=== PATIENT | female | born 1970 ===

== ENCOUNTER 2017-01-10 13:39 | Emergency (ER) | payer MEDICAID, OTHER ==
[2017-01-10 13:43] VITALS: BMI 22.3
[2017-01-10 13:48] VITALS: TEMP 97.9; O2SAT 99
[2017-01-10] MEDS ORDERED: DiphenhydrAMINE 12.5 mg/5 ml LIQ UD (5 ml) PO STA (13:58)
--- NOTE | 2017-01-10 14:16 | ED PDOC ---
Arrival/HPI - General Chief Complaint: Allergic Reaction Time Seen by Provider: 01/10/17 13:51 Historian: Patient - History of Present Illness Narrative History of Present Illness (Text): 01/10/17 14:13 46yo female who present with complaint of pruritic rash x 2weeks. states she came to the ED today because of the worsening symptoms. Has been taking Benadryl without relieve. Denies drooling, stridor, new mediation/food/detergent , any other inciting factors. Past Medical History - Provider Review Nursing Documentation Reviewed: Yes - Infectious Disease Hx of Infectious Diseases: None - Cardiac Hx Cardiac Disorders: No - Pulmonary Hx Respiratory Disorders: No - Neurological Hx Neurological Disorder: No - HEENT Hx HEENT Disorder: No - Renal Hx Renal Disorder: No - Endocrine/Metabolic Hx Endocrine Disorders: No - Hematological/Oncological Hx Blood Disorders: No - Integumentary Hx Dermatological Disorder: No - Musculoskeletal/Rheumatological Hx Musculoskeletal Disorders: No Hx Falls: No - Gastrointestinal Hx Gastrointestinal Disorders: Yes Other/Comment: Diverticulosis - Genitourinary/Gynecological Hx Genitourinary Disorders: Yes (Fibroids) - Psychiatric Hx Psychophysiologic Disorder: No Hx Substance Use: No - Surgical History Other/Comment: Ovarian sx/ovarian cyst - Anesthesia Hx Anesthesia: Yes Hx Anesthesia Reactions: No Hx Malignant Hyperthermia: No Family/Social History - Physician Review Nursing Documentation Reviewed: Yes Family/Social History: Unknown Family HX Smoking Status: Former Smoker Hx Alcohol Use: Yes Frequency of alcohol use: Socially Hx Substance Use: No Allergies/Home Meds Allergies/Adverse Reactions: Allergies seafood Allergy (Severe, Uncoded 01/10/17 13:43) ANAPHYLAXIS Review of Systems - Physician Review All systems were reviewed & negative as marked: Yes - Review of Systems Constitutional: Normal Eyes: Normal ENT: Normal Respiratory: Normal Cardiovascular: Normal Gastrointestinal: Normal Genitourinary Female: Normal Musculoskeletal: Normal Skin: Rash, Pruritis Neurological: Normal Endocrine: Normal Hemo/Lymphatic: Normal Psychiatric: Normal Physical Exam Vital Signs Reviewed: Yes Vital Signs Temp Pulse Resp BP Pulse Ox 01/10/17 14:49 97.9 F 92 H 16 142/83 99 01/10/17 13:46 97.9 F 75 17 134/71 99 Temperature: Afebrile Blood Pressure: Normal Pulse: Regular Respiratory Rate: Normal Appearance: Positive for: Well-Appearing, Non-Toxic, Comfortable Pain Distress: None Mental Status: Positive for: Alert and Oriented X 3 - Systems Exam Head: Present: Atraumatic, Normocephalic Pupils: Present: PERRL Extroacular Muscles: Present: EOMI Conjunctiva: Present: Normal Mouth: Present: Moist Mucous Membranes. No: Drooling Pharnyx: No: Strider Neck: Present: Normal Range of Motion Respiratory/Chest: Present: Clear to Auscultation, Good Air Exchange. No: Respiratory Distress, Accessory Muscle Use, Wheezes Cardiovascular: Present: Regular Rate and Rhythm, Normal S1, S2. No: Murmurs Abdomen: Present: Normal Bowel Sounds. No: Tenderness, Distention, Peritoneal Signs Back: Present: Normal Inspection Upper Extremity: Present: Normal Inspection. No: Cyanosis, Edema Lower Extremity: Present: Normal Inspection. No: Edema Neurological: Present: GCS=15, CN II-XII Intact, Speech Normal Skin: Present: Warm, Dry, Rashes (Hives noted to the extremities), Normal Color Psychiatric: Present: Alert, Oriented x 3, Normal Insight, Normal Concentration Medical Decision Making ED Course and Treatment: 01/10/17 14:53 Pt was comfortable in ED. No stridor. No drooling noted. Lung was CTA b/l. PT was treated with Benadryl, pepcid and prednisone in ED. She was DC home with similar medication. Referred to a Block Breaker Operator. TRT ED for any new or worsening symptoms. - Medication Orders Current Medication Orders: Discontinued Medications Diphenhydramine HCl (Benadryl) 25 mg PO STAT STA Stop: 01/10/17 13:59 Last Admin: 01/10/17 14:17 Dose: 25 mg Famotidine (Pepcid) 20 mg PO STAT STA Stop: 01/10/17 13:58 Last Admin: 01/10/17 14:17 Dose: 20 mg Prednisone (Prednisone Tab) 40 mg PO STAT STA Stop: 01/10/17 13:58 Last Admin: 01/10/17 14:17 Dose: 40 mg Disposition/Present on Arrival - Present on Arrival Any Indicators Present on Arrival: No History of DVT/PE: No History of Uncontrolled Diabetes: No Urinary Catheter: No History of Decub. Ulcer: No History Surgical Site Infection Following: None - Disposition Have Diagnosis and Disposition been Completed?: Yes Diagnosis: Allergic reaction Disposition: HOME/ ROUTINE Disposition Time: 14:20 Patient Plan: Discharge Condition: STABLE Discharge Instructions (ExitCare): Urticaria (ED) Additional Instructions: Follow up with your Doctor Return to Ed for any new or worsening symptom Prescriptions: Famotidine [Pepcid] 20 mg PO DAILY #10 tab predniSONE [Prednisone] 20 mg PO BID #6 tab Referrals: Mustapha Chaves MD [Staff Provider] - Follow up with primary Forms: [employer] (Luxembourgish)
[2017-01-10 14:52] VITALS: BP 142/83; PULSE 92; RESP 16
== END 2017-01-10 14:25 | disposition home or self-care (01) ==
LOC: ED 13:39
DX: T78.40XA Allergy, unspecified, initial encounter (principal); Z87.891 Personal history of nicotine dependence

== ENCOUNTER 2017-10-14 12:52 | Emergency (ER) | payer MEDICAID ==
[2017-10-14 13:07] VITALS: TEMP 99.4; O2SAT 99; BMI 24.7
[2017-10-14] MEDS ORDERED: Sodium Chloride 0.9% 1,000 ML IV STA (13:33)
--- NOTE | 2017-10-14 13:33 | ED PDOC ---
Arrival/HPI - General Chief Complaint: ENT Problem Time Seen by Provider: 10/14/17 13:15 Historian: Patient - History of Present Illness Narrative History of Present Illness (Text): 10/14/17 13:30 A 47 year old female, whose past medical history includes fibroids and ovarian cyst, presents to the emergency department complaining of right flank pain radiating to RLQ with associated nausea for 3 weeks. Patient. Patient reports also experiencing 3 week history of left ear ache, as well as right ear ache with associated sore throat for 2 weeks. Patient was seen at the medical center and prescribed 10 days of Amoxicillin, however has had no relief of symptoms. Patient denies any vomiting, diarrhea, urinary frequency, dysuria, hematuria, shortness of breath, or any other complaints at this time. Also, patient mentions quitting smoking 5 months ago, is a social drinker, and denies any history of substance abuse. LMP 3 weeks ago. No PMD Associated Symptoms (Text): 10/14/17 16:40 Three-week history of right flank and right lower quadrant abdominal pain. Status post appendectomy. Patient also complains of bilateral earaches sore throat cough congestion and URI and wheezing. Past Medical History - Provider Review Nursing Documentation Reviewed: Yes - Infectious Disease Hx of Infectious Diseases: None - Cardiac Hx Cardiac Disorders: No - Pulmonary Hx Respiratory Disorders: No - Neurological Hx Neurological Disorder: No - HEENT Hx HEENT Disorder: No - Renal Hx Renal Disorder: No - Endocrine/Metabolic Hx Endocrine Disorders: No - Hematological/Oncological Hx Blood Disorders: No - Integumentary Hx Dermatological Disorder: No - Musculoskeletal/Rheumatological Hx Musculoskeletal Disorders: No Hx Falls: No - Gastrointestinal Hx Gastrointestinal Disorders: Yes Other/Comment: Diverticulosis - Genitourinary/Gynecological Hx Genitourinary Disorders: Yes (Fibroids) - Psychiatric Hx Psychophysiologic Disorder: No Hx Substance Use: Yes - Surgical History Other/Comment: Ovarian sx/ovarian cyst - Anesthesia Hx Anesthesia: Yes Hx Anesthesia Reactions: No Hx Malignant Hyperthermia: No Family/Social History - Physician Review Nursing Documentation Reviewed: Yes Family/Social History: No Known Family HX Smoking Status: Former Smoker (Quit smoking 6 months ago) Hx Alcohol Use: Yes Hx Substance Use: Yes Allergies/Home Meds Allergies/Adverse Reactions: Allergies seafood Allergy (Severe, Uncoded 10/14/17 13:07) ANAPHYLAXIS Review of Systems - Physician Review All systems were reviewed & negative as marked: Yes - Review of Systems ENT: Sore Throat, Other (left ear ache for 3 weeks; right ear ache for 2 weeks) Respiratory: Cough, Wheezing. absent: SOB Cardiovascular: absent: Chest Pain Gastrointestinal: Abdominal Pain (RLQ region), Nausea. absent: Diarrhea, Vomiting Genitourinary Female: absent: Dysuria, Frequency, Hematuria, Urine Output Changes Musculoskeletal: Other (right flank pain radiating to RLQ) Neurological: absent: Headache, Dizziness, Focal Weakness Physical Exam Vital Signs Reviewed: Yes Vital Signs Temp Pulse Resp BP Pulse Ox 10/14/17 16:37 81 10/14/17 15:45 81 17 132/80 99 10/14/17 13:02 99.4 F 85 18 138/88 99 Temperature: Afebrile Blood Pressure: Normal Pulse: Regular Respiratory Rate: Normal Appearance: Positive for: Well-Appearing, Non-Toxic, Comfortable Pain Distress: None Mental Status: Positive for: Alert and Oriented X 3 - Systems Exam Head: Present: Atraumatic, Normocephalic Pupils: Present: PERRL Extroacular Muscles: Present: EOMI Conjunctiva: Present: Normal Ears: Present: NORMAL TM (right ear canal clear; left ear canal has some cerumen ), Normal Canal. No: Erythema, TM Bulging Mouth: Present: Moist Mucous Membranes Pharnyx: Present: Normal. No: ERYTHEMA, EXUDATE, TONSILS ENLARGED Neck: Present: Normal Range of Motion Respiratory/Chest: Present: Wheezes (bilaterally), Rhonchi (bilaterally) Cardiovascular: Present: Regular Rate and Rhythm, Normal S1, S2. No: Murmurs, Rub Abdomen: Present: Tenderness (mild RLQ tenderness), Rebound. No: Guarding Back: Present: CVA Tenderness (mild) Upper Extremity: Present: Normal Inspection. No: Cyanosis, Edema Lower Extremity: Present: Normal Inspection. No: Edema Neurological: Present: GCS=15, CN II-XII Intact, Speech Normal, Motor Func Grossly Intact Skin: Present: Warm, Dry, Normal Color. No: Rashes Psychiatric: Present: Alert, Oriented x 3, Normal Insight, Normal Concentration Medical Decision Making ED Course and Treatment: 10/14/17 13:33 Impression: 47 year old female with right flank pain radiating to RLQ with associated nausea, as well as left ear ache, as well as right ear ache with associated sore throat. Physical exam shows right ear canal clear; left ear canal has some cerumen; normal throat exam, lungs wheezing/rhonchi bilaterally; mild CVA tenderness; mild RLQ tenderness with rebound, no guarding. Plan: -- Abd/Pelvis CT -- Labs -- Urinalysis -- IV Fluids -- Toradol -- Zofran -- Rapid Strep Group A Antigen -- Reassess and disposition Progress Notes: 10/14/17 16:43 Symptoms markedly improved post Toradol. - Lab Interpretations Lab Results: 10/14/17 13:44 10/14/17 13:44 Lab Results 10/14/17 13:44: Sodium 140, Potassium 3.6, Chloride 103, Carbon Dioxide 28, Anion Gap 13, BUN 8, Creatinine 0.6 L, Est GFR ( Amer) > 60, Est GFR (Non -Af Amer) > 60, Random Glucose 112 H, Calcium 9.4, Magnesium 2.0, Total Bilirubin 0.3, AST 29, ALT 30, Alkaline Phosphatase 102, Total Protein 7.3, Albumin 3.7, Globulin 3.6, Albumin/Globulin Ratio 1.0 L, Lipase 63 10/14/17 13:44: Grp A Beta Strep Ag Negative 10/14/17 13:44: WBC 12.5 H D, RBC 4.11, Hgb 13.2, Hct 37.8, MCV 92.0, MCH 32.1, MCHC 34.9, RDW 13.3, Plt Count 271, MPV 9.8, Gran % 67.9, Lymph % (Auto) 12.6 L , [place] % (Auto) 18.0 H, Eos % (Auto) 1.3 L, Baso % (Auto) 0.2, Gran # 8.50 H, Lymph # (Auto) 1.6, [place] # (Auto) 2.3 H, Eos # (Auto) 0.2, Baso # (Auto) 0.03 10/14/17 13:30: Urine Color Yellow, Urine Appearance Clear, Urine pH 6.0, Ur Specific [place] 1.010, Urine Protein Trace H, Urine Glucose (UA) Negative, Urine Ketones Negative, Urine Blood Trace-lysed H, Urine Nitrate Negative, Urine Bilirubin Negative, Urine Urobilinogen 0.2, Ur Leukocyte Esterase Trace H , Urine RBC 2 - 5, Urine WBC 5 - 10, Ur Epithelial Cells 6 - 8, Urine Bacteria Many - RAD Interpretation Radiology Orders: 10/14/17 13:33 ABD & PELVIS W/O PO OR IV CONT [CT] Stat 10/14/17 15:00 CHEST TWO VIEWS (PA/LAT) [RAD] Stat CT scan of the abdomen and pelvis is read by the radiologist shows right hydronephrosis with no definite stone present. There are phleboliths in the area. X-ray chest 2 views shows no infiltrate effusion cardiomegaly or pneumothorax Personnel Arbitrator: Radiologist - Medication Orders Current Medication Orders: Discontinued Medications Sodium Chloride (Sodium Chloride 0.9%) 1,000 mls @ 1,000 mls/hr IV .Q1H STA Stop: 10/14/17 14:32 Last Admin: 10/14/17 13:55 Dose: 1,000 mls/hr eMAR Start Stop Document 10/14/17 13:55 SF (Rec: 10/14/17 13:55 SF [email or web address]) Intravenous Solution Start Date 10/14/17 Start Time 13:55 End Date 10/14/17 End time 14:55 Total Infusion Time 60 Ketorolac Tromethamine (Toradol) 15 mg IVP STAT STA Stop: 10/14/17 13:34 Last Admin: 10/14/17 13:56 Dose: 15 mg MAR Pain Assessment Document 10/14/17 13:56 SF (Rec: 10/14/17 13:56 SF [id number]) Pain Reassessment Is this a pain reassessment? Yes Sleep Is patient sleeping during reassessment? No Presence of Pain Presence of Pain Yes IVP Administration Document 10/14/17 13:56 SF (Rec: 10/14/17 13:56 SF [email or web address]) Charges for Administration # of IVP Administrations 1 Ondansetron HCl (Zofran Inj) 4 mg IVP STAT STA Stop: 10/14/17 13:34 Last Admin: 10/14/17 13:56 Dose: 4 mg IVP Administration Document 10/14/17 13:56 SF (Rec: 10/14/17 13:56 SF [id number]) Charges for Administration # of IVP Administrations 1 - Scribe Statement The provider has reviewed the documentation as recorded by the Scribe Hanan Dabdi Provider Shaun Attestation: All medical record entries made by the Shaun were at my direction and personally dictated by me. I have reviewed the chart and agree that the record accurately reflects my personal performance of the history, physical exam, medical decision making, and the department course for this patient. I have also personally directed, reviewed, and agree with the discharge instructions and disposition. Disposition/Present on Arrival - Present on Arrival Any Indicators Present on Arrival: No History of DVT/PE: No History of Uncontrolled Diabetes: No Urinary Catheter: No History of Decub. Ulcer: No History Surgical Site Infection Following: None - Disposition Have Diagnosis and Disposition been Completed?: Yes Diagnosis: Hydronephrosis, Pharyngitis, Bronchitis Disposition: HOME/ ROUTINE Disposition Time: 15:31 Patient Plan: Discharge Condition: GOOD Discharge Instructions (ExitCare): Viral Pharyngitis, Hydronephrosis in Adults , Sore Throat in Adults, Acute Bronchitis Additional Instructions: Symptomatic treatment. Follow with PMD. Follow-up with urologist. Follow up in ER as needed. Prescriptions: Tramadol HCl [Ultram] 50 mg PO Q6 PRN #10 tab PRN Reason: Pain Albuterol HFA [Ventolin HFA 90 mcg/actuation (8 g)] 2 puff IH [id number] #1 puff Referrals: Bobby Stern MD [Staff Provider] - Follow up with primary Forms: [employer] (Georgian)
[2017-10-14 14:04] LABS: URINE BILIRUBIN NEGATIVE (NEGATIVE); URINE BLOOD TRACE-LYSED (NEGATIVE); URINE GLUCOSE (UA) NEGATIVE (NEGATIVE); URINE LEUKOCYTE ESTERASE TRACE Leu/uL (NEGATIVE); URINE PROTEIN TRACE mg/dL (<30 mg/dL); URINE UROBILINOGEN 0.2 E.U./dL (<1 E.U./dL)
[2017-10-14 14:11] LABS: URINE APPEARANCE CLEAR (CLEAR); URINE COLOR YELLOW (YELLOW)
[2017-10-14 14:15] LABS: URINE BACTERIA MANY (NEG)
[2017-10-14 14:21] LABS: BASO # 0.03 K/mm3 (0.0-2.0); BASO % 0.2 % (0.0-3.0); EOS # 0.2 (0.0-0.7); EOS % 1.3 % (1.5-5.0); GRAN # 8.5 (1.4-6.5); GRAN % 67.9 % (50.0-68.0); HEMOGLOBIN 13.2 g/dL (12.0-16.0); LYMPH # 1.6 (1.2-3.4); LYMPH % 12.6 % (22.0-35.0); MEAN CORPUSCULAR HEMOGLOBIN 32.1 pg (25.0-35.0); MEAN CORPUSCULAR HGB CONC 34.9 g/dl (31.0-37.0); MEAN PLATELET VOLUME 9.8 fl (7.0-11.0); MONO # 2.3 (0.1-0.6); RBC 4.11 10^6/uL (3.5-6.1); RED CELL DISTRIBUTION WIDTH 13.3 % (11.5-14.5); WHITE BLOOD COUNT 12.5 10^3/ul (4.5-11.0)
[2017-10-14 14:30] LABS: ALBUMIN 3.7 g/dL (3.0-4.8); ALT/SGPT 30 U/L (7-56); AST/SGOT 29 U/L (14-36); BLOOD UREA NITROGEN 8 mg/dL (7-21); CALCIUM 9.4 mg/dL (8.4-10.5); GFR AFRICAN-AMERICAN > 60; GFR NON-AFRICAN AMERICAN > 60; LIPASE 63 U/L (23-300)
--- NOTE | 2017-10-14 15:12 | CT ---
Date of service: 10/14/2017 PROCEDURE: CT Abdomen and Pelvis without intravenous contrast HISTORY: right stone run COMPARISON: None. TECHNIQUE: Unenhanced study. Neither oral nor intravenous contrast administered. Radiation dose: Total exam DLP = 339.12 mGy-cm. This CT exam was performed using one or more of the following dose reduction techniques: Automated exposure control, adjustment of the mA and/or kV according to patient size, and/or use of iterative reconstruction technique. FINDINGS: LOWER THORAX: Unremarkable. LIVER: Unremarkable. No gross lesion or ductal dilatation. GALLBLADDER AND BILE DUCTS: Unremarkable. PANCREAS: Unremarkable. No gross lesion or ductal dilatation. SPLEEN: Unremarkable. ADRENALS: Unremarkable. No mass. KIDNEYS AND URETERS: Right kidney in ureter: Mild right hydronephrosis and hydroureter. No definite calculi identified although there are several phleboliths in the vicinity of the distal right ureter and ureterovesical junction. No upper tract calculi identified. Unremarkable left kidney and ureter. VASCULATURE: Unremarkable. No aortic aneurysm. BOWEL: Diverticulosis without an acute inflammatory component or other associated pathologic process. Surgical suture lines proximal small bowel. No intrinsic abnormalities identified. APPENDIX: Surgical clips from prior appendectomy. PERITONEUM: Unremarkable. No free fluid. No free air. LYMPH NODES: Unremarkable. No enlarged lymph nodes. BLADDER: Unremarkable. REPRODUCTIVE: Unremarkable. BONES: No acute fracture. OTHER FINDINGS: Cystic pelvic mass which does not appear to be associate with the adnexa. This may represent focal fluid. IMPRESSION: Dilated right collecting system and ureter without visible calculus. No bladder abnormalities detected. Additional benign and/or incidental findings described above.
--- NOTE | 2017-10-14 15:27 | RAD ---
Date of service: 10/14/2017 HISTORY: Cough. COMPARISON: 06/27/2015 single-view chest. 06/27/2015 CT thorax TECHNIQUE: Chest PA and lateral FINDINGS: LUNGS: No active pulmonary disease. PLEURA: No significant pleural effusion identified. No pneumothorax apparent. CARDIOVASCULAR: Normal. OSSEOUS STRUCTURES: No significant abnormalities. VISUALIZED UPPER ABDOMEN: Normal. OTHER FINDINGS: None. IMPRESSION: No active disease. No significant interval change compared to the prior examination(s).
[2017-10-14 16:35] VITALS: BP 132/80; PULSE 81; RESP 17
== END 2017-10-14 15:45 | disposition home or self-care (01) ==
LOC: ED 12:52
DX: J02.9 Acute pharyngitis, unspecified (principal); N13.30 Unspecified hydronephrosis; J40 Bronchitis, not specified as acute or chronic; Z87.891 Personal history of nicotine dependence; Z90.49 Acquired absence of other specified parts of digestive tract
CPT/HCPCS: 71046; 74176; 80053; 81001; 83690; 83735; 85025; 87070; 87430; 96361; 96374; 96375; 99285; J1885; J2405; J7030

== ENCOUNTER 2018-02-02 05:43 | Inpatient (IN) | payer MEDICAID ==
[2018-02-02 05:44] VITALS: BMI 24.7
[2018-02-02] MEDS ORDERED: Sodium Chloride 0.9% 1,000 ML IV STA ×2 (06:00→07:38)
[2018-02-02] MEDS ORDERED: Morphine 4 mg/ml ISec IVP STA (06:00)
--- NOTE | 2018-02-02 06:03 | ED PDOC ---
Arrival/HPI - General Time Seen by Provider: 02/02/18 05:50 Historian: Patient - History of Present Illness Narrative History of Present Illness (Text): 02/02/18 06:00 47 y/o F w/ PMH of appendectomy, fibroids and ovarian cyst s/p gastric bypass(2008) presenting to the emergency department complaining of right flank pain for 1 week. The patient states pain is sharp worsened with deep inspiration. She reports chills and has been unable to tolerate PO for 3 days due to vomiting. She describes her pain as radiating her right side of the abdomen. Patient denies any dizziness, chest pain, cough, neck pain, urinary/bowel changes, or any other complaint. Time/Duration: 1 week Symptom Onset: Gradual Symptom Course: Worsening Quality: Stabbing Activities at Onset: Eating Context: Home Past Medical History - Provider Review Nursing Documentation Reviewed: Yes - Travel History Have you recently traveled outside [place] w/in the past 3 mons?: No - Infectious Disease Hx of Infectious Diseases: None - Cardiac Hx Cardiac Disorders: No - Pulmonary Hx Respiratory Disorders: No - Neurological Hx Neurological Disorder: No - HEENT Hx HEENT Disorder: No - Renal Hx Renal Disorder: No - Endocrine/Metabolic Hx Endocrine Disorders: No - Hematological/Oncological Hx Blood Disorders: No - Integumentary Hx Dermatological Disorder: No - Musculoskeletal/Rheumatological Hx Musculoskeletal Disorders: No Hx Falls: No - Gastrointestinal Hx Gastrointestinal Disorders: Yes Other/Comment: Diverticulosis - Genitourinary/Gynecological Hx Genitourinary Disorders: Yes (Fibroids) - Psychiatric Hx Psychophysiologic Disorder: No Hx Substance Use: Yes - Surgical History Other/Comment: Ovarian sx/ovarian cyst - Anesthesia Hx Anesthesia: Yes Hx Anesthesia Reactions: No Hx Malignant Hyperthermia: No Family/Social History - Physician Review Nursing Documentation Reviewed: Yes Family/Social History: No Known Family HX Smoking Status: Former Smoker Hx Alcohol Use: Yes Hx Substance Use: Yes Allergies/Home Meds Allergies/Adverse Reactions: Allergies seafood Allergy (Severe, Uncoded 10/14/17 13:07) ANAPHYLAXIS Home Medications: Home Meds Medication Instructions Recorded Confirmed No Known Home Med 02/02/18 02/02/18 Review of Systems - Physician Review All systems were reviewed & negative as marked: Yes - Review of Systems Constitutional: Night Sweats Respiratory: SOB (Unable to breath deep due to pain) Cardiovascular: absent: Chest Pain Gastrointestinal: Abdominal Pain (right flank and abdominal pain), Nausea, Vomiting Genitourinary Female: absent: Urine Output Changes Musculoskeletal: absent: Neck Pain Neurological: absent: Dizziness Physical Exam Vital Signs Reviewed: Yes Vital Signs Temp Pulse Resp BP Pulse Ox 02/02/18 05:58 99.3 F 105 H 18 165/98 H 97 Temperature: Afebrile Blood Pressure: Hypertensive Pulse: Tachycardic Respiratory Rate: Normal Appearance: Positive for: Non-Toxic, Other (Tearful on exam) Pain Distress: None Mental Status: Positive for: Alert and Oriented X 3 - Systems Exam Head: Present: Atraumatic, Normocephalic Pupils: Present: PERRL Extroacular Muscles: Present: EOMI Conjunctiva: Present: Normal Mouth: Present: Moist Mucous Membranes Neck: Present: Normal Range of Motion Respiratory/Chest: Present: Clear to Auscultation, Decreased Breath Sounds (shallow breath sounds bilaterally). No: Wheezes, Rales, Rhonchi Cardiovascular: Present: Regular Rate and Rhythm, Normal S1, S2. No: Murmurs Abdomen: Present: Tenderness (Tender to palpation: RUQ and right flank). No: Distention, Peritoneal Signs Back: Present: CVA Tenderness (R CVA tenderness) Upper Extremity: Present: Normal Inspection. No: Cyanosis, Edema Lower Extremity: Present: Normal Inspection. No: Edema Neurological: Present: GCS=15, CN II-XII Intact, Speech Normal Skin: Present: Warm, Dry, Normal Color. No: Rashes Psychiatric: Present: Alert, Oriented x 3, Normal Insight, Normal Concentration Medical Decision Making ED Course and Treatment: 02/02/18 06:04 Impression: 47 year old female presents with right flank and RUQ pain. Plan: -- Labs -- CT abd and pelvis -- Reglan -- Morphine -- Urinalysis --Urine culture -- Reassess and disposition Prior Visits: Notes and results from previous visits were reviewed. Patient was last seen in the emergency department on 10/14/17 with right flank pain and nausea, along with sore throat and earache, for 3 weeks following appendectomy. Patient was discharged with medication and instructed to follow up with PMD. Progress Notes: 02/02/18 0700 Labs show no evidence of leukocytosis. Pending CT a/p results. Signout given to Dr. Love who will resume the patient's care. - RAD Interpretation Radiology Orders: 02/02/18 05:58 ABD & PELVIS IV CONTRAST ONLY [CT] Stat - Scribe Statement The provider has reviewed the documentation as recorded by the Scribe Geovanni Blandon Provider Scribe Attestation: All medical record entries made by the Scribe were at my direction and personally dictated by me. I have reviewed the chart and agree that the record accurately reflects my personal performance of the history, physical exam, medical decision making, and the department course for this patient. I have also personally directed, reviewed, and agree with the discharge instructions and disposition. Disposition/Present on Arrival - Present on Arrival Any Indicators Present on Arrival: No History of DVT/PE: No History of Uncontrolled Diabetes: No Urinary Catheter: No History of Decub. Ulcer: No History Surgical Site Infection Following: None - Disposition Have Diagnosis and Disposition been Completed?: Yes Diagnosis: UTI (urinary tract infection), Sepsis, Pyelonephritis Disposition: HOSPITALIZED Disposition Time: 07:00 Patient Problems: Current Active Problems Problem Status Onset UTI (urinary tract infection) Acute Sepsis Acute Pyelonephritis Acute Condition: GUARDED
[2018-02-02 06:38] LABS: BASO # 0.02 K/mm3 (0.0-2.0); BASO % 0.3 % (0.0-3.0); EOS # 0.1 (0.0-0.7); EOS % 1.2 % (1.5-5.0); GRAN # 5.41 (1.4-6.5); GRAN % 77.9 % (50.0-68.0); MEAN CORPUSCULAR HEMOGLOBIN 31.4 pg (25.0-35.0); MEAN CORPUSCULAR HGB CONC 33.7 g/dl (31.0-37.0); MEAN PLATELET VOLUME 10.3 fl (7.0-11.0); MONO # 0.4 (0.1-0.6); MONO % 5.6 % (1.0-6.0); RBC 4.46 10^6/uL (3.5-6.1); RED CELL DISTRIBUTION WIDTH 13.5 % (11.5-14.5); WHITE BLOOD COUNT 6.9 10^3/uL (4.5-11.0)
[2018-02-02 07:10] LABS: VENOUS BLOOD GAS BASE EXCESS 6.4 mmol/L (0.0-2.0); VENOUS BLOOD GAS PO2 19 mm/Hg (30-55); VENOUS BLOOD PH 7.43 (7.32-7.43)
--- NOTE | 2018-02-02 07:17 | ED PDOC ---
Physical Exam Vital Signs Reviewed: Yes Vital Signs Temp Pulse Resp BP Pulse Ox 02/02/18 05:58 99.3 F 105 H 18 165/98 H 97 Temperature: Afebrile Blood Pressure: Hypertensive Pulse: Tachycardic Respiratory Rate: Normal Appearance: Positive for: Well-Appearing, Non-Toxic, Comfortable Pain Distress: None Mental Status: Positive for: Alert and Oriented X 3 Medical Decision Making ED Course and Treatment: 02/02/18 07:16 Patient endorsed to me by Dr. Weston. Patient is a 47 year old female presenting with right flank pain. Currently waiting lab and CT results. 02/02/18 07:38 Upon reassessment, patient's temperature was measured to be 103 degrees. CODE SEPSIS called. 02/02/18 08:33 Procedure: Chest X-ray Impression: No focal consolidation, significant pleural effusion, or definite pneumothorax identified. Dictator: Vero Spears MD 02/02/18 10:09 Procedure: CT Abdomen and Pelvis without intravenous contrast Impression: Mild right hydronephrosis and mild hydroureter without evidence of renal calculus. This is unchanged from prior exam however there is new mild perinephric fat infiltration. Enlarged leiomyomatous uterus. New left ovarian cyst measuring roughly 2.9 centimeters. Recommend follow-up pelvic ultrasound. Dictator: J Luis Jackson MD Antibiotics administered. Vitals stable. Dr. Tarango accepts patient to hospitalist service. - Lab Interpretations Lab Results: 02/02/18 06:15 Lab Results 02/02/18 06:15: WBC 6.9, RBC 4.46, Hgb 14.0, Hct 41.5, MCV 93.0, MCH 31.4, MCHC 33.7, RDW 13.5, Plt Count 228, MPV 10.3, Gran % 77.9 H, Lymph % (Auto) 15.0 L, [place] % (Auto) 5.6, Eos % (Auto) 1.2 L, Baso % (Auto) 0.3, Gran # 5.41, Lymph # (Auto) 1.0 L, [place] # (Auto) 0.4, Eos # (Auto) 0.1, Baso # (Auto) 0.02 - RAD Interpretation Radiology Orders: 02/02/18 05:58 ABD & PELVIS IV CONTRAST ONLY [CT] Stat 02/02/18 06:07 CHEST PORTABLE [RAD] Stat - Medication Orders Current Medication Orders: Discontinued Medications Sodium Chloride (Sodium Chloride 0.9%) 1,000 mls @ 999 mls/hr IV .Q1H1M STA Stop: 02/02/18 07:00 Last Admin: 02/02/18 06:22 Dose: 999 mls/hr eMAR Start Stop Document 02/02/18 06:22 SS (Rec: 02/02/18 06:22 SS [id number]) Intravenous Solution Start Date 02/02/18 Start Time 06:22 End Date 02/02/18 End time 07:22 Total Infusion Time 60 Metoclopramide HCl (Reglan) 10 mg IVP STAT STA Stop: 02/02/18 06:01 Last Admin: 02/02/18 06:22 Dose: 10 mg IVP Administration Document 02/02/18 06:22 SS (Rec: 02/02/18 06:22 SS [id number]) Charges for Administration # of IVP Administrations 1 Morphine Sulfate (Morphine) 4 mg IVP STAT STA Stop: 02/02/18 06:01 Disposition/Present on Arrival - Present on Arrival Any Indicators Present on Arrival: No History of DVT/PE: No History of Uncontrolled Diabetes: No Urinary Catheter: No History of Decub. Ulcer: No History Surgical Site Infection Following: None - Disposition Have Diagnosis and Disposition been Completed?: Yes Diagnosis: UTI (urinary tract infection), Sepsis, Pyelonephritis Disposition: HOSPITALIZED Disposition Time: 09:55 Patient Plan: Admission, Telemetry Condition: GUARDED
[2018-02-02 07:28] LABS: ALBUMIN 4.3 g/dL (3.0-4.8); ALT/SGPT 23 U/L (7-56); AST/SGOT 38 U/L (14-36); BLOOD UREA NITROGEN 10 mg/dL (7-21); CALCIUM 9.3 mg/dL (8.4-10.5); GFR NON-AFRICAN AMERICAN > 60; LIPASE 127 U/L (23-300)
[2018-02-02 07:38] LABS: TROPONIN I < 0.01 ng/mL
[2018-02-02] MEDS ORDERED: Piperacill/Tazo 4.5gm in NS 4.5 GM/100 ML BAG IVPB STA (07:39)
[2018-02-02] MEDS ORDERED: Vancomycin 1gm in NS 250ml 1 GM/250 ML BAG IVPB STA (07:39)
[2018-02-02 07:44] LABS: PH,URINE >=9.0 (4.7-8.0); URINE APPEARANCE CLOUDY (CLEAR); URINE BILIRUBIN SMALL (NEGATIVE); URINE BLOOD LARGE (NEGATIVE); URINE COLOR LIGHT RED (YELLOW); URINE GLUCOSE (UA) NEGATIVE (NEGATIVE); URINE LEUKOCYTE ESTERASE TRACE Leu/uL (NEGATIVE); URINE PROTEIN 100 mg/dL (<30 mg/dL)
[2018-02-02 07:55] LABS: HCG,QUALITATIVE URINE NEGATIVE (NEGATIVE)
[2018-02-02 07:57] LABS: URINE RBC TNTC /hpf (0-2)
[2018-02-02 07:59] LABS: URINE BACTERIA LARGE (NEG)
--- NOTE | 2018-02-02 08:26 | RAD ---
HISTORY: abdominal pain COMPARISON: Chest x-ray performed 10/14/17 TECHNIQUE: Chest, one view. FINDINGS: LUNGS: No focal consolidation. Please note that chest x-ray has limited sensitivity for the detection of pulmonary masses. PLEURA: No significant pleural effusion identified. No definite pneumothorax . CARDIOVASCULAR: Heart size appears within normal limits. No significant atherosclerotic calcification present. OSSEOUS STRUCTURES: No acute osseous abnormality identified. VISUALIZED UPPER ABDOMEN: Unremarkable. OTHER FINDINGS: None. IMPRESSION: No focal consolidation, significant pleural effusion, or definite pneumothorax identified.
--- NOTE | 2018-02-02 09:53 | CT ---
Date of service: 02/02/2018 PROCEDURE: CT Abdomen and Pelvis without intravenous contrast HISTORY: R flank pain COMPARISON: 10/14/2017 TECHNIQUE: Technique. Contrast dose: Radiation dose: Total exam DLP = 343.84 mGy-cm. This CT exam was performed using one or more of the following dose reduction techniques: Automated exposure control, adjustment of the mA and/or kV according to patient size, and/or use of iterative reconstruction technique. FINDINGS: LOWER THORAX: Unremarkable. LIVER: Unremarkable. No gross lesion or ductal dilatation. GALLBLADDER AND BILE DUCTS: Unremarkable. PANCREAS: Unremarkable. No gross lesion or ductal dilatation. SPLEEN: Unremarkable. ADRENALS: Unremarkable. No mass. KIDNEYS AND URETERS: Mild right hydronephrosis and mild hydroureter without evidence of renal calculus. This is unchanged from prior exam however there is new mild perinephric fat infiltration. VASCULATURE: Unremarkable. No aortic aneurysm. No aortic atherosclerotic calcification or mural plaque present. BOWEL: Dilated segment of small bowel in the vicinity of previously noted surgical sutures. APPENDIX: Unremarkable. Normal appendix. PERITONEUM: Unremarkable. No free fluid. No free air. LYMPH NODES: Unremarkable. No enlarged lymph nodes. BLADDER: Unremarkable. REPRODUCTIVE: Enlarged leiomyomatous uterus. New left ovarian cyst measuring roughly 2.9 centimeters. Recommend follow-up pelvic ultrasound. BONES: No acute fracture. OTHER FINDINGS: None. IMPRESSION: Mild right hydronephrosis and mild hydroureter without evidence of renal calculus. This is unchanged from prior exam however there is new mild perinephric fat infiltration. Enlarged leiomyomatous uterus. New left ovarian cyst measuring roughly 2.9 centimeters. Recommend follow-up pelvic ultrasound.
[2018-02-02 10:00] LABS: VENOUS BLOOD GAS BASE EXCESS 0.6 mmol/L (0.0-2.0); VENOUS BLOOD GAS PO2 159 mm/Hg (30-55); VENOUS BLOOD PH 7.44 (7.32-7.43)
--- NOTE | 2018-02-02 11:24 | PCM.SEPTIC ---
Sepsis Progress Note - Reassessment Type Date of Evaluation: 02/02/18 Time of Evaluation: 11:22 Reassessment Type: Non-invasive reassessment - Non Invasive Reassessment Were the most recent vital sign reviewed: Yes Vital Sign (Latest): Temp Pulse Resp BP Pulse Ox 97.5 F L 105 H 18 175/86 H 96 02/02/18 10:13 02/02/18 10:13 02/02/18 10:13 02/02/18 10:13 02/02/18 10:13 Cardiovascular: Yes: Regular Rate, Rhythm. No: Chest Non Tender, JVD, Murmur, Tachycardia, Irregularly Irregular Respiratory: Yes: Normal Breath Sounds. No: Rales, Rhonchi, Stridor, Wheezing Capillary Refill: Normal (Less than 2 sec) Pulses: Normal Radial, Normal Dorsalis Pedis, Normal Posterior Tibialis Skin: Normal Color, Warm - Invasive Reassessment (complete 2 of 4) Was a Central Venous Pressure Measurement obtained within 6 Hours after the presentation of septic shock: No Was a central venous oxygen measurement obtained within 6 hours after the presentation of septic shock: No Was a bedside cardiovascular ultrasound performed within 6 hours after the presentation of septic shock: No Was a passive leg raise performed or was a fluid challenge performed within 6 hrs of the initial fluid bolus: No Passive Leg Raise Result: Not Applicable Fluid Challenge performed: No
[2018-02-02] MEDS: Morphine 2 mg/ml ISec IVP PRN ×2 (12:45→20:32)
[2018-02-02] MEDS: Piperacillin/Tazobact 3.375 gm 100 ML IVPB SCH ×2 (12:47→18:31)
[2018-02-02] MEDS: Sodium Chloride 0.9% 1,000 ML IV SCH ×2 (12:55→20:34)
--- NOTE | 2018-02-02 13:15 | CP.PCM.HP ---
<María ElenaOusmane - Last Filed: 02/02/18 17:09> History of Present Illness - History of Present Illness History of Present Illness: PGY-1 H&P for Dr. Tarango's service cc: R flank pain Patient is a 47 year old female with past medical history of appendectomy, fibroids, ovarian cysts, alcohol and drug abuse (which patient denies) presenting with worsening R sided flank pain x 1 week with associated fever (Tmax 103) x 2 days. Patient states the pain is acute in onset, sharp, and localized to the R flank/RUQ with no radiation of pain down to the groin. She took Motrin at home for pain which did not help. Patient also endorses nausea and vomiting for the past 3 days with multiple episodes of non-bloody, non- bilious vomiting prior to arrival and in the ED prior to interview. No h eadaches, dizziness, changes in vision, chest pain, palpitations, acute shortness of breath, cough, diarrhea, constipation, dysuria, urinary frequency or urgency, or changes in stool. Code sepsis called in the ED at 11:22 AM, temperature of 103 on admission with lactate of 2.6. PMHx: alcohol abuse, drug abuse (pt denies both), fibroids, ovarian cysts PSHx: appendectomy, tubal ligation, fibroids removal Allergies: NKDA Home Medications: denies Social Hx: former smoker, denies alcohol or illicit drug use--hx of cocaine and opiates abuse per chart FHx: noncontributory PMD: Dr. Ward Insurance: [employer] Present on Admission - Present on Admission Any Indicators Present on Admission: No Review of Systems - Review of Systems All systems: reviewed and no additional remarkable complaints except Review of Systems: as per HPI Past Patient History - Infectious Disease Hx of Infectious Diseases: None - Past Social History Smoking Status: Former Smoker - CARDIAC Hx Cardiac Disorders: No - PULMONARY Hx Respiratory Disorders: No - NEUROLOGICAL Hx Neurological Disorder: No - HEENT Hx HEENT Problems: No - RENAL Hx Chronic Kidney Disease: No - ENDOCRINE/METABOLIC Hx Endocrine Disorders: No - HEMATOLOGICAL/ONCOLOGICAL Hx Blood Disorders: No - INTEGUMENTARY Hx Dermatological Problems: No - MUSCULOSKELETAL/RHEUMATOLOGICAL Hx Musculoskeletal Disorders: No Hx Falls: No - GASTROINTESTINAL Hx Gastrointestinal Disorders: Yes Other/Comment: Diverticulosis - GENITOURINARY/GYNECOLOGICAL Hx Genitourinary Disorders: Yes (Fibroids) - PSYCHIATRIC Hx Psychophysiologic Disorder: No Hx Substance Use: Yes - SURGICAL HISTORY Other/Comment: Ovarian sx/ovarian cyst - ANESTHESIA Hx Anesthesia: Yes Hx Anesthesia Reactions: No Hx Malignant Hyperthermia: No Meds Allergies/Adverse Reactions: Allergies Allergy/AdvReac Type Severity Reaction Status Date / Time seafood Allergy Severe ANAPHYLAXIS Uncoded 10/14/17 13:07 Physical Exam - Constitutional Appears: In Acute Distress - Head Exam Head Exam: ATRAUMATIC, NORMAL INSPECTION, NORMOCEPHALIC - Eye Exam Eye Exam: EOMI, Normal appearance Pupil Exam: NORMAL ACCOMODATION - ENT Exam ENT Exam: Mucous Membranes Moist, Normal Exam - Neck Exam Neck exam: Positive for: Full Rom, Normal Inspection - Respiratory Exam Respiratory Exam: Clear to Auscultation Bilateral, NORMAL BREATHING PATTERN. absent: Rales, Rhonchi, Wheezes, Respiratory Distress, Stridor - Cardiovascular Exam Cardiovascular Exam: Tachycardia, +S1, +S2 - GI/Abdominal Exam GI & Abdominal Exam: Normal Bowel Sounds, Soft, Tenderness (TTP RUQ). absent: Distended, Firm, Guarding, Rebound, Rigid - Extremities Exam Extremities exam: Positive for: normal capillary refill, normal inspection, pedal pulses present. Negative for: calf tenderness, joint swelling, pedal edema - Back Exam Back exam: CVA tenderness (R), NORMAL INSPECTION - Neurological Exam Neurological exam: Alert, CN II-XII Intact, Oriented x3 - Psychiatric Exam Psychiatric exam: Normal Affect, Normal Mood - Skin Skin Exam: Dry, Intact, Normal Color, Warm Results - Vital Signs Recent Vital Signs: Last Vital Signs Temp 103.0 F H 02/02/18 13:00 Pulse 92 H 02/02/18 13:00 Resp 16 02/02/18 13:00 BP 132/81 02/02/18 13:00 Pulse Ox 96 02/02/18 13:00 - Labs Result Diagrams: 02/02/18 06:15 02/02/18 06:15 Labs: Laboratory Results - last 24 hr 02/02/18 02/02/18 02/02/18 06:15 06:15 06:15 WBC 6.9 RBC 4.46 Hgb 14.0 Hct 41.5 MCV 93.0 MCH 31.4 MCHC 33.7 RDW 13.5 Plt Count 228 MPV 10.3 Gran % 77.9 H Lymph % (Auto) 15.0 L [place] % (Auto) 5.6 Eos % (Auto) 1.2 L Baso % (Auto) 0.3 Gran # 5.41 Lymph # (Auto) 1.0 L [place] # (Auto) 0.4 Eos # (Auto) 0.1 Baso # (Auto) 0.02 pO2 19 L VBG pH 7.43 VBG pCO2 48.0 VBG HCO3 31.9 H VBG Total CO2 33.4 H VBG O2 Sat (Calc) 32.0 L VBG Base Excess 6.4 H VBG Potassium 3.8 Sodium 139.0 140 Chloride 100.0 99 Glucose 118 H Lactate 2.4 H FiO2 21.0 Potassium 3.9 Carbon Dioxide 30 Anion Gap 14 BUN 10 Creatinine 0.7 Est GFR ( Amer) > 60 Est GFR (Non-Af Amer) > 60 Random Glucose 117 H Calcium 9.3 Magnesium 1.9 Total Bilirubin 0.2 AST 38 H D ALT 23 Alkaline Phosphatase 121 Troponin I < 0.01 Total Protein 8.5 H Albumin 4.3 Globulin 4.2 Albumin/Globulin Ratio 1.0 L Lipase 127 Beta HCG, Quant Venous Blood Potassium 3.8 Urine Color Urine Appearance Urine pH Ur Specific Comfort Urine Protein Urine Glucose (UA) Urine Ketones Urine Blood Urine Nitrate Urine Bilirubin Urine Urobilinogen Ur Leukocyte Esterase Urine RBC Urine WBC Urine Bacteria Urine HCG, Qual 02/02/18 02/02/18 02/02/18 06:15 07:25 09:15 WBC RBC Hgb Hct MCV MCH MCHC RDW Plt Count MPV Gran % Lymph % (Auto) [place] % (Auto) Eos % (Auto) Baso % (Auto) Gran # Lymph # (Auto) [place] # (Auto) Eos # (Auto) Baso # (Auto) pO2 159 H VBG pH 7.44 H VBG pCO2 36.0 L VBG HCO3 24.5 VBG Total CO2 25.6 VBG O2 Sat (Calc) 98.7 H VBG Base Excess 0.6 VBG Potassium 3.2 L Sodium 138.0 Chloride 107.0 Glucose 107 H Lactate 0.6 L FiO2 21.0 Potassium Carbon Dioxide Anion Gap BUN Creatinine Est GFR ( Amer) Est GFR (Non-Af Amer) Random Glucose Calcium Magnesium Total Bilirubin AST ALT Alkaline Phosphatase Troponin I Total Protein Albumin Globulin Albumin/Globulin Ratio Lipase Beta HCG, Quant < 2.39 Venous Blood Potassium 3.2 L Urine Color Light red Urine Appearance Cloudy Urine pH >=9.0 Ur Specific Comfort 1.015 Urine Protein 100 H Urine Glucose (UA) Negative Urine Ketones 40 H Urine Blood Large H Urine Nitrate Negative Urine Bilirubin Small H Urine Urobilinogen 2.0 H Ur Leukocyte Esterase Trace H Urine RBC Tntc Urine WBC TEST NOT PERFORMED Urine Bacteria Large Urine HCG, Qual Negative Assessment & Plan - Assessment and Plan (Free Text) Assessment: 47 year old female with past medical history of appendectomy, fibroids, and ovarian cysts presenting with worsening R sided flank pain x 1 week with associated fever (Tmax 103) x 2 days. Code sepsis called in the ED at 11:22 AM, temperature of 103 on admission with lactate of 2.6. Plan: R flank pain with associated nausea/vomiting -code sepsis called in ED: pt febrile on admission 103, lactate 2.6 -repeat lactate 0.6 -no leukocytosis -lipase wnl -AST/ALT: 38/23 -CVA positive R -UA: large blood, trace LE, + protein, ketones -given reglan, morphine 4 mg x1, tylenol, vanc/zosyn in the ED -CXR: no acute findings -CT abdomen/pelvis: mild R hydronephrosis and mild hydroureter w/o evidence of renal calculus; unchanged from prior exam, however there is new mild perinephric fat infiltration; enlarged leiomyomatous uterus, new L ovarian cyst measuring 2.9 cm; recommend f/u pelvis ultrasound -f/u UCx -UDS -BCx -morphine 2q6h prn for pain -zofran 4q4 prn for nausea -tylenol q6 prn for fever -c/w zosyn -IVF @ 125 cc/hr -liquid diet -ID consult on board PPx, Diet, Disposition -Diet: liquid diet -Dispo: continue to monitor, advance diet as tolerated Case discussed with Dr. Emelina Ring DO, PGY-1 <Shun Tarango - Last Filed: 02/03/18 07:05> Results - Vital Signs Recent Vital Signs: Last Vital Signs Temp 100.3 F H 02/03/18 06:50 Pulse 87 02/03/18 00:00 Resp 18 02/03/18 04:00 BP 138/83 02/03/18 00:00 Pulse Ox 96 02/03/18 00:00 - Labs Result Diagrams: 02/02/18 06:15 02/02/18 06:15 Labs: Laboratory Results - last 24 hr 02/02/18 02/02/18 02/02/18 06:15 06:15 06:15 pO2 19 L VBG pH 7.43 VBG pCO2 48.0 VBG HCO3 31.9 H VBG Total CO2 33.4 H VBG O2 Sat (Calc) 32.0 L VBG Base Excess 6.4 H VBG Potassium 3.8 Sodium 139.0 140 Chloride 100.0 99 Glucose 118 H Lactate 2.4 H FiO2 21.0 Potassium 3.9 Carbon Dioxide 30 Anion Gap 14 BUN 10 Creatinine 0.7 Est GFR ( Amer) > 60 Est GFR (Non-Af Amer) > 60 Random Glucose 117 H Calcium 9.3 Magnesium 1.9 Total Bilirubin 0.2 AST 38 H D ALT 23 Alkaline Phosphatase 121 Troponin I < 0.01 Total Protein 8.5 H Albumin 4.3 Globulin 4.2 Albumin/Globulin Ratio 1.0 L Lipase 127 Beta HCG, Quant < 2.39 Venous Blood Potassium 3.8 Urine Color Urine Appearance Urine pH Ur Specific Comfort Urine Protein Urine Glucose (UA) Urine Ketones Urine Blood Urine Nitrate Urine Bilirubin Urine Urobilinogen Ur Leukocyte Esterase Urine RBC Urine WBC Urine Bacteria Urine HCG, Qual Salicylates Urine Opiates Screen Urine Methadone Screen Ur Barbiturates Screen Ur Phencyclidine Scrn Ur Amphetamines Screen U Benzodiazepines Scrn U Oth Cocaine Metabols U Cannabinoids Screen Alcohol, Quantitative 02/02/18 02/02/18 02/02/18 07:25 09:15 16:06 pO2 159 H VBG pH 7.44 H VBG pCO2 36.0 L VBG HCO3 24.5 VBG Total CO2 25.6 VBG O2 Sat (Calc) 98.7 H VBG Base Excess 0.6 VBG Potassium 3.2 L Sodium 138.0 Chloride 107.0 Glucose 107 H Lactate 0.6 L FiO2 21.0 Potassium Carbon Dioxide Anion Gap BUN Creatinine Est GFR ( Amer) Est GFR (Non-Af Amer) Random Glucose Calcium Magnesium Total Bilirubin AST ALT Alkaline Phosphatase Troponin I Total Protein Albumin Globulin Albumin/Globulin Ratio Lipase Beta HCG, Quant Venous Blood Potassium 3.2 L Urine Color Light red Urine Appearance Cloudy Urine pH >=9.0 Ur Specific Comfort 1.015 Urine Protein 100 H Urine Glucose (UA) Negative Urine Ketones 40 H Urine Blood Large H Urine Nitrate Negative Urine Bilirubin Small H Urine Urobilinogen 2.0 H Ur Leukocyte Esterase Trace H Urine RBC Tntc Urine WBC TEST NOT PERFORMED Urine Bacteria Large Urine HCG, Qual Negative Salicylates < 1 L Urine Opiates Screen Urine Methadone Screen Ur Barbiturates Screen Ur Phencyclidine Scrn Ur Amphetamines Screen U Benzodiazepines Scrn U Oth Cocaine Metabols U Cannabinoids Screen Alcohol, Quantitative 02/02/18 02/02/18 16:06 16:59 pO2 VBG pH VBG pCO2 VBG HCO3 VBG Total CO2 VBG O2 Sat (Calc) VBG Base Excess VBG Potassium Sodium Chloride Glucose Lactate FiO2 Potassium Carbon Dioxide Anion Gap BUN Creatinine Est GFR ( Amer) Est GFR (Non-Af Amer) Random Glucose Calcium Magnesium Total Bilirubin AST ALT Alkaline Phosphatase Troponin I Total Protein Albumin Globulin Albumin/Globulin Ratio Lipase Beta HCG, Quant Venous Blood Potassium Urine Color Urine Appearance Urine pH Ur Specific Comfort Urine Protein Urine Glucose (UA) Urine Ketones Urine Blood Urine Nitrate Urine Bilirubin Urine Urobilinogen Ur Leukocyte Esterase Urine RBC Urine WBC Urine Bacteria Urine HCG, Qual Salicylates Urine Opiates Screen Positive H Urine Methadone Screen Negative Ur Barbiturates Screen Negative Ur Phencyclidine Scrn Negative Ur Amphetamines Screen Negative U Benzodiazepines Scrn Negative U Oth Cocaine Metabols Negative U Cannabinoids Screen Positive H Alcohol, Quantitative < 10 Attending/Attestation - Attestation I have personally seen and examined this patient.: Yes I have fully participated in the care of the patient.: Yes I have reviewed all pertinent clinical information: Yes Notes (Text): 02/02/18 47 year old female with past medical history of fibroids, ovarian cyst and substance abuse who presented with complaint of fever, right sided flank pain and intractable nausea/vomiting. She was found to have mild right hydronephrosis and mild hydroureter without evidence of renal calculus with mild perinephric fat infiltration on CT scan. Continue with IV fluids, antiemetics and antibiotics while awaiting cultures. ID evaluation is also requested. CT scan also showed left ovarian cyst and enlarged leiomyatous uterus. Recommended outpatient gynecology follow up. Urine drug screen ordered given history of substance (cocaine) abuse. Shun Tarango MD Hospitalist.
[2018-02-02 17:54] LABS: BARBITURATES, UR NEGATIVE (NEGATIVE); BENZODIAZEPINES, UR NEGATIVE (NEGATIVE); OPIATES, UR POSITIVE (NEGATIVE); PHENCYCLIDINE, UR NEGATIVE (NEGATIVE)
[2018-02-02] MEDS ORDERED: Piperacillin/Tazobact 3.375 gm 100 ML IVPB SCH (18:00)
--- NOTE | 2018-02-02 19:30 | CARD ---
APPROVED REPORT Date of service: 02/02/2018 EKG Measurement Heart [id number] <Conclusion> Normal sinus rhythm Normal Electrocardiogram
[2018-02-03] MEDS: Piperacillin/Tazobact 3.375 gm 100 ML IVPB SCH ×3 (00:35→11:37)
[2018-02-03] MEDS: Morphine 2 mg/ml ISec IVP PRN ×2 (01:32→06:50)
[2018-02-03] MEDS: Sodium Chloride 0.9% 1,000 ML IV SCH ×3 (06:26→23:57)
--- NOTE | 2018-02-03 07:25 | CP.PCM.PN ---
<Ousmane Ring - Last Filed: 02/03/18 15:40> Subjective - Date & Time of Evaluation Date of Evaluation: 02/03/18 Time of Evaluation: 07:25 - Subjective Subjective: PGY-1 Medicine Progress Note for Dr. Tarango's service Patient seen and examined at bedside this AM. No acute overnight events reported. Patient continues to endorse R sided flank/abdominal pain, nausea, and 1 new episode of vomiting overnight. Also complains of L sided headache primarily localized to temporal region for the past week. Denies hx of migraine. 12 pt ROS otherwise negative. Objective - Vital Signs/Intake and Output Vital Signs (last 24 hours): Temp Pulse Resp BP Pulse Ox 100.3 F H 87 18 138/83 96 02/03/18 06:50 02/03/18 00:00 02/03/18 04:00 02/03/18 00:00 02/03/18 00:00 Intake and Output: 02/03/18 02/03/18 06:59 18:59 Intake Total 640 Output Total 3 Balance 637 - Medications Medications: Current Medications Acetaminophen (Tylenol 325mg Tab) 650 mg PO Q6H PRN PRN Reason: Fever >100.4 F Last Admin: 02/03/18 06:50 Dose: 650 mg Piperacillin Sod/Tazobactam Sod (Zosyn 3.375 In Ns 100ml) 100 mls @ 200 mls/hr IVPB Q6H BECCA; Protocol Last Admin: 02/03/18 06:26 Dose: 200 mls/hr Sodium Chloride (Sodium Chloride 0.9%) 1,000 mls @ 125 mls/hr IV .Q8H BECCA Last Admin: 02/03/18 06:26 Dose: 125 mls/hr Morphine Sulfate (Morphine) 2 mg IVP Q6H PRN PRN Reason: Pain, severe (8-10) Last Admin: 02/03/18 06:50 Dose: 2 mg Ondansetron HCl (Zofran Inj) 4 mg IVP Q4H PRN PRN Reason: Nausea/Vomiting Last Admin: 02/02/18 20:30 Dose: 4 mg - Labs Labs: 02/02/18 06:15 02/02/18 06:15 - Constitutional Appears: Non-toxic, No Acute Distress - Head Exam Head Exam: ATRAUMATIC, NORMAL INSPECTION, NORMOCEPHALIC - Eye Exam Eye Exam: EOMI, Normal appearance Pupil Exam: NORMAL ACCOMODATION - ENT Exam ENT Exam: Mucous Membranes Moist, Normal Exam, Normal External Ear Exam - Neck Exam Neck Exam: Full ROM, Normal Inspection - Respiratory Exam Respiratory Exam: Clear to Ausculation Bilateral, NORMAL BREATHING PATTERN. absent: Accessory Muscle Use, Rales, Rhonchi, Wheezes, Respiratory Distress, Stridor - Cardiovascular Exam Cardiovascular Exam: Tachycardia, +S1, +S2 - GI/Abdominal Exam GI & Abdominal Exam: Soft, Tenderness (TTP RUQ), Normal Bowel Sounds. absent: Distended, Firm, Guarding, Rigid, Organomegaly, Rebound - Extremities Exam Extremities Exam: Full ROM, Normal Capillary Refill, Normal Inspection. absent: Calf Tenderness, Joint Swelling, Pedal Edema - Back Exam Back Exam: CVA tenderness (R), NORMAL INSPECTION - Neurological Exam Neurological Exam: Alert, Awake, Oriented x3 - Psychiatric Exam Psychiatric exam: Normal Affect, Normal Mood - Skin Skin Exam: Dry, Intact, Normal Color, Warm Assessment and Plan - Assessment and Plan (Free Text) Assessment: 47 year old female with past medical history of appendectomy, fibroids, and ovarian cysts presenting with worsening R sided flank pain x 1 week with associated fever (Tmax 103) x 2 days. Code sepsis called in the ED at 11:22 AM, temperature of 103 on admission with lactate of 2.6, repeat lactate 0.6. Plan: R flank pain with associated nausea/vomiting -code sepsis called in ED: pt febrile on admission 103, lactate 2.6 -repeat lactate 0.6 -no leukocytosis -lipase wnl -AST/ALT: 38/23 -CVA positive R -UA: large blood, trace LE, + protein, ketones -given reglan, morphine 4 mg x1, tylenol, vanc/zosyn in the ED -CXR: no acute findings -CT abdomen/pelvis: mild R hydronephrosis and mild hydroureter w/o evidence of renal calculus; unchanged from prior exam, however there is new mild perinephric fat infiltration; enlarged leiomyomatous uterus, new L ovarian cyst measuring 2.9 cm; recommend f/u pelvis ultrasound -BCx prelim: gram negative kimmie x1 -Urine Cx prelim: gram negative kimmie x1 -UDS: positive cannabinoids, opiates -morphine 2q6h prn for pain -zofran 4q4 prn for nausea -tylenol q6 prn for fever and headache -c/w zosyn -IVF @ 125 cc/hr -liquid diet -ID recs (Dr. Montaño) appreciated -will start on meropenem PPx, Diet, Disposition -Diet: liquid diet -Dispo: continue to monitor, advance diet as tolerated Case discussed with Dr. Emelina Ring DO, PGY-1 <Shun Tarango - Last Filed: 02/03/18 15:50> Objective - Vital Signs/Intake and Output Vital Signs (last 24 hours): Temp Pulse Resp BP Pulse Ox 100.3 F H 93 H 20 134/85 99 02/03/18 08:07 02/03/18 08:07 02/03/18 08:07 02/03/18 08:07 02/03/18 08:07 Intake and Output: 02/03/18 02/03/18 06:59 18:59 Intake Total 2780 Output Total 3 Balance 2777 - Medications Medications: Current Medications Acetaminophen (Tylenol 325mg Tab) 650 mg PO Q6H PRN PRN Reason: Fever >100.4 F Sodium Chloride (Sodium Chloride 0.9%) 1,000 mls @ 125 mls/hr IV .Q8H BECCA Last Admin: 02/03/18 06:26 Dose: 125 mls/hr Meropenem (Merrem Iv 1 Gm Premix) 1 gm in 50 mls @ 100 mls/hr IVPB Q8 BECCA; Protocol Last Admin: 02/03/18 13:50 Dose: 100 mls/hr Morphine Sulfate (Morphine) 2 mg IVP Q6H PRN PRN Reason: Pain, severe (8-10) Last Admin: 02/03/18 13:51 Dose: 2 mg Ondansetron HCl (Zofran Inj) 4 mg IVP Q4H PRN PRN Reason: Nausea/Vomiting Last Admin: 02/03/18 13:50 Dose: 4 mg - Labs Labs: 02/03/18 08:00 02/03/18 08:00 Attending/Attestation - Attestation I have personally seen and examined this patient.: Yes I have fully participated in the care of the patient.: Yes I have reviewed all pertinent clinical information, including history, physical exam and plan: Yes Notes (Text): 02/03/18 15:48 47 year old female with past medical history of fibroids, ovarian cyst and substance abuse who presented with complaint of fever, right sided flank pain and intractable nausea/vomiting. She was found to have mild right hydronephrosis and mild hydroureter without evidence of renal calculus with mild perinephric fat infiltration on CT scan. BCx/UCx is growing gram negative rods. ID evaluation was requested who switched antibiotics to meropenem. CT scan also showed left ovarian cyst and enlarged leiomyatous uterus. Recommended outpatient gynecology follow up. Patient is complaining of headaches; CT head is ordered. Urine drug screen was positive for marijuana and opiates. Patient was counselled on risks of continued substance abuse. Will replete and repeat potassium. Shun Tarango MD Hospitalist.
[2018-02-03 08:51] LABS: BASO # 0.02 K/mm3 (0.0-2.0); BASO % 0.2 % (0.0-3.0); EOS # 0.1 (0.0-0.7); EOS % 0.6 % (1.5-5.0); GRAN # 6.67 (1.4-6.5); GRAN % 69.2 % (50.0-68.0); HEMOGLOBIN 11.2 g/dL (12.0-16.0); LYMPH # 1.9 (1.2-3.4); LYMPH % 20.1 % (22.0-35.0); MEAN CELL VOLUME 93.4 fl (80.0-105.0); MEAN CORPUSCULAR HEMOGLOBIN 30.8 pg (25.0-35.0); MEAN CORPUSCULAR HGB CONC 32.9 g/dl (31.0-37.0); MEAN PLATELET VOLUME 10.6 fl (7.0-11.0); MONO % 9.9 % (1.0-6.0); RBC 3.64 10^6/uL (3.5-6.1); RED CELL DISTRIBUTION WIDTH 13.5 % (11.5-14.5); WHITE BLOOD COUNT 9.7 10^3/uL (4.5-11.0)
[2018-02-03 08:58] LABS: ALBUMIN 3.1 g/dL (3.0-4.8); ALT/SGPT 37 U/L (7-56); AST/SGOT 48 U/L (14-36); BLOOD UREA NITROGEN 6 mg/dL (7-21); CALCIUM 7.5 mg/dL (8.4-10.5); GFR NON-AFRICAN AMERICAN > 60
[2018-02-03] MEDS ORDERED: Potassium Chloride 20 mEq ER Tab PO ONE (10:44)
--- NOTE | 2018-02-03 12:17 | CP.PCM.PCO ---
Physician Communication Note - Physician Communication Note Physician Communication Note: patient not in room-will see pt berta;GNB in blood with pyelo-start Merrem
--- NOTE | 2018-02-03 13:11 | CT ---
Date of service: 02/03/2018 PROCEDURE: CT HEAD WITHOUT CONTRAST. HISTORY: L sided head pain x 1-2 weeks COMPARISON: Noncontrast head CT performed 06/27/15 TECHNIQUE: Axial computed tomography images were obtained through the head/brain without intravenous contrast. Radiation dose: Total exam DLP = 803.01 mGy-cm. This CT exam was performed using one or more of the following dose reduction techniques: Automated exposure control, adjustment of the mA and/or kV according to patient size, and/or use of iterative reconstruction technique. FINDINGS: HEMORRHAGE: No intracranial hemorrhage. BRAIN: No mass effect or edema. The buitrago-white matter differentiation appears intact. Please note that MRI with diffusion imaging is more sensitive in the detection of acute ischemic event. VENTRICLES: No hydrocephalus. CALVARIUM: Unremarkable. PARANASAL SINUSES: Unremarkable as visualized. No significant inflammatory changes. MASTOID AIR CELLS: Unremarkable as visualized. No inflammatory changes. OTHER FINDINGS: None. IMPRESSION: No acute intracranial pathology identified.
[2018-02-03] MEDS: Meropenem IV 1 gm in NS 1 GM/50 ML BAG IVPB SCH ×2 (13:50→21:07)
[2018-02-03] MEDS: Morphine 4 mg/ml ISec IVP PRN ×2 (13:51→19:30)
[2018-02-03] MEDS ORDERED: Oxycodone/Acetaminophen 5/325 mg Tab PO ONE ×2 (19:01→23:45)
[2018-02-03] MEDS: guaiFENesin 100 mg/5 ml Syrup UD PO PRN (21:07)
[2018-02-03] MEDS ORDERED: Oxycodone/Acetaminophen 5/325 mg Tab PO PRN (23:47)
[2018-02-04] MEDS: guaiFENesin 100 mg/5 ml Syrup UD PO PRN ×2 (03:50→08:42)
[2018-02-04] MEDS: Morphine 4 mg/ml ISec IVP PRN ×3 (03:50→17:21)
[2018-02-04] MEDS: Sodium Chloride 0.9% 1,000 ML IV SCH (04:00)
[2018-02-04] MEDS: Meropenem IV 1 gm in NS 1 GM/50 ML BAG IVPB SCH ×3 (05:52→21:52)
--- NOTE | 2018-02-04 07:30 | CP.PCM.PN ---
<Ousmane Ring - Last Filed: 02/04/18 18:46> Subjective - Date & Time of Evaluation Date of Evaluation: 02/04/18 Time of Evaluation: 07:30 - Subjective Subjective: PGY-1 Medicine Progress Note for Dr. Gaston's service Patient seen and examined at bedside this AM. No acute overnight events reported. Patient continues to endorse R flank/abdominal pain, L sided headache. Patient tolerating liquid diet well with no active vomiting/diarrhea. 12 pt ROS otherwise negative at this time. Objective - Vital Signs/Intake and Output Vital Signs (last 24 hours): Temp Pulse Resp BP Pulse Ox 98.0 F 83 19 149/94 H 98 02/03/18 17:15 02/04/18 06:00 02/03/18 17:15 02/03/18 17:15 02/03/18 17:15 Intake and Output: 02/04/18 02/04/18 06:59 18:59 Intake Total 1740 Balance 1740 - Medications Medications: Current Medications Acetaminophen (Tylenol 325mg Tab) 650 mg PO Q6H PRN PRN Reason: Fever >100.4 F Guaifenesin (Robitussin) 100 mg PO Q4H PRN PRN Reason: Cough Last Admin: 02/04/18 03:50 Dose: 100 mg Sodium Chloride (Sodium Chloride 0.9%) 1,000 mls @ 125 mls/hr IV .Q8H BECCA Last Admin: 02/04/18 04:00 Dose: Not Given Meropenem (Merrem Iv 1 Gm Premix) 1 gm in 50 mls @ 100 mls/hr IVPB Q8 BECCA; Protocol Last Admin: 02/04/18 05:52 Dose: 100 mls/hr Morphine Sulfate (Morphine) 2 mg IVP Q6H PRN PRN Reason: Pain, severe (8-10) Last Admin: 02/04/18 03:50 Dose: 2 mg Ondansetron HCl (Zofran Inj) 4 mg IVP Q4H PRN PRN Reason: Nausea/Vomiting Last Admin: 02/03/18 23:38 Dose: 4 mg - Labs Labs: 02/03/18 08:00 02/03/18 08:00 - Constitutional Appears: Non-toxic, No Acute Distress - Head Exam Head Exam: ATRAUMATIC, NORMAL INSPECTION, NORMOCEPHALIC - Eye Exam Eye Exam: EOMI, Normal appearance Pupil Exam: NORMAL ACCOMODATION - ENT Exam ENT Exam: Mucous Membranes Moist, Normal Exam - Neck Exam Neck Exam: Full ROM, Normal Inspection - Respiratory Exam Respiratory Exam: Clear to Ausculation Bilateral, NORMAL BREATHING PATTERN. absent: Accessory Muscle Use, Rales, Rhonchi, Wheezes, Respiratory Distress, Stridor - Cardiovascular Exam Cardiovascular Exam: REGULAR RHYTHM, +S1, +S2 - GI/Abdominal Exam GI & Abdominal Exam: Soft, Tenderness Additional comments: TTP RUQ, RLQ - Extremities Exam Extremities Exam: Normal Capillary Refill, Normal Inspection. absent: Calf Tenderness, Joint Swelling, Pedal Edema - Back Exam Back Exam: CVA tenderness (R), NORMAL INSPECTION - Neurological Exam Neurological Exam: Alert, Awake, Oriented x3 - Psychiatric Exam Psychiatric exam: Normal Affect, Normal Mood - Skin Skin Exam: Dry, Intact, Normal Color, Warm Assessment and Plan - Assessment and Plan (Free Text) Assessment: 47 year old female with past medical history of fibroids, ovarian cyst and substance abuse who presented with complaint of fever, right sided flank pain and intractable nausea/vomiting. She was found to have mild right hydronephrosis and mild hydroureter without evidence of renal calculus with mild perinephric fat infiltration on CT scan. BCx/UCx is growing gram negative rods. ID evaluation was requested who switched antibiotics to meropenem. Plan: Sepsis 2/2 gram negative bacilli bacteremia 2/2 R pyelonephritis -code sepsis called in ED: pt febrile on admission 103, lactate 2.6 -repeat lactate 0.6 -no leukocytosis -lipase wnl -AST/ALT: 56/51 -UA: large blood, trace LE, + protein, ketones -given reglan, morphine 4 mg x1, tylenol, vanc/zosyn in the ED -CXR: no acute findings -CT abdomen/pelvis: mild R hydronephrosis and mild hydroureter w/o evidence of renal calculus; unchanged from prior exam, however there is new mild perinephric fat infiltration; enlarged leiomyomatous uterus, new L ovarian cyst measuring 2.9 cm; recommend f/u pelvis ultrasound -pelvic ultrasound: 1.9 x 1.7 x 1.7 cm L ovarian follicle/cyst -repeat CXR (02/04): patchy R sided opacities involving mid-lower lung, suspicious for pneumonia -BCx prelim: gram negative kimmie x1 -Urine Cx: e coli -UDS: positive cannabinoids, opiates -morphine 2q6h prn for pain -zofran 4q4 prn for nausea -tylenol q6 prn for fever and headache -c/w zosyn -IVF @ 125 cc/hr -liquid diet -ID recs (Dr. Montaño) appreciated -c/w meropenem New onset cough -f/u CXR -Mucinex LA 600 mg BID PPx, Diet, Disposition -Diet: liquid diet -Dispo: continue to monitor, advance diet as tolerated Case discussed with Dr. Alek Ring DO, PGY-1 <Promise Gaston R - Last Filed: 02/05/18 14:34> Objective - Vital Signs/Intake and Output Vital Signs (last 24 hours): Temp Pulse Resp BP Pulse Ox 98 F 71 20 147/88 98 02/05/18 08:21 02/05/18 10:00 02/05/18 08:21 02/05/18 08:21 02/05/18 08:21 - Medications Medications: Current Medications Acetaminophen (Tylenol 325mg Tab) 650 mg PO Q6H PRN PRN Reason: Fever >100.4 F Last Admin: 02/04/18 17:37 Dose: 650 mg Docusate Sodium (Colace) 100 mg PO BID [facility] Last Admin: 02/05/18 10:20 Dose: 100 mg Guaifenesin (Mucinex La) 600 mg PO BID BECCA Last Admin: 02/05/18 10:19 Dose: 600 mg Guaifenesin (Robitussin) 100 mg PO Q4H PRN PRN Reason: Cough Last Admin: 02/05/18 03:16 Dose: 100 mg Heparin Sodium (Porcine) (Heparin) 5,000 units SC Q8 BECCA; Protocol Last Admin: 02/05/18 14:08 Dose: 5,000 units Ceftriaxone Sodium (Rocephin 2 Gm Ivpb) 2 gm in 100 mls @ 100 mls/hr IVPB DAILY BECCA; Protocol Last Admin: 02/05/18 10:16 Dose: 100 mls/hr Sodium Chloride (Sodium Chloride 0.9%) 1,000 mls @ 100 mls/hr IV .Q10H BECCA Last Admin: 02/05/18 12:07 Dose: 100 mls/hr Ketorolac Tromethamine (Toradol) 15 mg IVP DAILY PRN PRN Reason: Pain, moderate (4-7) Morphine Sulfate (Morphine) 2 mg IVP Q6H PRN PRN Reason: Pain, severe (8-10) Stop: 02/06/18 13:36 Last Admin: 02/05/18 14:07 Dose: 2 mg Ondansetron HCl (Zofran Inj) 4 mg IVP Q4H PRN PRN Reason: Nausea/Vomiting Last Admin: 02/05/18 10:19 Dose: 4 mg - Labs Labs: 02/05/18 05:30 02/05/18 05:30 Attending/Attestation - Attestation I have personally seen and examined this patient.: Yes I have fully participated in the care of the patient.: Yes I have reviewed all pertinent clinical information, including history, physical exam and plan: Yes Notes (Text): Patient seen and examined by me with resident at 8:45AM on 02/04/18. Case including HPI, physical exam, and assessment and plan discussed with resident. Agree with above with following additions/corrections. Patient is a 47-year-old female with past medical history significant for fibroids, ovarian cysts, alcohol abuse, and drug abuse that presented to the emergency room with right flank pain. Patient states that she is not feeling great. States she is still have right flank pain. Patient states pain medications are helping a little. Radiates to right upper quadrant. Pain is constant. Patient also complains of left sided throbbing headache. States this has been going on for more than a week. No change in vision. No associated dizziness or lightheadedness. No nausea or vomiting. No chest pain or shortness of breath. No fevers or chills today. No dysuria. Patient does complain of a cough. Physical exam: General: Awake and alert sitting up in bed in no acute distress. HEENT: Normocephalic, atraumatic. Extraocular muscles intact, pupils equal and reactive, no scleral icterus. Oropharynx is pink and moist. Neck is supple Cardiovascular: Regular rhythm. Normal S1 and S2. No murmurs, rubs, or gallops appreciated Pulmonary: Normal respiratory effort. No rhonchi, rales, or wheezing appreciated. Gastrointestinal: Soft, nondistended. Mild right upper quadrant tenderness. Positive bowel sounds all 4 quadrants. No guarding. Musculoskeletal: Moves all extremities. No calf tenderness. no edema appreciated. Positive right sided CVA tenderness. Central nervous system: AAOx3 Dermatologic: Skin warm and dry. Assessment and plan: Patient is a 47-year-old female with past medical history significant for fibroids, ovarian cysts, alcohol abuse, and drug abuse that presented to the emergency room with right flank pain. 1. Sepsis secondary to UTI and pyelonephritis. Bacteremia. Sepsis resolved. No leukocytosis. Patient is afebrile. CT abdomen and pelvis per radiologist showed mild right hydronephrosis with mild hydroureter without evidence of renal calculus, this is unchanged from prior exam however there is new mild perinephric fat infiltration; enlarged leiomyomatous uterus; new left ovarian cysts measuring roughly 2.9 cm. Follow-up pelvic ultrasound. ID following, recommendations appreciated. Urine culture positive for Escherichia coli. One of 2 blood cultures positive for gram-negative rods. Continue meropenem. 2. Cough. Placed on Mucinex. Follow-up chest x-ray. 3. Headache. Head CT per radiologist showed no acute intracranial pathology identified. Will give dose of Fioricet. 4. Hypokalemia. Replete potassium. Continue to monitor. 5. DVT prophylaxis. Heparin Case discussed in detail with the patient regarding current diagnosis and treatment plan. All questions answered.
[2018-02-04] MEDS ORDERED: Potassium Chloride 20 mEq ER Tab PO ONE (08:33)
[2018-02-04 08:49] LABS: BASO # 0.02 K/mm3 (0.0-2.0); BASO % 0.2 % (0.0-3.0); EOS # 0.3 (0.0-0.7); EOS % 2.9 % (1.5-5.0); GRAN # 7.46 (1.4-6.5); GRAN % 68.1 % (50.0-68.0); HEMOGLOBIN 12.7 g/dL (12.0-16.0); LYMPH # 2.1 (1.2-3.4); LYMPH % 19.5 % (22.0-35.0); MEAN CELL VOLUME 92.3 fl (80.0-105.0); MEAN CORPUSCULAR HEMOGLOBIN 31.5 pg (25.0-35.0); MEAN CORPUSCULAR HGB CONC 34.1 g/dl (31.0-37.0); MONO % 9.3 % (1.0-6.0); RBC 4.03 10^6/uL (3.5-6.1); RED CELL DISTRIBUTION WIDTH 13.5 % (11.5-14.5)
[2018-02-04 09:14] LABS: ALB/GLOB RATIO 0.9 (1.1-1.8); ALBUMIN 3.4 g/dL (3.0-4.8); ALT/SGPT 51 U/L (7-56); AST/SGOT 56 U/L (14-36); BLOOD UREA NITROGEN 3 mg/dL (7-21); CALCIUM 7.9 mg/dL (8.4-10.5); GFR NON-AFRICAN AMERICAN > 60
[2018-02-04] MEDS: guaiFENesin 600 mg ER Tab PO SCH ×2 (10:18→17:24)
[2018-02-04] MEDS ORDERED: Apap-Butalbital-Caffeine 325-50-40mg Tab PO ONE (10:50)
--- NOTE | 2018-02-04 11:03 | CP.PCM.CON ---
History of Present Illness - History of Present Illness History of Present Illness: 47 year old female with PMH of appendectomy, uterine fibroids, ovarian cysts, history of polysubstance abuse, S/P tubal ligation came in to [facility] because of right flank and right upper quadrant for the past 2 days prior to admission associated with radiation to the groin area as well as fevers and chills. She was also having nausea and vomiting. CT A/P is showing right hydronephrosis and mild perinephric infiltration, and blood and urine cx are showing gram negative bacilli. She still has some nausea but has been afebrile this morning, still had fevers yesterday, still with flank pain but a little better, no vomiting, no diarrhea. Infectious diseases consult is requested to further evaluate and manage. Review of Systems - Review of Systems All systems: reviewed and no additional remarkable complaints except (as per HPI) Past Patient History - Infectious Disease Hx of Infectious Diseases: None - Past Social History Smoking Status: Former Smoker - CARDIAC Hx Cardiac Disorders: No - PULMONARY Hx Respiratory Disorders: No - NEUROLOGICAL Hx Neurological Disorder: No - HEENT Hx HEENT Problems: No - RENAL Hx Chronic Kidney Disease: No - ENDOCRINE/METABOLIC Hx Endocrine Disorders: No - HEMATOLOGICAL/ONCOLOGICAL Hx Blood Disorders: No - INTEGUMENTARY Hx Dermatological Problems: No - MUSCULOSKELETAL/RHEUMATOLOGICAL Hx Musculoskeletal Disorders: No Hx Falls: No - GASTROINTESTINAL Hx Gastrointestinal Disorders: Yes Other/Comment: Diverticulosis - GENITOURINARY/GYNECOLOGICAL Hx Genitourinary Disorders: Yes (Fibroids) - PSYCHIATRIC Hx Psychophysiologic Disorder: No Hx Substance Use: Yes - SURGICAL HISTORY Other/Comment: Ovarian sx/ovarian cyst - ANESTHESIA Hx Anesthesia: Yes Hx Anesthesia Reactions: No Hx Malignant Hyperthermia: No Meds Allergies/Adverse Reactions: Allergies Allergy/AdvReac Type Severity Reaction Status Date / Time seafood Allergy Severe ANAPHYLAXIS Uncoded 10/14/17 13:07 - Medications Medications: Current Medications Acetaminophen (Tylenol 325mg Tab) 650 mg PO Q6H PRN PRN Reason: Fever >100.4 F Last Admin: 02/02/18 13:22 Dose: 650 mg Piperacillin Sod/Tazobactam Sod (Zosyn 3.375 In Ns 100ml) 100 mls @ 200 mls/hr IVPB Q6H BECCA; Protocol Last Admin: 02/02/18 18:31 Dose: 200 mls/hr Sodium Chloride (Sodium Chloride 0.9%) 1,000 mls @ 125 mls/hr IV .Q8H BECCA Last Admin: 02/02/18 12:55 Dose: 125 mls/hr Morphine Sulfate (Morphine) 2 mg IVP Q6H PRN PRN Reason: Pain, severe (8-10) Last Admin: 02/02/18 12:45 Dose: 2 mg Ondansetron HCl (Zofran Inj) 4 mg IVP Q4H PRN PRN Reason: Nausea/Vomiting Last Admin: 02/02/18 12:40 Dose: 4 mg Physical Exam - Constitutional Appears: Chronically Ill - Head Exam Head Exam: NORMAL INSPECTION - Respiratory Exam Respiratory Exam: Decreased Breath Sounds - Cardiovascular Exam Cardiovascular Exam: +S1, +S2 - GI/Abdominal Exam GI & Abdominal Exam: Soft. absent: Tenderness Results - Vital Signs Recent Vital Signs: Last Vital Signs Temp 100.5 F H 02/02/18 18:45 Pulse 85 02/02/18 18:45 Resp 16 02/02/18 18:45 BP 148/84 02/02/18 18:45 Pulse Ox 97 02/02/18 18:45 - Labs Result Diagrams: 02/04/18 08:30 02/04/18 08:30 Labs: Laboratory Results - last 24 hr 02/02/18 02/02/18 02/02/18 06:15 06:15 06:15 WBC 6.9 RBC 4.46 Hgb 14.0 Hct 41.5 MCV 93.0 MCH 31.4 MCHC 33.7 RDW 13.5 Plt Count 228 MPV 10.3 Gran % 77.9 H Lymph % (Auto) 15.0 L [place] % (Auto) 5.6 Eos % (Auto) 1.2 L Baso % (Auto) 0.3 Gran # 5.41 Lymph # (Auto) 1.0 L [place] # (Auto) 0.4 Eos # (Auto) 0.1 Baso # (Auto) 0.02 pO2 19 L VBG pH 7.43 VBG pCO2 48.0 VBG HCO3 31.9 H VBG Total CO2 33.4 H VBG O2 Sat (Calc) 32.0 L VBG Base Excess 6.4 H VBG Potassium 3.8 Sodium 139.0 140 Chloride 100.0 99 Glucose 118 H Lactate 2.4 H FiO2 21.0 Potassium 3.9 Carbon Dioxide 30 Anion Gap 14 BUN 10 Creatinine 0.7 Est GFR ( Amer) > 60 Est GFR (Non-Af Amer) > 60 Random Glucose 117 H Calcium 9.3 Magnesium 1.9 Total Bilirubin 0.2 AST 38 H D ALT 23 Alkaline Phosphatase 121 Troponin I < 0.01 Total Protein 8.5 H Albumin 4.3 Globulin 4.2 Albumin/Globulin Ratio 1.0 L Lipase 127 Beta HCG, Quant Venous Blood Potassium 3.8 Urine Color Urine Appearance Urine pH Ur Specific [place] Urine Protein Urine Glucose (UA) Urine Ketones Urine Blood Urine Nitrate Urine Bilirubin Urine Urobilinogen Ur Leukocyte Esterase Urine RBC Urine WBC Urine Bacteria Urine HCG, Qual Salicylates Urine Opiates Screen Urine Methadone Screen Ur Barbiturates Screen Ur Phencyclidine Scrn Ur Amphetamines Screen U Benzodiazepines Scrn U Oth Cocaine Metabols U Cannabinoids Screen Alcohol, Quantitative 02/02/18 02/02/18 02/02/18 06:15 07:25 09:15 WBC RBC Hgb Hct MCV MCH MCHC RDW Plt Count MPV Gran % Lymph % (Auto) [place] % (Auto) Eos % (Auto) Baso % (Auto) Gran # Lymph # (Auto) [place] # (Auto) Eos # (Auto) Baso # (Auto) pO2 159 H VBG pH 7.44 H VBG pCO2 36.0 L VBG HCO3 24.5 VBG Total CO2 25.6 VBG O2 Sat (Calc) 98.7 H VBG Base Excess 0.6 VBG Potassium 3.2 L Sodium 138.0 Chloride 107.0 Glucose 107 H Lactate 0.6 L FiO2 21.0 Potassium Carbon Dioxide Anion Gap BUN Creatinine Est GFR ( Amer) Est GFR (Non-Af Amer) Random Glucose Calcium Magnesium Total Bilirubin AST ALT Alkaline Phosphatase Troponin I Total Protein Albumin Globulin Albumin/Globulin Ratio Lipase Beta HCG, Quant < 2.39 Venous Blood Potassium 3.2 L Urine Color Light red Urine Appearance Cloudy Urine pH >=9.0 Ur Specific [place] 1.015 Urine Protein 100 H Urine Glucose (UA) Negative Urine Ketones 40 H Urine Blood Large H Urine Nitrate Negative Urine Bilirubin Small H Urine Urobilinogen 2.0 H Ur Leukocyte Esterase Trace H Urine RBC Tntc Urine WBC TEST NOT PERFORMED Urine Bacteria Large Urine HCG, Qual Negative Salicylates Urine Opiates Screen Urine Methadone Screen Ur Barbiturates Screen Ur Phencyclidine Scrn Ur Amphetamines Screen U Benzodiazepines Scrn U Oth Cocaine Metabols U Cannabinoids Screen Alcohol, Quantitative 02/02/18 02/02/18 02/02/18 16:06 16:06 16:59 WBC RBC Hgb Hct MCV MCH MCHC RDW Plt Count MPV Gran % Lymph % (Auto) [place] % (Auto) Eos % (Auto) Baso % (Auto) Gran # Lymph # (Auto) [place] # (Auto) Eos # (Auto) Baso # (Auto) pO2 VBG pH VBG pCO2 VBG HCO3 VBG Total CO2 VBG O2 Sat (Calc) VBG Base Excess VBG Potassium Sodium Chloride Glucose Lactate FiO2 Potassium Carbon Dioxide Anion Gap BUN Creatinine Est GFR ( Amer) Est GFR (Non-Af Amer) Random Glucose Calcium Magnesium Total Bilirubin AST ALT Alkaline Phosphatase Troponin I Total Protein Albumin Globulin Albumin/Globulin Ratio Lipase Beta HCG, Quant Venous Blood Potassium Urine Color Urine Appearance Urine pH Ur Specific [place] Urine Protein Urine Glucose (UA) Urine Ketones Urine Blood Urine Nitrate Urine Bilirubin Urine Urobilinogen Ur Leukocyte Esterase Urine RBC Urine WBC Urine Bacteria Urine HCG, Qual Salicylates < 1 L Urine Opiates Screen Positive H Urine Methadone Screen Negative Ur Barbiturates Screen Negative Ur Phencyclidine Scrn Negative Ur Amphetamines Screen Negative U Benzodiazepines Scrn Negative U Oth Cocaine Metabols Negative U Cannabinoids Screen Positive H Alcohol, Quantitative < 10 Assessment & Plan - Assessment and Plan (Free Text) Plan: Assessment Sepsis due to gram negative bacilli bacteremia due to right sided pyelonephritis S/P appendectomy uterine fibroids ovarian cysts history of polysubstance abuse S/P tubal ligation Plan Started Merrem and will follow up final identification and sensitivities of the gram negative bacilli in the blood and urine follow up HIV test will monitor clinically
[2018-02-04] MEDS ORDERED: Potassium & Sodium Phosphate PO ONE (11:38)
--- NOTE | 2018-02-04 13:10 | RAD ---
HISTORY: intractable cough, fevers, r/o focal infection COMPARISON: Chest x-ray performed 02/02/18 TECHNIQUE: Chest, one view. FINDINGS: LUNGS: Interval development of patchy airspace opacities within the right mid to lower lung bates on the right suspicious for pneumonia. PLEURA: No significant pleural effusion identified. No definite pneumothorax . CARDIOVASCULAR: Heart size appears within normal limits. No significant atherosclerotic calcification present. OSSEOUS STRUCTURES: No acute osseous abnormality identified. VISUALIZED UPPER ABDOMEN: Unremarkable. OTHER FINDINGS: None. IMPRESSION: Patchy right-sided airspace opacities predominantly involving the right mid to lower lung field suspicious for pneumonia.
--- NOTE | 2018-02-04 16:38 | US ---
Date of service: 02/04/2018 HISTORY: hx fibroids, l ovarian cyst, abdominal pain COMPARISON: None available. TECHNIQUE: Transabdominal pelvic ultrasound. FINDINGS: UTERUS: Measures 8.5 x 4.6 x 4.5 cm. ENDOMETRIUM: Measures 6 mm in diameter. CERVIX: Cervix length measures approximately 3.7 cm. RIGHT OVARY: Not visualized. LEFT OVARY: Measures 3.2 x 2.6 x 2.7 cm. Blood flow is demonstrated. 1.9 x 1.7 x 1.7 cm follicle/cyst. FREE FLUID: No significant free fluid noted. OTHER FINDINGS: None. IMPRESSION: The right ovary is not visualized. 1.9 x 1.7 x 1.7 cm left ovarian follicle/cyst.
[2018-02-05] MEDS: Morphine 4 mg/ml ISec IVP PRN (00:37)
[2018-02-05] MEDS: guaiFENesin 100 mg/5 ml Syrup UD PO PRN ×2 (03:16→16:00)
[2018-02-05] MEDS: Meropenem IV 1 gm in NS 1 GM/50 ML BAG IVPB SCH (05:15)
[2018-02-05 07:11] LABS: BASO # 0.04 K/mm3 (0.0-2.0); BASO % 0.5 % (0.0-3.0); EOS # 0.5 (0.0-0.7); EOS % 6.2 % (1.5-5.0); GRAN # 4.57 (1.4-6.5); GRAN % 55.7 % (50.0-68.0); LYMPH # 2.1 (1.2-3.4); LYMPH % 25.8 % (22.0-35.0); MEAN CELL VOLUME 90.8 fl (80.0-105.0); MEAN CORPUSCULAR HEMOGLOBIN 30.6 pg (25.0-35.0); MEAN CORPUSCULAR HGB CONC 33.7 g/dl (31.0-37.0); MEAN PLATELET VOLUME 10.6 fl (7.0-11.0); MONO % 11.8 % (1.0-6.0); RBC 3.92 10^6/uL (3.5-6.1); RED CELL DISTRIBUTION WIDTH 13.6 % (11.5-14.5); WHITE BLOOD COUNT 8.2 10^3/uL (4.5-11.0)
[2018-02-05 07:20] LABS: ALBUMIN 3.2 g/dL (3.0-4.8); ALT/SGPT 42 U/L (7-56); AST/SGOT 49 U/L (14-36); BLOOD UREA NITROGEN 4 mg/dL (7-21); CALCIUM 8.6 mg/dL (8.4-10.5); GFR NON-AFRICAN AMERICAN > 60
[2018-02-05] MEDS: Morphine 2 mg/ml ISec IVP PRN ×3 (08:00→21:37)
[2018-02-05] MEDS: cefTRIAXone 2 GM IN NS 2 GM/100 ML BAG IVPB SCH (10:16)
[2018-02-05] MEDS: guaiFENesin 600 mg ER Tab PO SCH ×2 (10:19→17:12)
[2018-02-05] MEDS: Sodium Chloride 0.9% 1,000 ML IV SCH ×2 (12:07→22:35)
--- NOTE | 2018-02-05 12:33 | CP.PCM.PN ---
Subjective - Date & Time of Evaluation Date of Evaluation: 02/04/18 Time of Evaluation: 09:25 - Subjective Subjective: No fevers, but still with flank pain but less, but also with nausea. Objective - Vital Signs/Intake and Output Vital Signs (last 24 hours): Temp Pulse Resp BP Pulse Ox 98.1 F 88 20 159/90 H 94 L 02/04/18 07:48 02/04/18 07:48 02/04/18 07:48 02/04/18 07:48 02/04/18 07:48 Intake and Output: 02/04/18 02/04/18 06:59 18:59 Intake Total 1740 Balance 1740 - Medications Medications: Current Medications Acetaminophen (Tylenol 325mg Tab) 650 mg PO Q6H PRN PRN Reason: Fever >100.4 F Guaifenesin (Mucinex La) 600 mg PO BID [facility] Last Admin: 02/04/18 10:18 Dose: 600 mg Heparin Sodium (Porcine) (Heparin) 5,000 units SC Q8 [facility]; Protocol Meropenem (Merrem Iv 1 Gm Premix) 1 gm in 50 mls @ 100 mls/hr IVPB Q8 [facility]; Protocol Last Admin: 02/04/18 05:52 Dose: 100 mls/hr Morphine Sulfate (Morphine) 2 mg IVP Q6H PRN PRN Reason: Pain, severe (8-10) Last Admin: 02/04/18 09:59 Dose: 2 mg Ondansetron HCl (Zofran Inj) 4 mg IVP Q4H PRN PRN Reason: Nausea/Vomiting Last Admin: 02/04/18 10:38 Dose: 4 mg - Labs Labs: 02/04/18 08:30 02/04/18 08:30 - Constitutional Appears: Chronically Ill - Head Exam Head Exam: NORMAL INSPECTION - Neck Exam Neck Exam: absent: Meningismus - Respiratory Exam Respiratory Exam: Decreased Breath Sounds - Cardiovascular Exam Cardiovascular Exam: +S1, +S2 - GI/Abdominal Exam GI & Abdominal Exam: Soft. absent: Tenderness - Back Exam Back Exam: CVA tenderness (R) (mild) Assessment and Plan - Assessment and Plan (Free Text) Plan: Assessment Sepsis due to E. coli bacteremia due to right sided pyelonephritis S/P appendectomy uterine fibroids ovarian cysts history of polysubstance abuse S/P tubal ligation Plan can switch Merrem to Rocephin - will need 10-14 days of antibiotics HIV test is non-reactive should continue to monitor nausea and flank pain
--- NOTE | 2018-02-05 13:02 | CT ---
Date of service: 02/05/2018 PROCEDURE: CT Abdomen and Pelvis without intravenous contrast HISTORY: stone protocol COMPARISON: None. TECHNIQUE: Technique. Contrast dose: Radiation dose: Total exam DLP = 323.73 mGy-cm. This CT exam was performed using one or more of the following dose reduction techniques: Automated exposure control, adjustment of the mA and/or kV according to patient size, and/or use of iterative reconstruction technique. FINDINGS: LOWER THORAX: Unremarkable. LIVER: Unremarkable. No gross lesion or ductal dilatation. GALLBLADDER AND BILE DUCTS: Unremarkable. PANCREAS: Unremarkable. No gross lesion or ductal dilatation. SPLEEN: Unremarkable. ADRENALS: Unremarkable. No mass. KIDNEYS AND URETERS: There is minimal perinephric stranding on the right. This could be secondary to pyelonephritis. There is no evidence of urolithiasis. There is no hydronephrosis. VASCULATURE: Unremarkable. No aortic aneurysm. No aortic atherosclerotic calcification or mural plaque present. BOWEL: Unremarkable. No obstruction. No gross mural thickening. Suture lines are seen in the small bowel. APPENDIX: Unremarkable. Normal appendix. PERITONEUM: Unremarkable. No free fluid. No free air. LYMPH NODES: Unremarkable. No enlarged lymph nodes. BLADDER: Unremarkable. REPRODUCTIVE: Unremarkable. BONES: No acute fracture. OTHER FINDINGS: None. IMPRESSION: There is minimal perinephric stranding on the right. This could be secondary to pyelonephritis. There is no evidence of urolithiasis. There is no hydronephrosis.
--- NOTE | 2018-02-05 13:56 | CP.PCM.PN ---
Subjective - Date & Time of Evaluation Date of Evaluation: 02/05/18 Time of Evaluation: 08:00 - Subjective Subjective: Resident Progress Note for Hospitalist Service Patient examined at bedside. No acute events overnight. States her right flank pain is worsening, now radiating to her right lower quadrant. Rates the severity of her pain +9/10. Denies nausea, vomiting, changes in bowel movements, dysuria. Objective - Vital Signs/Intake and Output Vital Signs (last 24 hours): Temp Pulse Resp BP Pulse Ox 98 F 71 20 147/88 98 02/05/18 08:21 02/05/18 10:00 02/05/18 08:21 02/05/18 08:21 02/05/18 08:21 - Medications Medications: Current Medications Acetaminophen (Tylenol 325mg Tab) 650 mg PO Q6H PRN PRN Reason: Fever >100.4 F Last Admin: 02/04/18 17:37 Dose: 650 mg Docusate Sodium (Colace) 100 mg PO BID [facility] Last Admin: 02/05/18 10:20 Dose: 100 mg Guaifenesin (Mucinex La) 600 mg PO BID [facility] Last Admin: 02/05/18 10:19 Dose: 600 mg Guaifenesin (Robitussin) 100 mg PO Q4H PRN PRN Reason: Cough Last Admin: 02/05/18 03:16 Dose: 100 mg Heparin Sodium (Porcine) (Heparin) 5,000 units SC Q8 [facility]; Protocol Last Admin: 02/05/18 05:15 Dose: 5,000 units Ceftriaxone Sodium (Rocephin 2 Gm Ivpb) 2 gm in 100 mls @ 100 mls/hr IVPB DAILY [facility]; Protocol Last Admin: 02/05/18 10:16 Dose: 100 mls/hr Sodium Chloride (Sodium Chloride 0.9%) 1,000 mls @ 100 mls/hr IV .Q10H [facility] Last Admin: 02/05/18 12:07 Dose: 100 mls/hr Ketorolac Tromethamine (Toradol) 15 mg IVP DAILY PRN PRN Reason: Pain, moderate (4-7) Morphine Sulfate (Morphine) 2 mg IVP Q6H PRN PRN Reason: Pain, severe (8-10) Stop: 02/06/18 13:36 Last Admin: 02/05/18 08:00 Dose: 2 mg Ondansetron HCl (Zofran Inj) 4 mg IVP Q4H PRN PRN Reason: Nausea/Vomiting Last Admin: 02/05/18 10:19 Dose: 4 mg - Labs Labs: 02/05/18 05:30 02/05/18 05:30 - Constitutional Appears: In Acute Distress - Head Exam Head Exam: ATRAUMATIC, NORMOCEPHALIC - Eye Exam Eye Exam: EOMI, Normal appearance - ENT Exam ENT Exam: Mucous Membranes Moist - Neck Exam Neck Exam: Full ROM, Normal Inspection - Respiratory Exam Respiratory Exam: Clear to Ausculation Bilateral, NORMAL BREATHING PATTERN - Cardiovascular Exam Cardiovascular Exam: REGULAR RHYTHM, +S1, +S2 - GI/Abdominal Exam GI & Abdominal Exam: Soft, Tenderness (right lower quadrant ), Normal Bowel Sounds - Extremities Exam Extremities Exam: Full ROM, Normal Capillary Refill - Back Exam Back Exam: CVA tenderness (R) - Neurological Exam Neurological Exam: Alert, Awake, CN II-XII Intact, Oriented x3 - Psychiatric Exam Psychiatric exam: Anxious - Skin Skin Exam: Dry, Intact, Warm Assessment and Plan - Assessment and Plan (Free Text) Assessment: 47 year old female with past medical history of fibroids, ovarian cyst and substance abuse who presented with complaint of fever, right sided flank pain and intractable nausea/vomiting. She was found to have mild right hydronephrosis and mild hydroureter without evidence of renal calculus with mild perinephric fat infiltration on CT scan. BCx/UCx is growing gram negative rods. Plan: Gram negative bacilli bacteremia 2/2 R pyelonephritis - code sepsis called in ED - currently afebrile, no leukocytosis - UA: large blood, trace LE, + protein, ketones - CT abdomen/pelvis: mild R hydronephrosis and mild hydroureter w/o evidence of renal calculus; unchanged from prior exam, however there is new mild perinephric fat infiltration; enlarged leiomyomatous uterus, new L ovarian cyst measuring 2.9 cm; recommend f/u pelvis ultrasound - Pelvic ultrasound: 1.9 x 1.7 x 1.7 cm L ovarian follicle/cyst - BCx: E.Coli x1 - UCx: E.Coli - morphine 2q6h prn for pain - zofran 4q4 prn for nausea - tylenol q6 prn for fever and headache - IVF @ 100 cc/hr - liquid diet - ID consulted. Recs appreciated. - Rocephin 2 gm IV daily New onset cough - CXR (02/04): patchy R sided opacities involving mid-lower lung, suspicious for pneumonia - Mucinex LA 600 mg BID PPx, Diet, Disposition - Diet: liquid diet - Dispo: continue to monitor, advance diet as tolerated Case discussed with Dr. Wicho Alonso PGY-1
--- NOTE | 2018-02-05 13:58 | CP.PCM.PN ---
Objective - Vital Signs/Intake and Output Vital Signs (last 24 hours): Temp Pulse Resp BP Pulse Ox 98 F 71 20 147/88 98 02/05/18 08:21 02/05/18 10:00 02/05/18 08:21 02/05/18 08:21 02/05/18 08:21 - Medications Medications: Current Medications Acetaminophen (Tylenol 325mg Tab) 650 mg PO Q6H PRN PRN Reason: Fever >100.4 F Last Admin: 02/04/18 17:37 Dose: 650 mg Docusate Sodium (Colace) 100 mg PO BID [facility] Last Admin: 02/05/18 10:20 Dose: 100 mg Guaifenesin (Mucinex La) 600 mg PO BID [facility] Last Admin: 02/05/18 10:19 Dose: 600 mg Guaifenesin (Robitussin) 100 mg PO Q4H PRN PRN Reason: Cough Last Admin: 02/05/18 03:16 Dose: 100 mg Heparin Sodium (Porcine) (Heparin) 5,000 units SC Q8 [facility]; Protocol Last Admin: 02/05/18 05:15 Dose: 5,000 units Ceftriaxone Sodium (Rocephin 2 Gm Ivpb) 2 gm in 100 mls @ 100 mls/hr IVPB DAILY [facility]; Protocol Last Admin: 02/05/18 10:16 Dose: 100 mls/hr Sodium Chloride (Sodium Chloride 0.9%) 1,000 mls @ 100 mls/hr IV .Q10H [facility] Last Admin: 02/05/18 12:07 Dose: 100 mls/hr Ketorolac Tromethamine (Toradol) 15 mg IVP DAILY PRN PRN Reason: Pain, moderate (4-7) Morphine Sulfate (Morphine) 2 mg IVP Q6H PRN PRN Reason: Pain, severe (8-10) Stop: 02/06/18 13:36 Last Admin: 02/05/18 08:00 Dose: 2 mg Ondansetron HCl (Zofran Inj) 4 mg IVP Q4H PRN PRN Reason: Nausea/Vomiting Last Admin: 02/05/18 10:19 Dose: 4 mg - Labs Labs: 02/05/18 05:30 02/05/18 05:30
[2018-02-06] MEDS: guaiFENesin 100 mg/5 ml Syrup UD PO PRN (03:43)
[2018-02-06] MEDS: Morphine 2 mg/ml ISec IVP PRN ×3 (03:43→19:06)
[2018-02-06 06:22] LABS: BASO # 0.03 K/mm3 (0.0-2.0); BASO % 0.5 % (0.0-3.0); EOS # 0.5 (0.0-0.7); GRAN # 2.48 (1.4-6.5); GRAN % 38.1 % (50.0-68.0); HEMOGLOBIN 11.3 g/dL (12.0-16.0); LYMPH # 2.6 (1.2-3.4); LYMPH % 40.2 % (22.0-35.0); MEAN CELL VOLUME 89.8 fl (80.0-105.0); MEAN CORPUSCULAR HEMOGLOBIN 30.2 pg (25.0-35.0); MEAN CORPUSCULAR HGB CONC 33.6 g/dl (31.0-37.0); MEAN PLATELET VOLUME 9.8 fl (7.0-11.0); MONO # 0.9 (0.1-0.6); MONO % 13.2 % (1.0-6.0); RBC 3.74 10^6/uL (3.5-6.1); RED CELL DISTRIBUTION WIDTH 13.6 % (11.5-14.5); WHITE BLOOD COUNT 6.5 10^3/uL (4.5-11.0)
[2018-02-06 07:21] LABS: ALB/GLOB RATIO 0.9 (1.1-1.8); ALBUMIN 2.8 g/dL (3.0-4.8); ALT/SGPT 38 U/L (7-56); AST/SGOT 29 U/L (14-36); BLOOD UREA NITROGEN 4 mg/dL (7-21); CALCIUM 8.2 mg/dL (8.4-10.5); GFR NON-AFRICAN AMERICAN > 60
[2018-02-06] MEDS: Sodium Chloride 0.9% 1,000 ML IV SCH ×2 (08:11→21:31)
[2018-02-06] MEDS: cefTRIAXone 2 GM IN NS 2 GM/100 ML BAG IVPB SCH (09:20)
[2018-02-06] MEDS: guaiFENesin 600 mg ER Tab PO SCH ×2 (09:21→18:25)
[2018-02-06] MEDS ORDERED: Potassium Chloride 20 mEq ER Tab PO STA (09:26)
--- NOTE | 2018-02-06 09:54 | CP.PCM.PN ---
Subjective - Date & Time of Evaluation Date of Evaluation: 02/06/18 Time of Evaluation: 07:30 - Subjective Subjective: Resident Progress Note for Hospitalist Service Patient examined at bedside. No acute events overnight. Patient states that her cough is worsening, with production of pink tinged sputum. She also admits to headache as well as constipation. Her abdominal pain is somewhat improved. Objective - Vital Signs/Intake and Output Vital Signs (last 24 hours): Temp Pulse Resp BP Pulse Ox 98 F 66 20 138/82 98 02/06/18 08:27 02/06/18 08:27 02/06/18 08:27 02/06/18 08:27 02/06/18 08:27 - Medications Medications: Current Medications Acetaminophen (Tylenol 325mg Tab) 650 mg PO Q6H PRN PRN Reason: Fever >100.4 F Last Admin: 02/06/18 08:02 Dose: 650 mg Docusate Sodium (Colace) 100 mg PO BID [facility] Last Admin: 02/06/18 09:20 Dose: 100 mg Guaifenesin (Mucinex La) 600 mg PO BID [facility] Last Admin: 02/06/18 09:21 Dose: 600 mg Guaifenesin (Robitussin) 100 mg PO Q4H PRN PRN Reason: Cough Last Admin: 02/06/18 03:43 Dose: 100 mg Heparin Sodium (Porcine) (Heparin) 5,000 units SC Q8 [facility]; Protocol Last Admin: 02/06/18 05:07 Dose: 5,000 units Ceftriaxone Sodium (Rocephin 2 Gm Ivpb) 2 gm in 100 mls @ 100 mls/hr IVPB DAILY [facility]; Protocol Last Admin: 02/06/18 09:20 Dose: 100 mls/hr Sodium Chloride (Sodium Chloride 0.9%) 1,000 mls @ 100 mls/hr IV .Q10H [facility] Last Admin: 02/06/18 08:11 Dose: 100 mls/hr Azithromycin 250 mg/ Sodium (Chloride) 250 mls @ 167 mls/hr IVPB DAILY [facility]; Protocol Ketorolac Tromethamine (Toradol) 15 mg IVP DAILY PRN PRN Reason: Pain, moderate (4-7) Last Admin: 02/05/18 19:13 Dose: 15 mg Morphine Sulfate (Morphine) 2 mg IVP Q6H PRN PRN Reason: Pain, severe (8-10) Stop: 02/06/18 13:36 Last Admin: 02/06/18 09:47 Dose: 2 mg Ondansetron HCl (Zofran Inj) 4 mg IVP Q4H PRN PRN Reason: Nausea/Vomiting Last Admin: 02/06/18 08:01 Dose: 4 mg - Labs Labs: 02/06/18 06:00 02/06/18 06:00 - Additional Findings Additional findings: - Constitutional Appears: In Acute Distress - Head Exam Head Exam: ATRAUMATIC, NORMOCEPHALIC - Eye Exam Eye Exam: EOMI, Normal appearance - ENT Exam ENT Exam: Mucous Membranes Moist - Neck Exam Neck Exam: Full ROM, Normal Inspection - Respiratory Exam Respiratory Exam: Clear to Ausculation Bilateral, NORMAL BREATHING PATTERN - Cardiovascular Exam Cardiovascular Exam: REGULAR RHYTHM, +S1, +S2 - GI/Abdominal Exam GI & Abdominal Exam: Soft, Tenderness (right lower quadrant ), Normal Bowel Sounds - Extremities Exam Extremities Exam: Full ROM, Normal Capillary Refill - Back Exam Back Exam: CVA tenderness (R) - Neurological Exam Neurological Exam: Alert, Awake, CN II-XII Intact, Oriented x3 - Psychiatric Exam Psychiatric exam: Anxious - Skin Skin Exam: Dry, Intact, Warm Assessment and Plan - Assessment and Plan (Free Text) Assessment: 47 year old female with past medical history of fibroids, ovarian cyst and substance abuse who presented with complaint of fever, right sided flank pain and intractable nausea/vomiting. She was found to have mild right hydronephrosis and mild hydroureter without evidence of renal calculus with mild perinephric fat infiltration on CT scan. BCx/UCx is growing gram negative rods. Plan: Gram negative bacilli bacteremia 2/2 R pyelonephritis - code sepsis called in ED - currently afebrile, no leukocytosis - UA: large blood, trace LE, + protein, ketones - CT abdomen/pelvis: mild R hydronephrosis and mild hydroureter w/o evidence of renal calculus; unchanged from prior exam, however there is new mild perinephric fat infiltration; enlarged leiomyomatous uterus, new L ovarian cyst measuring 2.9 cm; recommend f/u pelvis ultrasound - Pelvic ultrasound: 1.9 x 1.7 x 1.7 cm L ovarian follicle/cyst - BCx: E.Coli x1 - Repeat BCx from 02/05 show NG x2 - UCx: E.Coli - morphine 2q6h prn for pain - zofran 4q4 prn for nausea - tylenol q6 prn for fever and headache - IVF @ 100 cc/hr - liquid diet - ID consulted. Recs appreciated. - Rocephin 2 gm IV daily Aspiration pneumonia - Patient had history of nausea and vomiting prior to ED arrival - CXR today shows right pulmonary infiltrate - Zosyn 3.375 gm IV Q8H - Mucinex LA 600 mg BID Constipation - Abd x-ray shows nonobstructive bowel gas pattern - Colace 100 mg PO BID - Dulcolax suppository PPx, Diet, Disposition - Diet: liquid diet - Dispo: continue to monitor, advance diet as tolerated Case discussed with Dr. Wicho Alonso PGY-1
[2018-02-06] MEDS ORDERED: Bisacodyl 5mg EC Tab PO ONE (09:59)
[2018-02-06] MEDS ORDERED: Azithromycin 250 MG in Sodium Chloride 0.9% 250 ML IVPB SCH (10:00)
--- NOTE | 2018-02-06 10:35 | RAD ---
Date of service: 02/06/2018 HISTORY: eval PNA COMPARISON: 02/04/2018 FINDINGS: LUNGS: There is a right-sided infiltrate which has shown improvement PLEURA: No significant pleural effusion identified, no pneumothorax apparent. CARDIOVASCULAR: No aortic atherosclerotic calcification present. Normal cardiac size. No pulmonary vascular congestion. OSSEOUS STRUCTURES: No significant abnormalities. VISUALIZED UPPER ABDOMEN: Normal. OTHER FINDINGS: None. IMPRESSION: Improvement in right-sided pulmonary infiltrate
[2018-02-06] MEDS ORDERED: Piperacillin/Tazobact 3.375 gm 100 ML IVPB STA (13:08)
--- NOTE | 2018-02-06 13:34 | RAD ---
Date of service: 02/06/2018 HISTORY: constipation COMPARISON: None available. FINDINGS: BOWEL: Nonobstructive bowel gas pattern. No prominent free intra peritoneal gas collection. No suspicious intra-abdominal calcifications. Several scattered calcification identified at the inferior pelvis soft tissues suggestive of probable phleboliths. None are definitively shown associated with the left the right renal fossa regions. BONES: Normal. OTHER FINDINGS: None. IMPRESSION: Nonobstructive bowel gas pattern. No abnormal intra abdominal calcifications grossly evident.
[2018-02-06] MEDS ORDERED: Piperacillin/Tazobact 3.375 gm 100 ML IVPB SCH ×3 (14:00)
--- NOTE | 2018-02-06 19:58 | PN ---
DATE: 02/06/2018 SUBJECTIVE: The patient is seen in bed, in no acute distress, nontoxic, and was seen in room 371, bed 2. OBJECTIVE: VITAL SIGNS: Temperature is 98, blood pressure is 130/70, and respiratory rate of 18. HEENT: Unremarkable. NECK: Supple. LUNGS: Have decreased breath sounds. HEART: Normal S1 and S2. ABDOMEN: Soft. LABORATORY DATA: Reveals a white count is 6.5 and hemoglobin of 11. Chemistries are noted. Urinalysis is noted and microbiology reveals E. coli in the blood and E. coli in the urine, pansensitive E. coli, resistant to ampicillin only. Repeat blood cultures are negative. The patient had a CAT scan of the abdomen and pelvis is noted. ASSESSMENT AND PLAN: This is a 47-year-old female seen earlier today with sepsis with Escherichia coli bacteremia, Escherichia coli right-sided pyelonephritis on ceftriaxone. Maybe able to switch to p.o. antibiotics since the patient has been since the 02/04/2018, then switch to p.o. antibiotics. May use p.o. Cipro upon discharge. Currently on ceftriaxone. Dino Hills MD
[2018-02-06] MEDS: Piperacillin/Tazobact 3.375 gm 100 ML IVPB SCH (21:32)
[2018-02-06] MEDS ORDERED: Metoprolol 1 mg/ml Inj IVP ONE (23:35)
[2018-02-07 00:21] VITALS: RESP 20
[2018-02-07] MEDS: Morphine 2 mg/ml ISec IVP PRN ×2 (01:36→07:10)
[2018-02-07] MEDS: Piperacillin/Tazobact 3.375 gm 100 ML IVPB SCH (05:36)
[2018-02-07 06:47] LABS: BASO # 0.02 K/mm3 (0.0-2.0); BASO % 0.3 % (0.0-3.0); EOS # 0.3 (0.0-0.7); EOS % 4.4 % (1.5-5.0); GRAN # 4.86 (1.4-6.5); GRAN % 66.8 % (50.0-68.0); HEMOGLOBIN 10.9 g/dL (12.0-16.0); LYMPH # 1.5 (1.2-3.4); LYMPH % 21.2 % (22.0-35.0); MEAN CELL VOLUME 90.2 fl (80.0-105.0); MEAN CORPUSCULAR HEMOGLOBIN 30.4 pg (25.0-35.0); MEAN CORPUSCULAR HGB CONC 33.7 g/dl (31.0-37.0); MEAN PLATELET VOLUME 9.8 fl (7.0-11.0); MONO # 0.5 (0.1-0.6); MONO % 7.3 % (1.0-6.0); RBC 3.58 10^6/uL (3.5-6.1); RED CELL DISTRIBUTION WIDTH 13.4 % (11.5-14.5); WHITE BLOOD COUNT 7.3 10^3/uL (4.5-11.0)
[2018-02-07 07:00] VITALS: TEMP 98.4; O2SAT 100
[2018-02-07 07:49] LABS: ALB/GLOB RATIO 0.9 (1.1-1.8); ALBUMIN 2.9 g/dL (3.0-4.8); ALT/SGPT 134 U/L (7-56); AST/SGOT 272 U/L (14-36); BLOOD UREA NITROGEN 3 mg/dL (7-21); CALCIUM 8.3 mg/dL (8.4-10.5); GFR NON-AFRICAN AMERICAN > 60
[2018-02-07] MEDS: guaiFENesin 600 mg ER Tab PO SCH (09:21)
[2018-02-07] MEDS ORDERED: cefTRIAXone 2 GM IN NS 2 GM/100 ML BAG IVPB SCH (10:00)
[2018-02-07] MEDS ORDERED: oxyCODONE 5 mg Immediate Release Tab PO STA (11:27)
[2018-02-07] MEDS: Sodium Chloride 0.9% 1,000 ML IV SCH (12:14)
[2018-02-07 13:55] VITALS: BP 176/105
[2018-02-07 14:44] VITALS: PULSE 65
--- NOTE | 2018-02-07 15:06 | CP.PCM.DIS ---
Provider - Provider Date of Admission: 02/02/18 10:21 Attending physician: Tyshawn Sands MD Primary care physician: Reina Ward MD Consults: Dr. Alvarado Time Spent in preparation of Discharge (in minutes): 45 Diagnosis - Discharge Diagnosis (1) Pyelonephritis Status: Acute (2) Pneumonia Status: Acute Hospital Course - Lab Results Lab Results: Micro Results 02/05/18 13:20 Blood Blood Culture - Preliminary NO GROWTH AFTER 48 HOURS 02/05/18 13:00 Blood Blood Culture - Preliminary NO GROWTH AFTER 48 HOURS 02/02/18 06:15 Blood Blood Culture - Final NO GROWTH AFTER 5 DAYS 02/02/18 06:15 Blood Gram Stain - Final TEST NOT PERFORMED 02/02/18 06:00 Blood Blood Culture - Final Escherichia Coli 02/02/18 06:00 Blood Gram Stain - Final 02/02/18 07:25 Urine,Clean Catch Urine Culture - Final Escherichia Coli Most Recent Lab Values WBC 7.3 10^3/uL (4.5-11.0) 02/07/18 05:45 RBC 3.58 10^6/uL (3.5-6.1) 02/07/18 05:45 Hgb 10.9 g/dL (12.0-16.0) L 02/07/18 05:45 Hct 32.3 % (36.0-48.0) L 02/07/18 05:45 MCV 90.2 fl (80.0-105.0) 02/07/18 05:45 MCH 30.4 pg (25.0-35.0) 02/07/18 05:45 MCHC 33.7 g/dl (31.0-37.0) 02/07/18 05:45 RDW 13.4 % (11.5-14.5) 02/07/18 05:45 Plt Count 363 10^3/uL (120.0-450.0) 02/07/18 05:45 MPV 9.8 fl (7.0-11.0) 02/07/18 05:45 Gran % 66.8 % (50.0-68.0) 02/07/18 05:45 Lymph % (Auto) 21.2 % (22.0-35.0) L 02/07/18 05:45 [place] % (Auto) 7.3 % (1.0-6.0) H 02/07/18 05:45 Eos % (Auto) 4.4 % (1.5-5.0) 02/07/18 05:45 Baso % (Auto) 0.3 % (0.0-3.0) 02/07/18 05:45 Gran # 4.86 (1.4-6.5) 02/07/18 05:45 Lymph # (Auto) 1.5 (1.2-3.4) 02/07/18 05:45 [place] # (Auto) 0.5 (0.1-0.6) 02/07/18 05:45 Eos # (Auto) 0.3 (0.0-0.7) 02/07/18 05:45 Baso # (Auto) 0.02 K/mm3 (0.0-2.0) 02/07/18 05:45 pO2 159 mm/Hg (30-55) H 02/02/18 09:15 VBG pH 7.44 (7.32-7.43) H 02/02/18 09:15 VBG pCO2 36.0 (40-60) L 02/02/18 09:15 VBG HCO3 24.5 mmol/l (21-28) 02/02/18 09:15 VBG Total CO2 25.6 mmol.L (22-28) 02/02/18 09:15 VBG O2 Sat (Calc) 98.7 % (40-65) H 02/02/18 09:15 VBG Base Excess 0.6 mmol/L (0.0-2.0) 02/02/18 09:15 VBG Potassium 3.2 mmol/L (3.6-5.2) L 02/02/18 09:15 Sodium 138.0 mmol/L (132-148) 02/02/18 09:15 Chloride 107.0 mmol/L (98-107) 02/02/18 09:15 Glucose 107 mg/dl (65-105) H 02/02/18 09:15 Lactate 0.6 mmol/L (0.7-2.1) L 02/02/18 09:15 FiO2 21.0 % 02/02/18 09:15 Sodium 139 mmol/L (132-148) 02/07/18 05:45 Potassium 3.7 mmol/L (3.6-5.0) 02/07/18 05:45 Chloride 109 mmol/L (98-107) H 02/07/18 05:45 Carbon Dioxide 25 mmol/L (21-33) 02/07/18 05:45 Anion Gap 9 (10-20) L 02/07/18 05:45 BUN 3 mg/dL (7-21) L 02/07/18 05:45 Creatinine 0.5 mg/dl (0.7-1.2) L 02/07/18 05:45 Est GFR ( Amer) > 60 02/07/18 05:45 Est GFR (Non-Af Amer) > 60 02/07/18 05:45 Random Glucose 109 mg/dL (70-110) 02/07/18 05:45 Calcium 8.3 mg/dL (8.4-10.5) L 02/07/18 05:45 Phosphorus 4.2 mg/dL (2.5-4.5) 02/07/18 05:45 Magnesium 1.8 mg/dL (1.7-2.2) 02/07/18 05:45 Total Bilirubin 0.3 mg/dL (0.2-1.3) 02/07/18 05:45 AST 272 U/L (14-36) H D 02/07/18 05:45 ALT 134 U/L (7-56) H 02/07/18 05:45 Alkaline Phosphatase 271 U/L (38-126) H D 02/07/18 05:45 Troponin I < 0.01 ng/mL 02/02/18 06:15 Total Protein 6.0 g/dL (5.8-8.3) 02/07/18 05:45 Albumin 2.9 g/dL (3.0-4.8) L 02/07/18 05:45 Globulin 3.1 gm/dL 02/07/18 05:45 Albumin/Globulin Ratio 0.9 (1.1-1.8) L 02/07/18 05:45 Lipase 127 U/L (23-300) 02/02/18 06:15 Beta HCG, Quant < 2.39 mIU/mL (0-6.15) 02/02/18 06:15 Venous Blood Potassium 3.2 mmol/L (3.6-5.2) L 02/02/18 09:15 Urine Color Light red (YELLOW) 02/02/18 07:25 Urine Appearance Cloudy (CLEAR) 02/02/18 07:25 Urine pH >=9.0 (4.7-8.0) 02/02/18 07:25 Ur Specific [place] 1.015 (1.005-1.035) 02/02/18 07:25 Urine Protein 100 mg/dL (<30 mg/dL) H 02/02/18 07:25 Urine Glucose (UA) Negative mg/dL (NEGATIVE) 02/02/18 07:25 Urine Ketones 40 mg/dL (NEGATIVE) H 02/02/18 07:25 Urine Blood Large (NEGATIVE) H 02/02/18 07:25 Urine Nitrate Negative (NEGATIVE) 02/02/18 07:25 Urine Bilirubin Small (NEGATIVE) H 02/02/18 07:25 Urine Urobilinogen 2.0 E.U./dL (<1 E.U./dL) H 02/02/18 07:25 Ur Leukocyte Esterase Trace [place]/uL (NEGATIVE) H 02/02/18 07:25 Urine RBC Tntc /hpf (0-2) 02/02/18 07:25 Urine WBC TEST NOT PERFORMED 02/02/18 07:25 Urine Bacteria Large (NEG) 02/02/18 07:25 Urine HCG, Qual Negative (NEGATIVE) 02/02/18 07:25 Salicylates < 1 mg/dL (2.0-20.0) L 02/02/18 16:06 Urine Opiates Screen Positive (NEGATIVE) H 02/02/18 16:59 Urine Methadone Screen Negative (NEGATIVE) 02/02/18 16:59 Ur Barbiturates Screen Negative (NEGATIVE) 02/02/18 16:59 Ur Phencyclidine Scrn Negative (NEGATIVE) 02/02/18 16:59 Ur Amphetamines Screen Negative (NEGATIVE) 02/02/18 16:59 U Benzodiazepines Scrn Negative (NEGATIVE) 02/02/18 16:59 U Oth Cocaine Metabols Negative (NEGATIVE) 02/02/18 16:59 U Cannabinoids Screen Positive (NEGATIVE) H 02/02/18 16:59 Alcohol, Quantitative < 10 mg/dL (0-10) 02/02/18 16:06 HIV 1&2 Ag/Ab, 4th Gen Nonreactive (Nonreactive) 02/04/18 11:00 - Hospital Course Hospital Course: On admission: Patient is a 47 year old female with past medical history of appendectomy, fibroids, ovarian cysts, alcohol and drug abuse (which patient denies) presenting with worsening R sided flank pain x 1 week with associated fever (Tmax 103) x 2 days. Patient states the pain is acute in onset, sharp, and localized to the R flank/RUQ with no radiation of pain down to the groin. She took Motrin at home for pain which did not help. Patient also endorses nausea and vomiting for the past 3 days with multiple episodes of non-bloody, non- bilious vomiting prior to arrival and in the ED prior to interview. No headaches, dizziness, changes in vision, chest pain, palpitations, acute shortness of breath, cough, diarrhea, constipation, dysuria, urinary frequency or urgency, or changes in stool. Code sepsis called in the ED at 11:22 AM, temperature of 103 on admission with lactate of 2.6. During hospital stay: Code sepsis was called in ED. UA showed large blood, trace LE, + protein, ketones. CT abdomen and pelvis showed mild R hydronephrosis and mild hydroureter w/o evidence of renal calculus; unchanged from prior exam, however there is new mild perinephric fat infiltration; enlarged leiomyomatous uterus, new L ovarian cyst measuring 2.9 cm. Recommendation was made pelvic ultrasound. Pelvic ultrasound showed 1.9 x 1.7 x 1.7 cm L ovarian follicle/cyst. Blood cultures showed E.Coli x1. Repeat blood cultures from 02/05 showed NG x2. Urine culture showed E.Coli. Patient was put on merrem initially then switched to rocephin by Infectious Disease [facility] consultant. Patient also had CXR done which showed right pulmonary infiltrate. Patient was given Zosyn and Mucinex. This was likely aspiration pneumonia as patient had history of nausea and vomiting prior to ED arrival. Patient also had elevated blood pressure She was given amlodipine. Patient was medically optimized for discharge. Patient was advised to follow up with primary medical doctor in one week. Patient was discharged with ciprofloxacin, clindamycin, amlodipine, and oxycodone. Patient was instructed to take medications as prescribed and to return to ED if symptoms return or worsen. Patient expressed understanding. - Date & Time of H&P Date of H&P: 02/02/18 Time of H&P: 13:15 Discharge Exam - Additional Findings Additional findings: - Constitutional Appears: In Acute Distress - Head Exam Head Exam: ATRAUMATIC, NORMOCEPHALIC - Eye Exam Eye Exam: EOMI, Normal appearance - ENT Exam ENT Exam: Mucous Membranes Moist - Neck Exam Neck Exam: Full ROM, Normal Inspection - Respiratory Exam Respiratory Exam: Clear to Ausculation Bilateral, NORMAL BREATHING PATTERN - Cardiovascular Exam Cardiovascular Exam: REGULAR RHYTHM, +S1, +S2 - GI/Abdominal Exam GI & Abdominal Exam: Soft, Normal Bowel Sounds - Extremities Exam Extremities Exam: Full ROM, Normal Capillary Refill - Back Exam Back Exam: CVA tenderness (R) - Neurological Exam Neurological Exam: Alert, Awake, Oriented x3 - Skin Skin Exam: Dry, Intact, Warm Discharge Plan - Discharge Medications Prescriptions: amLODIPine [Norvasc] 2.5 mg PO DAILY 30 Days tab Ciprofloxacin [Cipro] 500 mg PO Q12 7 Days tab Clindamycin [Cleocin] 150 mg PO Q6 7 Days cap oxyCODONE [oxyCODONE Immediate Release Tab] 5 mg PO TID #15 tab - Follow Up Plan Condition: GUARDED Disposition: HOME/ ROUTINE Patient education suggested?: Yes Instructions: Kidney Infection (DC), Sepsis (ED) Additional Instructions: Please follow up with your primary medical doctor Dr. Ward within 1 week. You are being discharged with ciprofloxacin, clindamycin, amlodipine, and oxycodone. Please take them as prescribed. Please also resume your home medications as prescribed. Return to ED if symptoms return or worsen. Referrals: Reina Ward MD [Primary Care Provider] -
--- NOTE | 2018-02-08 00:46 | PN ---
DATE: 02/07/2018 SUBJECTIVE: The patient is in bed, in no acute distress, nontoxic, no fevers. OBJECTIVE: VITAL SIGNS: Temperature is 98, blood pressure is 150/90, and respiratory rate of 16. HEENT: Unremarkable. NECK: Supple. LUNGS: Have decreased breath sounds. HEART: Normal S1 and S2. ABDOMEN: Soft and nontender. LABORATORY DATA: Reveals a white count of 7.3. Microbiology is noted with E. Coli in the blood, urine sensitivities reviewed. The patient's HIV is negative. Urinalysis is negative and noted. ASSESSMENT AND PLAN: This is a 47-year-old female who was seen earlier, admitted with sepsis, Escherichia coli bacteremia, Escherichia coli right-sided pyelonephritis, will need 10 to 14 days of antibiotics, may switch to p.o. upon discharge and has discussed with nursing staff and house staff. Dino Hills MD
== END 2018-02-07 18:59 | disposition home or self-care (01) | DRG 584 ==
LOC: ED 05:43 → OBSVTOIN 10:21 → ERH 10:21 → 3RSO 18:54
PROVIDERS: ADMIT Internal Medicine; ATTEND Internal Medicine
DX: A41.51 Sepsis due to Escherichia coli [E. coli] (principal); J69.0 Pneumonitis due to inhalation of food and vomit; N10 Acute pyelonephritis; E87.6 Hypokalemia; N13.30 Unspecified hydronephrosis; D25.9 Leiomyoma of uterus, unspecified; N83.202 Unspecified ovarian cyst, left side; K59.00 Constipation, unspecified; Z87.891 Personal history of nicotine dependence; Z98.84 Bariatric surgery status

== ENCOUNTER 2018-07-25 13:15 | Inpatient (IN) | payer MEDICAID ==
--- NOTE | 2018-07-25 14:25 | ED PDOC ---
Arrival/HPI - General Historian: Patient - History of Present Illness Narrative History of Present Illness (Text): 07/25/18 14:20 CC: Abdominal Pain, N/V, fevers HPI: 48 yo female w/ PMH of abnormal uterine bleeding, fibroids and cysts, HTN, and pyelonephritis came to ED for evaluation of significant uterine bleeding and left flank pain. Patient states she was recently discharged from [facility] after she was treated for a kidney infection. After discharge, she finished her oral an tibiotic but continued to have flank pain that radiated to lower abdomen a/w nausea/vomiting. Patient states that she has poor oral intake 2/2 to her n/v. Patient was unable to see her PMD as she was away and decided to wait for her PMD instead of coming to the hospital. Patient states that for past month her bleeding has been very significant. For past week, patient complains that she has had of bleeding much more than her usual menstrual cycles, although her menstrual cycle is not regular. Patient has [employer] she sees outpatient who has removed fibroids in the past. Admits to headaches, dizziness, lightheadedness. Denies chest pain, sob, diarrhea, and all urinary symptoms. Time/Duration: > month Symptom Onset: Gradual Symptom Course: Worsening Quality: Stabbing Context: Sitting <Ariel Pickering - Last Filed: 07/25/18 17:42> <Al Weston - Last Filed: 07/25/18 21:02> - General Historian: Patient <Rafael Covarrubias - Last Filed: 07/25/18 21:14> - General Chief Complaint: Abdominal Pain Time Seen by Provider: 07/25/18 14:20 Past Medical History - Provider Review Nursing Documentation Reviewed: Yes - Infectious Disease Hx of Infectious Diseases: None - Cardiac Hx Cardiac Disorders: No - Pulmonary Hx Respiratory Disorders: No - Neurological Hx Neurological Disorder: No - HEENT Hx HEENT Disorder: No - Renal Hx Renal Disorder: Yes Hx Pyelonephritis: Yes - Endocrine/Metabolic Hx Endocrine Disorders: No - Hematological/Oncological Hx Blood Disorders: No - Integumentary Hx Dermatological Disorder: No - Musculoskeletal/Rheumatological Hx Musculoskeletal Disorders: No Hx Falls: No - Gastrointestinal Hx Gastrointestinal Disorders: Yes Other/Comment: Diverticulosis - Genitourinary/Gynecological Hx Genitourinary Disorders: Yes (Fibroids) - Psychiatric Hx Psychophysiologic Disorder: No Hx Substance Use: Yes - Surgical History Other/Comment: Ovarian sx/ovarian cyst - Anesthesia Hx Anesthesia: Yes Hx Anesthesia Reactions: No Hx Malignant Hyperthermia: No <RaheelMadaser - Last Filed: 07/25/18 17:42> Family/Social History - Physician Review Nursing Documentation Reviewed: Yes Family/Social History: No Known Family HX Smoking Status: Former Smoker Hx Alcohol Use: Yes Hx Substance Use: Yes <Raheel,Madaser - Last Filed: 07/25/18 17:42> Allergies/Home Meds <Raheel,Madaser - Last Filed: 07/25/18 17:42> <Al Weston - Last Filed: 07/25/18 21:02> <Rafael Covarrubias - Last Filed: 07/25/18 21:14> Allergies/Adverse Reactions: Allergies seafood Allergy (Severe, Uncoded 10/14/17 13:07) ANAPHYLAXIS Home Medications: Home Meds Medication Instructions Recorded Confirmed No Known Home Med 07/25/18 07/25/18 Review of Systems - Physician Review All systems were reviewed & negative as marked: Yes - Review of Systems Constitutional: Fevers. absent: Normal Eyes: Normal. absent: Vision Changes, Photophobia, Eye Pain ENT: Normal. absent: Hearing Changes, Tinnitus Respiratory: Normal. absent: SOB, Cough, Sputum, Wheezing Gastrointestinal: Nausea, Vomiting. absent: Normal, Abdominal Pain, Stool Changes, Constipation, Diarrhea Genitourinary Female: Vaginal Bleeding. absent: Dysuria, Frequency, Hematuria Musculoskeletal: Normal. absent: Arthralgias, Neck Pain, Joint Swelling Skin: Normal. absent: Rash, Pruritis, Skin Lesions, Laceration Neurological: Normal. absent: Headache, Dizziness, Focal Weakness Endocrine: Normal. absent: Diaphoresis, Polyuria, Polydipsia Psychiatric: Normal. absent: Anxiety, Depression, Suicidal Ideation <Raheel,Madaser - Last Filed: 07/25/18 17:42> Physical Exam Vital Signs Reviewed: Yes Temperature: Afebrile Blood Pressure: Hypertensive Pulse: Regular Respiratory Rate: Normal Appearance: Positive for: Ill-Appearing, Uncomfortable. No: Well-Appearing, Non-Toxic, Comfortable Pain Distress: Moderate Mental Status: Positive for: Alert and Oriented X 3. No: Confused, Agitated, Lethargic - Systems Exam Head: Present: Atraumatic, Normocephalic Pupils: Present: PERRL Extroacular Muscles: Present: EOMI Conjunctiva: Present: Normal Mouth: Present: Dry. No: Drooling, Trismus Respiratory/Chest: Present: Clear to Auscultation, Good Air Exchange. No: Respiratory Distress, Accessory Muscle Use, Wheezes, Decreased Breath Sounds, Rales, Retracting, Rhonchi, Tachypneic Cardiovascular: Present: Regular Rate and Rhythm, Normal S1, S2. No: Murmurs, Irregular Rhythm Abdomen: Present: Tenderness, Normal Bowel Sounds. No: Distention, Peritoneal Signs Back: Present: CVA Tenderness. No: Midline Tenderness, Paraspinal Tenderness Upper Extremity: Present: Normal Inspection. No: Cyanosis, Edema Lower Extremity: Present: Normal Inspection. No: Edema Neurological: Present: GCS=15, CN II-XII Intact, Speech Normal Skin: Present: Warm, Dry, Normal Color. No: Rashes Psychiatric: Present: Alert, Oriented x 3, Normal Insight, Normal Concentration <Ariel Pickering - Last Filed: 07/25/18 17:42> Vital Signs Pulse Resp BP Pulse Ox 07/25/18 16:50 69 18 157/93 H 98 07/25/18 14:00 60 18 156/91 H 100 <Al Weston - Last Filed: 07/25/18 21:02> Vital Signs Pulse Resp BP Pulse Ox 07/25/18 18:00 61 18 154/92 H 99 07/25/18 16:50 69 18 157/93 H 98 07/25/18 14:00 60 18 156/91 H 100 <Rafael Covarrubias - Last Filed: 07/25/18 21:14> Medical Decision Making ED Course and Treatment: 07/25/18 15:13 Impression 48 yo female w/ PMH of abnormal uterine bleeding, fibroids and cysts, HTN, and pyelonephritis came to ED for evaluation of significant uterine bleeding and left flank pain. Plan -VBG -CBC/CMP -2x 2mg morphine -1x 4mg Zofran -EKG -U/A Prior Visits 07/05/14: Ovarian Torsion 06/18/15: Ear Ache 06/27/15: PNA 01/10/17: Allergic Reaction 10/14/17: Eye and Ear Pain 02/02/18: Pyelonephritis Progress Notes All bloodwork was reviewed by me and findings are benign. Recommend CT abd/pelvis because patient continues to have severe right flank pain Patient continues to have pain, another dose of morphine was administered Pending urine preg to complete CT abd/pelvis 07/25/18 15:14 07/25/18 15:41 07/25/18 17:42 - Lab Interpretations Lab Results: 07/25/18 15:03 07/25/18 15:03 Lab Results 07/25/18 15:03: Sodium 139, Potassium 3.7, Chloride 104, Carbon Dioxide 22, Anion Gap 16, BUN 7, Creatinine 0.6 L, Est GFR ( Amer) > 60, Est GFR (Non-Af Amer) > 60, Random Glucose 71, Calcium 9.4, Total Bilirubin 0.4, AST 29, ALT 15, Alkaline Phosphatase 75, Total Protein 7.9, Albumin 4.4, Globulin 3.5, Albumin/Globulin Ratio 1.3 07/25/18 15:03: WBC 7.7, RBC 4.33, Hgb 13.2 D, Hct 39.5, MCV 91.2, MCH 30.5, MCHC 33.4, RDW 13.4, Plt Count 280, MPV 10.3, Neut % (Auto) 59.0, Lymph % (Auto) 31.9, [place] % (Auto) 6.1 H, Eos % (Auto) 2.7, Baso % (Auto) 0.3, Lymph # (Auto) 2.5, [place] # (Auto) 0.5, Eos # (Auto) 0.2, Baso # (Auto) 0.02, Absolute Neuts (auto) 4.57 I have reviewed the lab results: Yes Interpretation: All labs normal <Ariel Pickering - Last Filed: 07/25/18 17:42> ED Course and Treatment: 07/25/18 21:02 CT a/p reveals enlarged uterus with cystic changes seen within the ovaries. Patient reevaluated and is still in pain. She agrees to observation. - Lab Interpretations Lab Results: Total Bilirubin 0.4 mg/dL (0.2-1.3) 07/25/18 15:03 AST 29 U/L (14-36) 07/25/18 15:03 ALT 15 U/L (7-56) 07/25/18 15:03 Alkaline Phosphatase 75 U/L (38-126) 07/25/18 15:03 Total Protein 7.9 g/dL (5.8-8.3) 07/25/18 15:03 Albumin 4.4 g/dL (3.0-4.8) 07/25/18 15:03 Globulin 3.5 gm/dL 07/25/18 15:03 Albumin/Globulin Ratio 1.3 (1.1-1.8) 07/25/18 15:03 Urine Color Yellow (YELLOW) 07/25/18 17:00 Urine Appearance Clear (CLEAR) 07/25/18 17:00 Urine pH 6.5 (4.7-8.0) 07/25/18 17:00 Ur Specific Clark 1.015 (1.005-1.035) 07/25/18 17:00 Urine Protein Trace mg/dL (<30 mg/dL) H 07/25/18 17:00 Urine Glucose (UA) Negative mg/dL (NEGATIVE) 07/25/18 17:00 Urine Ketones 15 mg/dL (NEGATIVE) H 07/25/18 17:00 Urine Blood Trace-lysed (NEGATIVE) H 07/25/18 17:00 Urine Nitrate Negative (NEGATIVE) 07/25/18 17:00 Urine Bilirubin Negative (NEGATIVE) 07/25/18 17:00 Urine Urobilinogen 0.2 E.U./dL (<1 E.U./dL) 07/25/18 17:00 Ur Leukocyte Esterase Negative Mohini/uL (NEGATIVE) 07/25/18 17:00 Urine RBC 1 - 3 /hpf (0-2) H 07/25/18 17:00 Urine WBC 2 - 5 /hpf (0-6) 07/25/18 17:00 Ur Epithelial Cells 6 - 8 /hpf (0-5) H 07/25/18 17:00 Urine Bacteria Mod /hpf (NONE) 07/25/18 17:00 - RAD Interpretation Radiology Orders: 07/25/18 15:25 ABDOMEN & PELVIS [ABD & PELVIS W/O PO OR IV CONT] [CT] Stat - EKG Interpretation EKG Interpretation (Text): 07/25/18 19:27 Sinus Bradycardia @ [address] abnormalities. Interpreted by ED Physician: Yes Type: 12 lead EKG - Medication Orders Current Medication Orders: Sodium Chloride (Sodium Chloride 0.9%) 1,000 mls @ 100 mls/hr IV .Q10H BECCA Last Admin: 07/25/18 16:49 Dose: 100 mls/hr eMAR Start Stop Document 07/25/18 16:49 BB (Rec: 07/25/18 16:50 BB [id number]) Intravenous Solution Start Date 07/25/18 Start Time 16:50 Discontinued Medications Morphine Sulfate (Morphine) 2 mg IVP STAT STA Stop: 07/25/18 14:39 Last Admin: 07/25/18 15:04 Dose: 2 mg MAR Pain Assessment Document 07/25/18 15:04 BB (Rec: 07/25/18 15:04 BB [id number] Pain Reassessment Is this a pain reassessment? No Sleep Is patient sleeping during reassessment? No Presence of Pain Presence of Pain Yes Pain Scale Used Protocol: [facility] Pain Scale Used Numeric Location Pain Location Body Site Abdomen Description Description Constant Intensity of Pain at present 10 Pain Behavior Withdrawal from Touch Grasping Site Rubbing Site Restlessness Facial Grimacing IVP Administration Document 07/25/18 15:04 BB (Rec: 07/25/18 15:04 BB [id number]) Charges for Administration # of IVP Administrations 1 Re-Assess: MAR Pain Assessment Document 07/25/18 16:04 BB (Rec: 07/25/18 16:22 BB [id number]) Pain Reassessment Is this a pain reassessment? Yes Sleep Is patient sleeping during reassessment? No Presence of Pain Presence of Pain Yes Pain Scale Used Protocol: [facility] Pain Scale Used Numeric Location Left, Right or Bilateral Right Pain Location Body Site Abdomen Description Description Constant Intensity of Pain at present 8 Pain Behavior Grasping Site Rubbing Site Restlessness Morphine Sulfate (Morphine) 2 mg IVP STAT STA Stop: 07/25/18 17:35 Last Admin: 07/25/18 18:16 Dose: 2 mg MAR Pain Assessment Document 07/25/18 18:16 BB (Rec: 07/25/18 18:17 BB [id number] Pain Reassessment Is this a pain reassessment? Yes Sleep Is patient sleeping during reassessment? No Presence of Pain Presence of Pain Yes [facility] Scale Used [facility] Used Numeric Location Pain Location Body Site Abdomen Description Description Constant Intensity of Pain at present 7 Pain Behavior Grasping Site Rubbing Site Restlessness Refusal to Eat IVP Administration Document 07/25/18 18:16 BB (Rec: 07/25/18 18:17 BB [id number]) Charges for Administration # of IVP Administrations 1 Ondansetron HCl (Zofran Inj) 4 mg IVP STAT STA Stop: 07/25/18 14:39 Last Admin: 07/25/18 15:02 Dose: 4 mg IVP Administration Document 07/25/18 15:02 BB (Rec: 07/25/18 15:03 BB [id number] Charges for Administration # of IVP Administrations 1 <Al Weston - Last Filed: 07/25/18 21:02> ED Course and Treatment: 07/25/18 21:11 Pt to be admitted to the hospitalist service for intractable abdominal pain Pt seen, examined, assessment, and plan discussed with Dr Enrico Hall Scot PGY1 - Lab Interpretations Lab Results: Total Bilirubin 0.4 mg/dL (0.2-1.3) 07/25/18 15:03 AST 29 U/L (14-36) 07/25/18 15:03 ALT 15 U/L (7-56) 07/25/18 15:03 Alkaline Phosphatase 75 U/L (38-126) 07/25/18 15:03 Total Protein 7.9 g/dL (5.8-8.3) 07/25/18 15:03 Albumin 4.4 g/dL (3.0-4.8) 07/25/18 15:03 Globulin 3.5 gm/dL 07/25/18 15:03 Albumin/Globulin Ratio 1.3 (1.1-1.8) 07/25/18 15:03 Urine Color Yellow (YELLOW) 07/25/18 17:00 Urine Appearance Clear (CLEAR) 07/25/18 17:00 Urine pH 6.5 (4.7-8.0) 07/25/18 17:00 Ur Specific Clark 1.015 (1.005-1.035) 07/25/18 17:00 Urine Protein Trace mg/dL (<30 mg/dL) H 07/25/18 17:00 Urine Glucose (UA) Negative mg/dL (NEGATIVE) 07/25/18 17:00 Urine Ketones 15 mg/dL (NEGATIVE) H 07/25/18 17:00 Urine Blood Trace-lysed (NEGATIVE) H 07/25/18 17:00 Urine Nitrate Negative (NEGATIVE) 07/25/18 17:00 Urine Bilirubin Negative (NEGATIVE) 07/25/18 17:00 Urine Urobilinogen 0.2 E.U./dL (<1 E.U./dL) 07/25/18 17:00 Ur Leukocyte Esterase Negative Mohini/uL (NEGATIVE) 07/25/18 17:00 Urine RBC 1 - 3 /hpf (0-2) H 07/25/18 17:00 Urine WBC 2 - 5 /hpf (0-6) 07/25/18 17:00 Ur Epithelial Cells 6 - 8 /hpf (0-5) H 07/25/18 17:00 Urine Bacteria Mod /hpf (NONE) 07/25/18 17:00 - RAD Interpretation Radiology Orders: 07/25/18 15:25 ABDOMEN & PELVIS [ABD & PELVIS W/O PO OR IV CONT] [CT] Stat - Medication Orders Current Medication Orders: Sodium Chloride (Sodium Chloride 0.9%) 1,000 mls @ 100 mls/hr IV .Q10H BECCA Last Admin: 07/25/18 16:49 Dose: 100 mls/hr eMAR Start Stop Document 07/25/18 16:49 BB (Rec: 07/25/18 16:50 [id number] Intraven[facility] Solution Start Date 07/25/18 Start Time 16:50 Sodium Chloride (Sodium Chloride 0.9%) 1,000 mls @ 999 mls/hr IV .Q1H1M STA Stop: 07/25/18 22:07 Discontinued Medications Morphine Sulfate (Morphine) 2 mg IVP STAT STA Stop: 07/25/18 14:39 Last Admin: 07/25/18 15:04 Dose: 2 mg MAR Pain Assessment Document 07/25/18 15:04 BB (Rec: 07/25/18 15:04 [facility] [id number] Pain Reassessment Is this a pain reassessment? No Sleep Is patient sleeping during reassessment? No Presence of Pain Presence of Pain Yes Pain Scale Used Protocol: PSCALES Pain Scale Used Numeric Location Pain Location Body Site Abdomen Description Description Constant Intensity of Pain at present 10 Pain Behavior Withdrawal from Touch Grasping Site Rubbing Site Restlessness Facial Grimacing IVP Administration Document 07/25/18 15:04 BB (Rec: 07/25/18 15:04 BB [id number] Charges for Administration # of IVP Administrations 1 Re-Assess: MAR Pain Assessment Document 07/25/18 16:04 BB (Rec: 07/25/18 16:22 BB [id number] Pain Reassessment Is this a pain reassessment? Yes Sleep Is patient sleeping during reassessment? No Presence of Pain Presence of Pain Yes Pain Scale Used Protocol: [facility] Pain Scale Used Numeric Location Left, Right or Bilateral Right Pain Location Body Site Abdomen Description Description Constant Intensity of Pain at present 8 Pain Behavior Grasping Site Rubbing Site Restlessness Morphine Sulfate (Morphine) 2 mg IVP STAT STA Stop: 07/25/18 17:35 Last Admin: 07/25/18 18:16 Dose: 2 mg MAR Pain Assessment Document 07/25/18 18:16 BB (Rec: 07/25/18 18:17 BB [id number] Pain Reassessment Is this a pain reassessment? Yes Sleep Is patient sleeping during reassessment? No Presence of Pain Presence of Pain Yes Pain Scale Used Protocol: [facility] Pain Scale Used Numeric Location Pain Location Body Site Abdomen Description Description Constant Intensity of Pain at present 7 Pain Behavior Grasping Site Rubbing Site Restlessness Refusal to Eat IVP Administration Document 07/25/18 18:16 BB (Rec: 07/25/18 18:17 BB [id number] Charges for Administration # of IVP Administrations 1 Morphine Sulfate (Morphine) 4 mg IVP STAT STA Stop: 07/25/18 20:10 Last Admin: 07/25/18 20:15 Dose: 4 mg MAR Pain Assessment Document 07/25/18 20:15 JOL (Rec: 07/25/18 20:16 JOL [id number]) Pain Reassessment Is this a pain reassessment? No Sleep Is patient sleeping during reassessment? No Presence of Pain Presence of Pain Yes Pain Scale Used Protocol: [facility] Pain Scale Used Numeric Location Pain Location Body Site Abdomen Description Intensity of Pain at present 8 Acceptable Level of Pain 2 IVP Administration Document 07/25/18 20:15 JOL (Rec: 07/25/18 20:16 JOL [id number]) Charges for Administration # of IVP Administrations 1 Ondansetron HCl (Zofran Inj) 4 mg IVP STAT STA Stop: 07/25/18 14:39 Last Admin: 07/25/18 15:02 Dose: 4 mg IVP Administration Document 07/25/18 15:02 BB (Rec: 07/25/18 15:03 BB [id number] Charges for Administration # of IVP Administrations 1 Ondansetron HCl (Zofran Inj) 4 mg IVP STAT STA Stop: 07/25/18 20:10 Last Admin: 07/25/18 20:16 Dose: 4 mg IVP Administration Document 07/25/18 20:16 JOL (Rec: 07/25/18 20:16 JOL [id number]) Charges for Administration # of IVP Administrations 1 <Rafael Covarrubias - Last Filed: 07/25/18 21:14> Disposition/Present on Arrival - Present on Arrival History of DVT/PE: No History of Uncontrolled Diabetes: No Urinary Catheter: No History Surgical Site Infection Following: None <Ariel Pickering - Last Filed: 07/25/18 17:42> <Al Weston - Last Filed: 07/25/18 21:02> - Present on Arrival Any Indicators Present on Arrival: No - Disposition Have Diagnosis and Disposition been Completed?: Yes Disposition Time: 21:14 <Rafael Covarrubias - Last Filed: 07/25/18 21:14> - Disposition Diagnosis: Intractable abdominal pain Condition: GOOD Referrals: Reina Ward MD [Primary Care Provider] - Follow up with primary Forms: [employer] (I[place]ic)
[2018-07-25 14:26] VITALS: BMI 23.9
[2018-07-25] MEDS ORDERED: Morphine 2 mg/ml ISec IVP STA ×3 (14:38→23:09)
[2018-07-25 15:08] LABS: BASO # 0.02 K/mm3 (0.0-2.0); BASO % 0.3 % (0.0-3.0); EOS # 0.2 (0.0-0.7); EOS % 2.7 % (1.5-5.0); HEMOGLOBIN 13.2 g/dL (12.0-16.0); LYMPH # 2.5 (1.2-3.4); LYMPH % 31.9 % (22.0-35.0); MEAN CELL VOLUME 91.2 fl (80.0-105.0); MEAN CORPUSCULAR HEMOGLOBIN 30.5 pg (25.0-35.0); MEAN CORPUSCULAR HGB CONC 33.4 g/dl (31.0-37.0); MEAN PLATELET VOLUME 10.3 fl (7.0-11.0); MONO # 0.5 (0.1-0.6); MONO % 6.1 % (1.0-6.0); RBC 4.33 10^6/uL (3.5-6.1); RED CELL DISTRIBUTION WIDTH 13.4 % (11.5-14.5); WHITE BLOOD COUNT 7.7 10^3/uL (4.5-11.0)
[2018-07-25 15:18] LABS: ALB/GLOB RATIO 1.3 (1.1-1.8); ALBUMIN 4.4 g/dL (3.0-4.8); ALT/SGPT 15 U/L (7-56); AST/SGOT 29 U/L (14-36); BLOOD UREA NITROGEN 7 mg/dL (7-21); CALCIUM 9.4 mg/dL (8.4-10.5); GFR NON-AFRICAN AMERICAN > 60
[2018-07-25] MEDS: Sodium Chloride 0.9% 1,000 ML IV SCH (16:49)
[2018-07-25 17:07] LABS: PH,URINE 6.5 (4.7-8.0); URINE BILIRUBIN NEGATIVE (NEGATIVE); URINE BLOOD TRACE-LYSED (NEGATIVE); URINE GLUCOSE (UA) NEGATIVE (NEGATIVE); URINE LEUKOCYTE ESTERASE NEGATIVE Leu/uL (NEGATIVE); URINE PROTEIN TRACE mg/dL (<30 mg/dL); URINE UROBILINOGEN 0.2 E.U./dL (<1 E.U./dL)
[2018-07-25 17:08] LABS: URINE APPEARANCE CLEAR (CLEAR); URINE COLOR YELLOW (YELLOW)
[2018-07-25 17:22] LABS: URINE BACTERIA MOD /hpf
[2018-07-25] MEDS ORDERED: Morphine 4 mg/ml ISec IVP STA (20:09)
[2018-07-25] MEDS ORDERED: Morphine 4 mg/ml ISec ONE (20:15)
[2018-07-25] MEDS ORDERED: Sodium Chloride 0.9% 1,000 ML IV STA (21:07)
[2018-07-25 23:22] LABS: VENOUS BLOOD GAS PO2 32 mm/Hg (30-55); VENOUS BLOOD PH 7.37 (7.32-7.43)
[2018-07-25 23:23] LABS: VENOUS BLOOD FIO2 21 %; VENOUS BLOOD GAS BASE EXCESS -0.6 mmol/L (0.0-2.0)
--- NOTE | 2018-07-25 23:42 | CP.PCM.HP ---
<Oumou Gonzalez - Last Filed: 07/26/18 08:44> History of Present Illness - History of Present Illness History of Present Illness: HISTORY & PHYSICAL NOTE FOR HOSPITALIST SERVICE- DR. CARY GONZALEZ PGY1 48 y/o F with PMH pyelonephritis, uterine fibroids s/p myomectomy , ovarian cysts s/p cystectomy , Hx ETOH abuse, opiate/cannabinoid abuse (pt denies both) presents to ED with complaints of diffuse abdominal and R flank pain that she reports has been ongoing for about 4 months. She reports current pain is 9/10 and requests pain medication. She reports she's also had R flank pain ever since she came home from the hospital about 5 months ago. She reports compliance with the antibiotics that she was prescribed upon discharge. She has associated nausea & non-bloody non-bilious vomiting & headaches. She reports abnormal uterine bleeding over the past month. She reports she has irregular menstrual periods every 30-60 days lasting 4-5 days, where she uses 36 pads and has been on her period for the last week. She reports she hasn't seen her DROP WORKER in about a year d/t insurance issues. She reports subjective fevers, denies chills, chest pain, palpitations, shortness of breath, constipation, diarrhea, dysuria, hematuria, pyuria. PMHx: pyelonephritis, alcohol abuse, drug abuse (pt denies both), fibroids, ovarian cysts PSHx: appendectomy, tubal ligation, myomectomy Allergies: seafood- swelling Meds: motrin for pain Social Hx: reports frequent marijuana use, former cigarettes smoker, denies alcohol or other illicit drug use--hx of cocaine and opiates abuse per chart FHx: Mother: decreased: HIV. Father: : [place] PMD: Dr. Ward PRODUCTION PLANNING SUPERVISOR: Dr. Herring (hasn't seen since 08/2017) [facility] Present on Admission - Present on Admission Any Indicators Present on Admission: No Review of Systems - Review of Systems Review of Systems: per HPI Past Patient History - Infectious Disease Hx of Infectious Diseases: None - Past Social History Smoking Status: Former Smoker - CARDIAC Hx Cardiac Disorders: No - PULMONARY Hx Respiratory Disorders: No - NEUROLOGICAL Hx Neurological Disorder: No - HEENT Hx HEENT Problems: No - RENAL Hx Chronic Kidney Disease: Yes Hx Pyelonephritis: Yes - ENDOCRINE/METABOLIC Hx Endocrine Disorders: No - HEMATOLOGICAL/ONCOLOGICAL Hx Blood Disorders: No - INTEGUMENTARY Hx Dermatological Problems: No - MUSCULOSKELETAL/RHEUMATOLOGICAL Hx Musculoskeletal Disorders: No Hx Falls: No - GASTROINTESTINAL Hx Gastrointestinal Disorders: Yes Other/Comment: Diverticulosis - GENITOURINARY/GYNECOLOGICAL Hx Genitourinary Disorders: Yes (Fibroids) - PSYCHIATRIC Hx Psychophysiologic Disorder: No Hx Substance Use: Yes - SURGICAL HISTORY Other/Comment: Ovarian sx/ovarian cyst - ANESTHESIA Hx Anesthesia: Yes Hx Anesthesia Reactions: No Hx Malignant Hyperthermia: No Meds Allergies/Adverse Reactions: Allergies Allergy/AdvReac Type Severity Reaction Status Date / Time seafood Allergy Severe ANAPHYLAXIS Uncoded 10/14/17 13:07 Physical Exam - Constitutional Appears: Well, Non-toxic, No Acute Distress - Head Exam Head Exam: NORMAL INSPECTION, NORMOCEPHALIC - Eye Exam Eye Exam: EOMI, Normal appearance - ENT Exam ENT Exam: Mucous Membranes Moist - Neck Exam Neck exam: Positive for: Normal Inspection - Respiratory Exam Respiratory Exam: NORMAL BREATHING PATTERN. absent: Rales, Respiratory Distress - Cardiovascular Exam Cardiovascular Exam: REGULAR RHYTHM, +S1, +S2 - GI/Abdominal Exam GI & Abdominal Exam: Soft. absent: Rebound, Rigid, Tenderness - Extremities Exam Extremities exam: Positive for: normal inspection. Negative for: calf tenderness - Back Exam Back exam: CVA tenderness (R), NORMAL INSPECTION. absent: CVA tenderness (L) - Neurological Exam Neurological exam: Alert, Oriented x3 - Psychiatric Exam Psychiatric exam: Normal Affect, Normal Mood - Skin Skin Exam: Dry, Intact, Warm Results - Vital Signs Recent Vital Signs: Last Vital Signs Temp 98.0 F 07/25/18 22:00 Pulse 61 07/25/18 18:00 Resp 18 07/25/18 18:00 BP 154/92 H 07/25/18 18:00 Pulse Ox 99 07/25/18 18:00 - Labs Result Diagrams: 07/26/18 06:30 07/26/18 06:30 Labs: Laboratory Results - last 24 hr 07/25/18 07/25/18 07/25/18 15:03 15:03 16:00 WBC 7.7 RBC 4.33 Hgb 13.2 D Hct 39.5 MCV 91.2 MCH 30.5 MCHC 33.4 RDW 13.4 Plt Count 280 MPV 10.3 Neut % (Auto) 59.0 Lymph % (Auto) 31.9 Emery % (Auto) 6.1 H Eos % (Auto) 2.7 Baso % (Auto) 0.3 Lymph # (Auto) 2.5 Emery # (Auto) 0.5 Eos # (Auto) 0.2 Baso # (Auto) 0.02 Absolute Neuts (auto) 4.57 pO2 32 VBG pH 7.37 VBG pCO2 43.0 VBG HCO3 24.9 VBG Total CO2 26.2 VBG O2 Sat (Calc) 59 VBG Base Excess -0.6 L VBG Potassium 3.7 Glucose 66 Lactate 1.9 FiO2 21 Sodium 139 139.0 Potassium 3.7 Chloride 104 106.0 Carbon Dioxide 22 Anion Gap 16 BUN 7 Creatinine 0.6 L Est GFR ( Amer) > 60 Est GFR (Non-Af Amer) > 60 Random Glucose 71 Calcium 9.4 Total Bilirubin 0.4 AST 29 ALT 15 Alkaline Phosphatase 75 Total Protein 7.9 Albumin 4.4 Globulin 3.5 Albumin/Globulin Ratio 1.3 Venous Blood Potassium 3.7 Urine Color Urine Appearance Urine pH Ur Specific [place] Urine Protein Urine Glucose (UA) Urine Ketones Urine Blood Urine Nitrate Urine Bilirubin Urine Urobilinogen Ur Leukocyte Esterase Urine RBC Urine WBC Ur Epithelial Cells Urine Bacteria 07/25/18 17:00 WBC RBC Hgb Hct MCV MCH MCHC RDW Plt Count MPV Neut % (Auto) Lymph % (Auto) Emery % (Auto) Eos % (Auto) Baso % (Auto) Lymph # (Auto) Emery # (Auto) Eos # (Auto) Baso # (Auto) Absolute Neuts (auto) pO2 VBG pH VBG pCO2 VBG HCO3 VBG Total CO2 VBG O2 Sat (Calc) VBG Base Excess VBG Potassium Glucose Lactate FiO2 Sodium Potassium Chloride Carbon Dioxide Anion Gap BUN Creatinine Est GFR ( Amer) Est GFR (Non-Af Amer) Random Glucose Calcium Total Bilirubin AST ALT Alkaline Phosphatase Total Protein Albumin Globulin Albumin/Globulin Ratio Venous Blood Potassium Urine Color Yellow Urine Appearance Clear Urine pH 6.5 Ur Specific [place] 1.015 Urine Protein Trace H Urine Glucose (UA) Negative Urine Ketones 15 H Urine Blood Trace-lysed H Urine Nitrate Negative Urine Bilirubin Negative Urine Urobilinogen 0.2 Ur Leukocyte Esterase Negative Urine RBC 1 - 3 H Urine WBC 2 - 5 Ur Epithelial Cells 6 - 8 H Urine Bacteria Mod Assessment & Plan - Assessment and Plan (Free Text) Assessment: 48 y/o F with PMH pyelonephritis, uterine fibroids s/p myomectomy , ovarian cysts s/p cystectomy , Hx ETOH abuse, opiate/cannabinoid abuse admitted for intractable abdominal pain and abnormal uterine bleeding. Pt hemodynamically stable not requiring blood transfusions Plan: Intractable Abdominal Pain CT A/P 07/25 (prelim): "Uterus prominent in size. Cystic area left ovary measuring 2.8cm x 3.3cm and small cystic area along the posterior side of the uterus measures 1.8 x 1.6cm. Correlation with ultrasound of the pelvis is recommended. Postsurgical changes suspected with the lower abdomen & pelvis. Small ventral hernia. KUB: The kidneys appear within normal limits. There is no hydronephrosis or hydroureter. No urinary calculi are seen." - POS test: neg. U/A: no nitrates/LE - Ordered pelvic duplex ultrasound stat. f/u results - 1x morphine & toradol for pain control. Will avoid opiates given hx of abuse. Zofran for anti-emetic QTc 434. - continue IVF @100mls/hr - full liquid diet, advance as tolerated - f/u lipase, procalcitonin, cultures, UDS, hepatitis panel - monitor CBC in am, not acutely anemic right now GI/DVT PPx: Protonix/SCD Case reviewed with attending physician, Dr. Cary Gonzalez PGY1 <Jillian Townsend - Last Filed: 07/26/18 21:00> Results - Vital Signs Recent Vital Signs: Last Vital Signs Temp 98.1 F 07/26/18 06:00 Pulse 79 07/26/18 06:00 Resp 19 07/26/18 06:00 BP 155/86 H 07/26/18 06:00 Pulse Ox 99 07/26/18 06:00 - Labs Result Diagrams: 07/26/18 06:30 07/26/18 06:30 Labs: Laboratory Results - last 24 hr 07/25/18 07/26/18 07/26/18 16:00 00:40 00:40 WBC RBC Hgb Hct MCV MCH MCHC RDW Plt Count MPV Neut % (Auto) Lymph % (Auto) Emery % (Auto) Eos % (Auto) Baso % (Auto) Lymph # (Auto) Emery # (Auto) Eos # (Auto) Baso # (Auto) Absolute Neuts (auto) pO2 32 VBG pH 7.37 VBG pCO2 43.0 VBG HCO3 24.9 VBG Total CO2 26.2 VBG O2 Sat (Calc) 59 VBG Base Excess -0.6 L VBG Potassium 3.7 Sodium 139.0 Chloride 106.0 Glucose 66 Lactate 1.9 FiO2 21 Potassium Carbon Dioxide Anion Gap BUN Creatinine Est GFR ( Amer) Est GFR (Non-Af Amer) Random Glucose Calcium Phosphorus Magnesium Total Bilirubin AST ALT Alkaline Phosphatase Total Protein Albumin Globulin Albumin/Globulin Ratio Triglycerides 100 Cholesterol 254 H LDL Cholesterol Direct 130 H HDL Cholesterol 114 H Lipase 341 H Procalcitonin Free T4 1.07 TSH 3rd Generation 1.48 Venous Blood Potassium 3.7 Hepatitis A IgM Ab Hep Bs Antigen Hep B Core IgM Ab Hepatitis C Antibody 07/26/18 07/26/18 07/26/18 00:40 00:40 06:30 WBC 9.2 RBC 4.30 Hgb 13.2 Hct 40.0 MCV 93.0 MCH 30.7 MCHC 33.0 RDW 13.5 Plt Count 304 MPV 10.3 Neut % (Auto) 70.9 H Lymph % (Auto) 24.5 Emery % (Auto) 4.1 Eos % (Auto) 0.3 L Baso % (Auto) 0.2 Lymph # (Auto) 2.3 Emery # (Auto) 0.4 Eos # (Auto) 0.0 Baso # (Auto) 0.02 Absolute Neuts (auto) 6.54 H pO2 VBG pH VBG pCO2 VBG HCO3 VBG Total CO2 VBG O2 Sat (Calc) VBG Base Excess VBG Potassium Sodium Chloride Glucose Lactate FiO2 Potassium Carbon Dioxide Anion Gap BUN Creatinine Est GFR ( Amer) Est GFR (Non-Af Amer) Random Glucose Calcium Phosphorus Magnesium Total Bilirubin AST ALT Alkaline Phosphatase Total Protein Albumin Globulin Albumin/Globulin Ratio Triglycerides Cholesterol LDL Cholesterol Direct HDL Cholesterol Lipase Procalcitonin < 0.05 L Free T4 TSH 3rd Generation Venous Blood Potassium Hepatitis A IgM Ab Negative Hep Bs Antigen Negative Hep B Core IgM Ab Negative Hepatitis C Antibody Negative 07/26/18 06:30 WBC RBC Hgb Hct MCV MCH MCHC RDW Plt Count MPV Neut % (Auto) Lymph % (Auto) Emery % (Auto) Eos % (Auto) Baso % (Auto) Lymph # (Auto) Emery # (Auto) Eos # (Auto) Baso # (Auto) Absolute Neuts (auto) pO2 VBG pH VBG pCO2 VBG HCO3 VBG Total CO2 VBG O2 Sat (Calc) VBG Base Excess VBG Potassium Sodium 135 Chloride 101 Glucose Lactate FiO2 Potassium 3.9 Carbon Dioxide 21 Anion Gap 17 BUN 7 Creatinine 0.6 L Est GFR ( Amer) > 60 Est GFR (Non-Af Amer) > 60 Random Glucose 69 L Calcium 8.3 L Phosphorus 3.3 Magnesium 1.8 Total Bilirubin 0.6 AST 31 ALT 11 Alkaline Phosphatase 72 Total Protein 7.9 Albumin 4.3 Globulin 3.6 Albumin/Globulin Ratio 1.2 Triglycerides Cholesterol LDL Cholesterol Direct HDL Cholesterol Lipase Procalcitonin Free T4 TSH 3rd Generation Venous Blood Potassium Hepatitis A IgM Ab Hep Bs Antigen Hep B Core IgM Ab Hepatitis C Antibody Attending/Attestation - Attestation I have personally seen and examined this patient.: Yes I have fully participated in the care of the patient.: Yes I have reviewed all pertinent clinical information: Yes
[2018-07-26] MEDS ORDERED: Pneumococcal 23-Valent Vaccine IM ONE (00:04)
[2018-07-26 01:30] LABS: LIPASE 341 U/L (23-300)
[2018-07-26 01:40] LABS: HDL CHOLESTEROL 114 mg/dL (29-60)
[2018-07-26 01:41] LABS: LDL CHOLESTEROL 130 mg/dL (0-129)
[2018-07-26 01:49] LABS: FREE T4 1.07 ng/dL (0.78-2.19)
[2018-07-26 06:56] LABS: BASO # 0.02 K/mm3 (0.0-2.0); BASO % 0.2 % (0.0-3.0); EOS % 0.3 % (1.5-5.0); HEMOGLOBIN 13.2 g/dL (12.0-16.0); LYMPH # 2.3 (1.2-3.4); LYMPH % 24.5 % (22.0-35.0); MEAN CORPUSCULAR HEMOGLOBIN 30.7 pg (25.0-35.0); MEAN PLATELET VOLUME 10.3 fl (7.0-11.0); MONO # 0.4 (0.1-0.6); MONO % 4.1 % (1.0-6.0); RBC 4.3 10^6/uL (3.5-6.1); RED CELL DISTRIBUTION WIDTH 13.5 % (11.5-14.5); WHITE BLOOD COUNT 9.2 10^3/uL (4.5-11.0)
[2018-07-26 07:24] LABS: ALB/GLOB RATIO 1.2 (1.1-1.8); ALBUMIN 4.3 g/dL (3.0-4.8); ALT/SGPT 11 U/L (7-56); AST/SGOT 31 U/L (14-36); BLOOD UREA NITROGEN 7 mg/dL (7-21); CALCIUM 8.3 mg/dL (8.4-10.5); GFR NON-AFRICAN AMERICAN > 60
--- NOTE | 2018-07-26 08:41 | RAD ---
Date of service: 07/26/2018 HISTORY: sob COMPARISON: 02/06/2018 TECHNIQUE: 1 view obtained. FINDINGS: LUNGS: No active pulmonary disease. PLEURA: No significant pleural effusion identified, no pneumothorax apparent. CARDIOVASCULAR: No aortic atherosclerotic calcification present. Normal cardiac size. No pulmonary vascular congestion. OSSEOUS STRUCTURES: No significant abnormalities. VISUALIZED UPPER ABDOMEN: Normal. OTHER FINDINGS: None. IMPRESSION: No active disease.
--- NOTE | 2018-07-26 10:36 | CARD ---
APPROVED REPORT Date of service: 07/25/2018 EKG Measurement Heart [id number] <Conclusion> Sinus bradycardia with sinus arrhythmia Otherwise normal ECG
--- NOTE | 2018-07-26 11:32 | CT ---
Date of service: 07/25/2018 PROCEDURE: CT Abdomen and Pelvis without intravenous contrast HISTORY: flank pain, lower abdominal pain, r/o pyelo COMPARISON: 02/05/2018. TECHNIQUE: Unenhanced. Neither IV nor oral contrast administered Radiation dose: Total exam DLP = 383.97. mGy-cm. This CT exam was performed using one or more of the following dose reduction techniques: Automated exposure control, adjustment of the mA and/or kV according to patient size, and/or use of iterative reconstruction technique. FINDINGS: LOWER THORAX: Faint multifocal lower lobe infiltrates. LIVER: Unremarkable. No gross lesion or ductal dilatation. GALLBLADDER AND BILE DUCTS: Unremarkable. PANCREAS: Unremarkable. No gross lesion or ductal dilatation. SPLEEN: Unremarkable. ADRENALS: Unremarkable. No mass. KIDNEYS AND URETERS: Right ureter: Focal dilatation of the mid and distal right ureter. No evidence of obstructing calculus. No significant findings to suggest upper tract inflammatory change. Perinephric stranding identified on the prior study has improved. Nonspecific findings right ureter. In the appropriate clinical setting ureteritis can assume this appearance. Left kidney/ureter: Unremarkable. No hydronephrosis. No solid mass. VASCULATURE: Unremarkable. No aortic aneurysm. No atherosclerotic calcification or mural plaque present. BOWEL: Postoperative changes related to small bowel resection. APPENDIX: Prior appendectomy. PERITONEUM: Unremarkable. No free fluid. No free air. LYMPH NODES: Unremarkable. No enlarged lymph nodes. BLADDER: Unremarkable. REPRODUCTIVE: Enlarged, anteverted uterus. Bilateral cystic adnexal masses likely ovarian cysts. Similar findings identified the prior CT scan. Incidental finding(s): A tampon is in place. BONES: No acute fracture. OTHER FINDINGS: None. IMPRESSION: Decrease in lower lobe subsegmental infiltrates. Nonspecific findings mid right ureter. Anteverted, enlarged uterus with bilateral adnexal cysts. Additional benign and/or incidental findings described above. Concordant results (preliminary interpretation) provided by [employer]. Procedure Completed: 18:51. Preliminary Report: Interpreted and electronically signed: 20:03. Final Interpretation: 11:28.
[2018-07-26 12:33] LABS: HEPATITIS B SURFACE AG Negative (NEGATIVE)
[2018-07-26 12:40] LABS: HEPATITIS A IGM NEGATIVE (NEGATIVE); HEPATITIS B CORE AB NEGATIVE (NEGATIVE)
[2018-07-26 12:51] LABS: HEPATITIS C ANTIBODY NEGATIVE (NEGATIVE)
[2018-07-26] MEDS: cefTRIAXone 1 gm 1 GM/100 ML BAG IVPB SCH (18:34)
--- NOTE | 2018-07-27 05:08 | CON ---
DATE: 07/26/2017 The patient is seen in Room #566, Bed #1. CHIEF COMPLAINT: Right flank pain x2 days' duration. HISTORY OF PRESENT ILLNESS: This is a 48-year-old female with a history of polysubstance abuse, history of E. Coli bacteremia, and E. Coli pyelonephritis, history of ovarian cyst and who also had tubal ligation, appendectomy in the past, who was ALLERGIC TO SEA FOOD. The patient is admitted now with right flank pain x2 days' duration. There has been no nausea and vomiting. No fevers, no chills. There is no dysuria. There is frequency. No diarrhea or constipation. No bright red blood per rectum. PAST MEDICAL HISTORY: Significant for E. Coli bacteremia, with E. Coli pyelonephritis, ovarian cyst, polysubstance abuse. PAST SURGICAL HISTORY: Appendectomy, tubal ligation. ALLERGIES: THE PATIENT'S ALLERGIES ARE TO SEAFOOD. HOME MEDICATIONS: No medications at home. SOCIAL HISTORY: She has used polysubstance in the past and her is a truck dock material mover. She has an adult child at home. PHYSICAL EXAMINATION: VITAL SIGNS: On exam, temperature is 98, blood pressure is 157/90, respiratory rate of 18, heart rate of 79. HEENT: Examination of her HEENT is unremarkable. NECK: Supple. LUNGS: Have decreased breath sounds. HEART: Normal S1, S2. ABDOMEN: Abdominal examination is soft, nontender. There is no CVA tenderness on the right or left side. LABORATORY DATA: Laboratory examination reveals a white count of 7.7, hemoglobin of 13. Chemistries are unremarkable, mild elevation of lipase, normal pro calcitonin. Urinalysis reveals 2-5 WBC's, moderate bacteria, trace blood. Hepatitis profile is negative. LFTs are normal. Microbiology reveals E. coli in 01/2018 in the blood. ASSESSMENT AND PLAN: This is a 48-year-old female who appears to be comfortable, in no acute distress, presenting with right flank pain and on computed axial tomography scan of the abdomen, there is a faint left-sided community-acquired pneumonia which would not correlate with her location of the pain and even if she had a pneumonia, it would not cause right-sided flank pain. Pelvic inflammatory disease is also in the differential. We will treat the patient with ceftriaxone and doxycycline pending blood culture, urine cultures, Chlamydia and GC NAAT testing, HIV, FTA, and RPR and we will order and we will follow closely with you. Dino Hills MD
[2018-07-27 07:00] LABS: BASO # 0.02 K/mm3 (0.0-2.0); BASO % 0.4 % (0.0-3.0); EOS # 0.1 (0.0-0.7); EOS % 2.7 % (1.5-5.0); HEMOGLOBIN 11.9 g/dL (12.0-16.0); LYMPH # 1.8 (1.2-3.4); LYMPH % 41.1 % (22.0-35.0); MEAN CELL VOLUME 92.2 fl (80.0-105.0); MEAN CORPUSCULAR HEMOGLOBIN 30.7 pg (25.0-35.0); MEAN CORPUSCULAR HGB CONC 33.3 g/dl (31.0-37.0); MEAN PLATELET VOLUME 10.4 fl (7.0-11.0); MONO # 0.5 (0.1-0.6); RBC 3.87 10^6/uL (3.5-6.1); RED CELL DISTRIBUTION WIDTH 13.4 % (11.5-14.5); WHITE BLOOD COUNT 4.5 10^3/uL (4.5-11.0)
[2018-07-27 07:32] LABS: ALB/GLOB RATIO 1.1 (1.1-1.8); ALBUMIN 3.4 g/dL (3.0-4.8); ALT/SGPT 20 U/L (7-56); AST/SGOT 42 U/L (14-36); BLOOD UREA NITROGEN 7 mg/dL (7-21); GFR NON-AFRICAN AMERICAN > 60
[2018-07-27] MEDS: Pantoprazole 40 mg EC Tab PO SCH (08:32)
--- NOTE | 2018-07-27 09:02 | CP.PCM.PN ---
<Oswaldo Fields - Last Filed: 07/27/18 15:31> Subjective - Date & Time of Evaluation Date of Evaluation: 07/27/18 Time of Evaluation: 08:59 - Subjective Subjective: Oswaldo Fields, PGY-1, Internal Medicine Progress Note for Dr. Tarango Patient seen and evaluated at bedside. Patient had one episode of NBNB vomiting overnight and two episodes this morning. Patient continues to report right flank pain and right lower abdominal pain. Patient was unable to tolerate breakfast or lunch today. Patient reports hematuria due to her being on her period but denies any other symptoms at this time. 12-point ROS was unremarkable except for what was mentioned above. Objective - Vital Signs/Intake and Output Vital Signs (last 24 hours): Temp Pulse Resp BP Pulse Ox 97.9 F 66 19 147/98 H 99 07/26/18 23:01 07/26/18 23:01 07/26/18 23:01 07/26/18 23:01 07/26/18 23:01 Intake and Output: 07/27/18 07/27/18 06:59 18:59 Intake Total 120 Output Total 0 Balance 120 - Medications Medications: Current Medications Atorvastatin Calcium (Lipitor) 20 mg PO DIN BECCA Last Admin: 07/26/18 18:34 Dose: 20 mg Sodium Chloride (Sodium Chloride 0.9%) 1,000 mls @ 100 mls/hr IV .Q10H BECCA Last Admin: 07/25/18 16:49 Dose: 100 mls/hr Doxycycline Hyclate 100 mg/ (Sodium Chloride) 100 mls @ 100 mls/hr IVPB Q12 BECCA; Protocol Stop: 08/04/18 22:01 Last Admin: 07/26/18 22:02 Dose: 100 mls/hr Ceftriaxone Sodium (Rocephin 1 Gram Ivpb) 1 gm in 100 mls @ 100 mls/hr IVPB CORINA LY BECCA; Protocol Stop: 08/03/18 17:31 Last Admin: 07/26/18 18:34 Dose: 100 mls/hr Ondansetron HCl (Zofran Inj) 4 mg IVP Q4H PRN PRN Reason: Nausea/Vomiting Last Admin: 07/27/18 08:22 Dose: 4 mg Pantoprazole Sodium (Protonix Ec Tab) 40 mg PO ACB BECCA Last Admin: 07/27/18 08:32 Dose: 40 mg Tramadol HCl (Ultram) 50 mg PO TID PRN PRN Reason: Pain, severe (8-10) Last Admin: 07/27/18 08:34 Dose: 50 mg - Labs Labs: 07/27/18 06:40 07/27/18 06:40 - Constitutional Appears: Well, Non-toxic, No Acute Distress - Head Exam Head Exam: ATRAUMATIC, NORMAL INSPECTION, NORMOCEPHALIC - Eye Exam Eye Exam: EOMI, PERRL - ENT Exam ENT Exam: Mucous Membranes Moist - Neck Exam Neck Exam: Full ROM - Respiratory Exam Respiratory Exam: Clear to Ausculation Bilateral, NORMAL BREATHING PATTERN - Cardiovascular Exam Cardiovascular Exam: REGULAR RHYTHM, RRR, +S1, +S2. absent: Clicks, Gallop, Rubs - GI/Abdominal Exam GI & Abdominal Exam: Soft, Normal Bowel Sounds. absent: Tenderness - Neurological Exam Neurological Exam: Alert, Awake, CN II-XII Intact, Oriented x3 - Skin Skin Exam: Dry, Intact, Normal Color Assessment and Plan - Assessment and Plan (Free Text) Assessment: 48 year old female with past medical history of pyelonephritis, uterine fibroids s/p myomectomy, ovarian cysts status post cystectomy, history of alcohol abuse, opiate abuse, and cannabinoid abuse presented with abdominal pain and uterine bleeding. She additionally has had multiple episodes of nausea and vomiting. Plan: Intractible Abdominal Pain 2/2 to PID vs. muscle bruise -Abdominal CT 07/25: Decrease in lower lobe subsegmental infiltrates. Anteverted, enlarged uterus with bilateral adnexal cysts. No evidence of pyelonephritis and nephrolithiasis. -CXR 07/26: no active disease -Procal: <0.05 -Blood culture negative -Hepatitis panel unremarkable -Awaiting Pelvic Ultrasound results -UA does not show evidence of UTI with negative LE and nitrate -Will follow up chlamydia, gonorrhea for possible PID -Will follow up UCx, FTA-ABS, RPR, HIV -Continue with doxycycline and ceftriaxone started on 07/26 -Continue NS at 100cc/hr -Reduced tramadol 25 mg TID as needed for pain -Zofran 4 mg Q4PRN for nausea -Dr. Hills, ID, consulted for further recommendations. Mixed hypercholesterolemia -Continue lipitor 20 mg daily GI prophylaxis: protonix 40 ACB DVT prophylaxis: SCD Patient plan discussed with Dr. Tarango <Shun Tarango - Last Filed: 07/27/18 16:15> Objective - Vital Signs/Intake and Output Vital Signs (last 24 hours): Temp Pulse Resp BP Pulse Ox 98.3 F 72 18 159/91 H 99 07/27/18 14:00 07/27/18 14:00 07/27/18 14:00 07/27/18 14:00 07/27/18 14:00 Intake and Output: 07/27/18 07/27/18 06:59 18:59 Intake Total 120 120 Output Total 0 Balance 120 120 - Medications Medications: Current Medications Atorvastatin Calcium (Lipitor) 20 mg PO DIN BECCA Last Admin: 07/26/18 18:34 Dose: 20 mg Sodium Chloride (Sodium Chloride 0.9%) 1,000 mls @ 100 mls/hr IV .Q10H BECCA Last Admin: 07/27/18 10:35 Dose: 100 mls/hr Doxycycline Hyclate 100 mg/ (Sodium Chloride) 100 mls @ 100 mls/hr IVPB Q12 BECCA; Protocol Stop: 08/04/18 22:01 Last Admin: 07/27/18 10:33 Dose: 100 mls/hr Ceftriaxone Sodium (Rocephin 1 Gram Ivpb) 1 gm in 100 mls @ 100 mls/hr IVPB DAILY BECCA; Protocol Stop: 08/03/18 17:31 Last Admin: 07/27/18 10:34 Dose: 100 mls/hr Ondansetron HCl (Zofran Inj) 4 mg IVP Q4H PRN PRN Reason: Nausea/Vomiting Last Admin: 07/27/18 14:08 Dose: 4 mg Pantoprazole Sodium (Protonix Ec Tab) 40 mg PO ACB BECCA Last Admin: 07/27/18 08:32 Dose: 40 mg Tramadol HCl (Ultram) 25 mg PO TID PRN PRN Reason: Pain, severe (8-10) - Labs Labs: 07/27/18 06:40 07/27/18 06:40 Attending/Attestation - Attestation I have personally seen and examined this patient.: Yes I have fully participated in the care of the patient.: Yes I have reviewed all pertinent clinical information, including history, physical exam and plan: Yes Notes (Text): 07/27/18 16:04 48 year old female with past medical history of UTI, pyelonephritis, bacteremia, uterine fibroids s/p myomectomy, ovarian cysts, and substance abuse who presented with complaint of right flank pain and intractable nausea/vomiting. CT abd/pelvis showed enlarged uterus with bilateral adnexal cysts; no evidence of pyelonephritis; possible ureteritis. Pelvis sonogram was done with pending results. Recommended outpatient gynecology follow up. ID evaluation was appreciated; patient is on rocephin and doxycycline. UTox is pending. GC/Ch study pending. Patient today still reports intractable nausea and vomiting. Continue with iv fluids and zofran prn. Continue with liquid diet as tolerated. Shun Tarango MD Hospitalist.
[2018-07-27] MEDS: cefTRIAXone 1 gm 1 GM/100 ML BAG IVPB SCH (10:34)
[2018-07-27] MEDS: Sodium Chloride 0.9% 1,000 ML IV SCH ×2 (10:35→21:44)
--- NOTE | 2018-07-27 16:20 | US ---
Date of service: 07/26/2018 HISTORY: intractable abdominal pain COMPARISON: No prior ultrasound available for direct comparison. TECHNIQUE: Transabdominal pelvic ultrasound. FINDINGS: UTERUS: Heterogeneous uterine echotexture. Measures 12.0 x 5.6 x 5.9 cm. Anteverted. 4.8 x 4.1 x 5.2 cm heterogeneous uterine mass consistent with mid uterine fibroid. ENDOMETRIUM: Measures 4 mm in diameter. CERVIX: No cervical abnormality identified. RIGHT OVARY: Not visualized. LEFT OVARY: Measures 3.7 x 2.4 x 3.2 cm. Blood flow is demonstrated. 2.9 x 2.0 x 2.2 cm follicle/cyst. FREE FLUID: No significant free fluid noted. OTHER FINDINGS: None. IMPRESSION: 4.8 x 4.1 x 5.2 cm heterogeneous uterine mass consistent with mid uterine fibroid. The right ovary is not visualized. 2.9 x 2.0 x 2.2 cm left ovarian follicle/cyst. Preliminary impression was provided by [employer].
[2018-07-27 16:38] LABS: OPIATES, UR NEGATIVE (NEGATIVE)
[2018-07-27 16:45] LABS: BARBITURATES, UR NEGATIVE (NEGATIVE); BENZODIAZEPINES, UR NEGATIVE (NEGATIVE); PHENCYCLIDINE, UR NEGATIVE (NEGATIVE)
[2018-07-28 07:25] LABS: ALB/GLOB RATIO 1.2 (1.1-1.8); ALBUMIN 3.7 g/dL (3.0-4.8); ALT/SGPT 18 U/L (7-56); AST/SGOT 35 U/L (14-36); BLOOD UREA NITROGEN 4 mg/dL (7-21); CALCIUM 8.3 mg/dL (8.4-10.5); GFR NON-AFRICAN AMERICAN > 60
[2018-07-28 07:47] LABS: BASO # 0.02 K/mm3 (0.0-2.0); BASO % 0.4 % (0.0-3.0); EOS # 0.2 (0.0-0.7); HEMOGLOBIN 12.1 g/dL (12.0-16.0); LYMPH # 1.9 (1.2-3.4); LYMPH % 39.4 % (22.0-35.0); MEAN CELL VOLUME 91.5 fl (80.0-105.0); MEAN CORPUSCULAR HEMOGLOBIN 30.3 pg (25.0-35.0); MEAN CORPUSCULAR HGB CONC 33.2 g/dl (31.0-37.0); MEAN PLATELET VOLUME 10.6 fl (7.0-11.0); MONO # 0.5 (0.1-0.6); MONO % 10.8 % (1.0-6.0); RBC 3.99 10^6/uL (3.5-6.1); RED CELL DISTRIBUTION WIDTH 13.1 % (11.5-14.5); WHITE BLOOD COUNT 4.8 10^3/uL (4.5-11.0)
[2018-07-28 07:57] VITALS: O2SAT 99
[2018-07-28] MEDS: Pantoprazole 40 mg EC Tab PO SCH (08:25)
[2018-07-28] MEDS: cefTRIAXone 1 gm 1 GM/100 ML BAG IVPB SCH (09:27)
[2018-07-28] MEDS ORDERED: Lidocaine 5% Patch TD SCH (10:00)
--- NOTE | 2018-07-28 12:52 | US ---
Date of service: 07/28/2018 PROCEDURE: Ultrasound of the Kidneys HISTORY: flank pain COMPARISON: CT abdomen and pelvis from 07/25/2018. TECHNIQUE: Sonogram of the kidneys. FINDINGS: RIGHT KIDNEY: Measures: 10.3 cm. Normal in size, contour and echogenicity. No stone, solid mass lesion or hydronephrosis visualized. LEFT KIDNEY: Measures: 9.2 cm. Normal in size, contour and echogenicity. No stone, solid mass lesion or hydronephrosis visualized. OTHER FINDINGS: None. IMPRESSION: No hydronephrosis or nephrolithiasis.
[2018-07-28] MEDS ORDERED: Potassium & Sodium Phosphate PO SCH (14:00)
--- NOTE | 2018-07-28 14:23 | CP.PCM.DIS ---
<LuisolangeOswaldo leija - Last Filed: 07/28/18 14:38> Provider - Provider Date of Admission: 07/27/18 15:45 Attending physician: Shun Tarango MD Primary care physician: Reina Ward MD Consults: 07/26/18 12:31 Infectious Disease Consult Routine Comment: Consulting Provider: Dino Hills Consulting Physician: Dino Hills Reason for Consult: ureteritis and history of pyelonephritis Time Spent in preparation of Discharge (in minutes): 60 Hospital Course - Lab Results Lab Results: Micro Results 07/27/18 16:07 Urine,Clean Catch Urine Culture - Final No Growth (<1,000 CFU/ML) 07/26/18 00:40 Blood Blood Culture - Preliminary NO GROWTH AFTER 48 HOURS Most Recent Lab Values WBC 4.8 10^3/uL (4.5-11.0) 07/28/18 06:15 RBC 3.99 10^6/uL (3.5-6.1) 07/28/18 06:15 Hgb 12.1 g/dL (12.0-16.0) 07/28/18 06:15 Hct 36.5 % (36.0-48.0) 07/28/18 06:15 MCV 91.5 fl (80.0-105.0) 07/28/18 06:15 MCH 30.3 pg (25.0-35.0) 07/28/18 06:15 MCHC 33.2 g/dl (31.0-37.0) 07/28/18 06:15 RDW 13.1 % (11.5-14.5) 07/28/18 06:15 Plt Count 271 10^3/uL (120.0-450.0) 07/28/18 06:15 MPV 10.6 fl (7.0-11.0) 07/28/18 06:15 Neut % (Auto) 45.4 % (50.0-68.0) L 07/28/18 06:15 Lymph % (Auto) 39.4 % (22.0-35.0) H 07/28/18 06:15 [place] % (Auto) 10.8 % (1.0-6.0) H 07/28/18 06:15 Eos % (Auto) 4.0 % (1.5-5.0) 07/28/18 06:15 Baso % (Auto) 0.4 % (0.0-3.0) 07/28/18 06:15 Lymph # (Auto) 1.9 (1.2-3.4) 07/28/18 06:15 [place] # (Auto) 0.5 (0.1-0.6) 07/28/18 06:15 Eos # (Auto) 0.2 (0.0-0.7) 07/28/18 06:15 Baso # (Auto) 0.02 K/mm3 (0.0-2.0) 07/28/18 06:15 Absolute Neuts (auto) 2.18 (1.4-6.5) 07/28/18 06:15 pO2 32 mm/Hg (30-55) 07/25/18 16:00 VBG pH 7.37 (7.32-7.43) 07/25/18 16:00 VBG pCO2 43.0 (40-60) 07/25/18 16:00 VBG HCO3 24.9 mmol/l (21-28) 07/25/18 16:00 VBG Total CO2 26.2 mmol.L (22-28) 07/25/18 16:00 VBG O2 Sat (Calc) 59 % (40-65) 07/25/18 16:00 VBG Base Excess -0.6 mmol/L (0.0-2.0) L 07/25/18 16:00 VBG Potassium 3.7 mmol/L (3.6-5.2) 07/25/18 16:00 Sodium 139.0 mmol/L (132-148) 07/25/18 16:00 Chloride 106.0 mmol/L (98-107) 07/25/18 16:00 Glucose 66 mg/dl (65-105) 07/25/18 16:00 Lactate 1.9 mmol/L (0.7-2.1) 07/25/18 16:00 FiO2 21 % 07/25/18 16:00 Sodium 136 mmol/L (132-148) 07/28/18 06:15 Potassium 3.6 mmol/L (3.6-5.0) 07/28/18 06:15 Chloride 107 mmol/L (98-107) 07/28/18 06:15 Carbon Dioxide 20 mmol/L (21-33) L 07/28/18 06:15 Anion Gap 13 (10-20) 07/28/18 06:15 BUN 4 mg/dL (7-21) L 07/28/18 06:15 Creatinine 0.5 mg/dl (0.7-1.2) L 07/28/18 06:15 Est GFR ( Amer) > 60 07/28/18 06:15 Est GFR (Non-Af Amer) > 60 07/28/18 06:15 Random Glucose 74 mg/dL (70-110) 07/28/18 06:15 Calcium 8.3 mg/dL (8.4-10.5) L 07/28/18 06:15 Phosphorus 2.0 mg/dL (2.5-4.5) L 07/28/18 06:15 Magnesium 1.8 mg/dL (1.7-2.2) 07/28/18 06:15 Total Bilirubin 0.3 mg/dL (0.2-1.3) 07/28/18 06:15 AST 35 U/L (14-36) 07/28/18 06:15 ALT 18 U/L (7-56) 07/28/18 06:15 Alkaline Phosphatase 61 U/L (38-126) 07/28/18 06:15 Total Protein 6.8 g/dL (5.8-8.3) 07/28/18 06:15 Albumin 3.7 g/dL (3.0-4.8) 07/28/18 06:15 Globulin 3.1 gm/dL 07/28/18 06:15 Albumin/Globulin Ratio 1.2 (1.1-1.8) 07/28/18 06:15 Triglycerides 100 mg/dL (35-160) 07/26/18 00:40 Cholesterol 254 mg/dL (130-200) H 07/26/18 00:40 LDL Cholesterol Direct 130 mg/dL (0-129) H 07/26/18 00:40 HDL Cholesterol 114 mg/dL (29-60) H 07/26/18 00:40 Lipase 341 U/L (23-300) H 07/26/18 00:40 Procalcitonin < 0.05 NG/ML (0.19-0.49) L 07/27/18 06:40 Free T4 1.07 ng/dL (0.78-2.19) 07/26/18 00:40 TSH 3rd Generation 1.48 mIU/mL (0.46-4.68) 07/26/18 00:40 Venous Blood Potassium 3.7 mmol/L (3.6-5.2) 07/25/18 16:00 Urine Color Yellow (YELLOW) 07/25/18 17:00 Urine Appearance Clear (CLEAR) 07/25/18 17:00 Urine pH 6.5 (4.7-8.0) 07/25/18 17:00 Ur Specific [place] 1.015 (1.005-1.035) 07/25/18 17:00 Urine Protein Trace mg/dL (<30 mg/dL) H 07/25/18 17:00 Urine Glucose (UA) Negative mg/dL (NEGATIVE) 07/25/18 17:00 Urine Ketones 15 mg/dL (NEGATIVE) H 07/25/18 17:00 Urine Blood Trace-lysed (NEGATIVE) H 07/25/18 17:00 Urine Nitrate Negative (NEGATIVE) 07/25/18 17:00 Urine Bilirubin Negative (NEGATIVE) 07/25/18 17:00 Urine Urobilinogen 0.2 E.U./dL (<1 E.U./dL) 07/25/18 17:00 Ur Leukocyte Esterase Negative Mohini/uL (NEGATIVE) 07/25/18 17:00 Urine RBC 1 - 3 /hpf (0-2) H 07/25/18 17:00 Urine WBC 2 - 5 /hpf (0-6) 07/25/18 17:00 Ur Epithelial Cells 6 - 8 /hpf (0-5) H 07/25/18 17:00 Urine Bacteria Mod /hpf (NONE) 07/25/18 17:00 Urine Opiates Screen Negative (NEGATIVE) 07/27/18 16:09 Urine Methadone Screen Negative (NEGATIVE) 07/27/18 16:09 Ur Barbiturates Screen Negative (NEGATIVE) 07/27/18 16:09 Ur Phencyclidine Scrn Negative (NEGATIVE) 07/27/18 16:09 Ur Amphetamines Screen Negative (NEGATIVE) 07/27/18 16:09 U Benzodiazepines Scrn Negative (NEGATIVE) 07/27/18 16:09 U Oth Cocaine Metabols Negative (NEGATIVE) 07/27/18 16:09 U Cannabinoids Screen Negative (NEGATIVE) 07/27/18 16:09 RPR Nonreactive (NONREACTIVE) 07/27/18 06:40 Hepatitis A IgM Ab Negative (NEGATIVE) 07/26/18 00:40 Hep Bs Antigen Negative (NEGATIVE) 07/26/18 00:40 Hep B Core IgM Ab Negative (NEGATIVE) 07/26/18 00:40 Hepatitis C Antibody Negative (NEGATIVE) 07/26/18 00:40 HIV 1&2 Ag/Ab, 4th Gen Nonreactive (Nonreactive) 07/27/18 07:00 - Hospital Course Hospital Course: Oswaldo Fields, PGY-1, Internal Medicine Discharge Summary for Dr. Tarango 48 year old female with past medical history of pyelonephritis, uterine fibroids status post myomectomy, ovarian cysts status post cystectomy, alcohol abuse, opiod abuse presented with abdominal pain and right flank pain that had been ongoing for 4 months. Patient had right flank pain since she came home from the hospital 4 months ago and had been diagnosed with pyelonephritis. Patient was given antibiotics on discharge and was compliant with antibiotics. She had associated nausea and NBNB vomiting. She also has had abnormal uterine bleeding for the past month. She has irregular periods every 30-60 days lasting 4-5 days, where she uses 36 pads and has been on her period for the last week. Patient was admitted for intractible nausea, vomiting, and abdominal pain Abdominal CT on 07/25 showed decrease in lower lobe subsegmental infiltrates. Anteverted, enlarged uterus with bilateral adnexal cysts. No evidence of pyelonephritis and nephrolithiasis. Chest X ray was unremarkable. Procalcitonin was unremarkable. UA did not show any evidence of UTI with negative LE and nitrate. Renal ultrasound showed no evidence of hydronephrosis or nephrolithiasis. Pelvis ultrasound showed 4.8x4.1x5.2 cm heterogenous uterine mass consistent with mid uterine fibroid. In addition, 2.9x2.0,2.2 cm left ovarian follicle/cyst. UDS done yesterday was negative. During this admission, patient was started on toradol for pain, which incompletely controlled pain. Tramadol was added and initially both tramadol and toradol were being given, which was reduced to tramadol. Afterwards, tramadol was reduced to tramadol 25 mg TID which did not control the pain well. Ibuprofen and lidoderm patch were started today with no improvement in pain. Patient also has had multiple episodes of nausea and vomiting throughout this admission. Patient is unable to tolerate food or liquid but was able to tolerate tramadol. Infectious Disease saw patient who hypothesized that patient might have PID. Chlamydia, gonorrhea, FTA-ABS, HIV, hepatitis panel were ordered. HIV and hepatitis panel were negative. RPR was negative. Rest of results were pending but infectious disease did not feel as is patient had PID and recommended discharge. Patient was also hypertensive throughout admission and was started on amlodipine 5 mg daily prior to discharge. Patient was found to be stable and ready for discharge. Patient was found to be stable and ready for discharge. Patient was told to follow up with PCP within 3-5 days. Patient was told to follow up with Met[facility]ics [facility] within 1 week. Patient was told to take all medications as prescribed. Patient was told she would be given the rest of her results over the phone. Patient was told to return to the emergency department if she had any new or concerning symptoms. This is a brief summary of the events that transpired over this hospital visit. For more information, please refer to hospital documentation Discharge Diagnoses Intractible Abdominal Pain 2/2 to PID vs. muscle bruise Mixed hypercholesterolemia - Date & Time of H&P Date of H&P: 07/26/18 Time of H&P: 00:02 Discharge Exam - Head Exam Head Exam: ATRAUMATIC, NORMAL INSPECTION, NORMOCEPHALIC - Eye Exam Eye Exam: EOMI Pupil Exam: NORMAL ACCOMODATION, PERRL - Respiratory Exam Respiratory Exam: Clear to PA & Lateral, NORMAL BREATHING PATTERN - GI/Abdominal Exam GI & Abdominal Exam: Normal Bowel Sounds, Soft, Tenderness (RLQ). absent: Distended, Firm, Guarding - Extremities Exam Extremities exam: full ROM, normal capillary refill, normal inspection - Back Exam Back exam: CVA tenderness (R), paraspinal tenderness - Neurological Exam Neurological exam: Alert, CN II-XII Intact, Oriented x3 - Skin Skin Exam: Dry, Intact, Normal Color Discharge Plan - Discharge Medications Prescriptions: amLODIPine [Norvasc] 5 mg PO DAILY 30 Days #30 tab Ibuprofen [Motrin Tab] 600 mg PO QID PRN 10 Days #40 tab PRN Reason: Pain, Moderate (4-7) Pantoprazole Sodium [Protonix] 40 mg PO DAILY 10 Days #10 ect - Follow Up Plan Condition: GOOD Disposition: HOME/ ROUTINE Additional Instructions: Please follow up with your primary care doctor within 3-5 days. 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 If you have any outstanding results on the rest of your lab tests, you will be called for those results. Please take all medications as prescribed. Please start amlodipine 5 mg daily for hypertension. Please take amoxicillin and doxycycline twice a day for 7 days. Please take lipitor 20 mg daily for elevated cholesterol. Please return to the emergency department if you have any new or concerning symptoms Referrals: Reina Ward MD [Primary Care Provider] - <Shun Tarango - Last Filed: 07/28/18 15:09> Provider - Provider Date of Admission: 07/27/18 15:45 Attending physician: Shun Tarango MD Primary care physician: Reina Ward MD Consults: 07/26/18 12:31 Infectious Disease Consult Routine Comment: Consulting Provider: Dino Hills Consulting Physician: Dino Hills Reason for Consult: ureteritis and history of pyelonephritis Hospital Course - Lab Results Lab Results: Micro Results 07/27/18 16:07 Urine,Clean Catch Urine Culture - Final No Growth (<1,000 CFU/ML) 07/26/18 00:40 Blood Blood Culture - Preliminary NO GROWTH AFTER 48 HOURS Most Recent Lab Values WBC 4.8 10^3/uL (4.5-11.0) 07/28/18 06:15 RBC 3.99 10^6/uL (3.5-6.1) 07/28/18 06:15 Hgb 12.1 g/dL (12.0-16.0) 07/28/18 06:15 Hct 36.5 % (36.0-48.0) 07/28/18 06:15 MCV 91.5 fl (80.0-105.0) 07/28/18 06:15 MCH 30.3 pg (25.0-35.0) 07/28/18 06:15 MCHC 33.2 g/dl (31.0-37.0) 07/28/18 06:15 RDW 13.1 % (11.5-14.5) 07/28/18 06:15 Plt Count 271 10^3/uL (120.0-450.0) 07/28/18 06:15 MPV 10.6 fl (7.0-11.0) 07/28/18 06:15 Neut % (Auto) 45.4 % (50.0-68.0) L 07/28/18 06:15 Lymph % (Auto) 39.4 % (22.0-35.0) H 07/28/18 06:15 [place] % (Auto) 10.8 % (1.0-6.0) H 07/28/18 06:15 Eos % (Auto) 4.0 % (1.5-5.0) 07/28/18 06:15 Baso % (Auto) 0.4 % (0.0-3.0) 07/28/18 06:15 Lymph # (Auto) 1.9 (1.2-3.4) 07/28/18 06:15 [place] # (Auto) 0.5 (0.1-0.6) 07/28/18 06:15 Eos # (Auto) 0.2 (0.0-0.7) 07/28/18 06:15 Baso # (Auto) 0.02 K/mm3 (0.0-2.0) 07/28/18 06:15 Absolute Neuts (auto) 2.18 (1.4-6.5) 07/28/18 06:15 pO2 32 mm/Hg (30-55) 07/25/18 16:00 VBG pH 7.37 (7.32-7.43) 07/25/18 16:00 VBG pCO2 43.0 (40-60) 07/25/18 16:00 VBG HCO3 24.9 mmol/l (21-28) 07/25/18 16:00 VBG Total CO2 26.2 mmol.L (22-28) 07/25/18 16:00 VBG O2 Sat (Calc) 59 % (40-65) 07/25/18 16:00 VBG Base Excess -0.6 mmol/L (0.0-2.0) L 07/25/18 16:00 VBG Potassium 3.7 mmol/L (3.6-5.2) 07/25/18 16:00 Sodium 139.0 mmol/L (132-148) 07/25/18 16:00 Chloride 106.0 mmol/L (98-107) 07/25/18 16:00 Glucose 66 mg/dl (65-105) 07/25/18 16:00 Lactate 1.9 mmol/L (0.7-2.1) 07/25/18 16:00 FiO2 21 % 07/25/18 16:00 Sodium 136 mmol/L (132-148) 07/28/18 06:15 Potassium 3.6 mmol/L (3.6-5.0) 07/28/18 06:15 Chloride 107 mmol/L (98-107) 07/28/18 06:15 Carbon Dioxide 20 mmol/L (21-33) L 07/28/18 06:15 Anion Gap 13 (10-20) 07/28/18 06:15 BUN 4 mg/dL (7-21) L 07/28/18 06:15 Creatinine 0.5 mg/dl (0.7-1.2) L 07/28/18 06:15 Est GFR ( Amer) > 60 07/28/18 06:15 Est GFR (Non-Af Amer) > 60 07/28/18 06:15 Random Glucose 74 mg/dL (70-110) 07/28/18 06:15 Calcium 8.3 mg/dL (8.4-10.5) L 07/28/18 06:15 Phosphorus 2.0 mg/dL (2.5-4.5) L 07/28/18 06:15 Magnesium 1.8 mg/dL (1.7-2.2) 07/28/18 06:15 Total Bilirubin 0.3 mg/dL (0.2-1.3) 07/28/18 06:15 AST 35 U/L (14-36) 07/28/18 06:15 ALT 18 U/L (7-56) 07/28/18 06:15 Alkaline Phosphatase 61 U/L (38-126) 07/28/18 06:15 Total Protein 6.8 g/dL (5.8-8.3) 07/28/18 06:15 Albumin 3.7 g/dL (3.0-4.8) 07/28/18 06:15 Globulin 3.1 gm/dL 07/28/18 06:15 Albumin/Globulin Ratio 1.2 (1.1-1.8) 07/28/18 06:15 Triglycerides 100 mg/dL (35-160) 07/26/18 00:40 Cholesterol 254 mg/dL (130-200) H 07/26/18 00:40 LDL Cholesterol Direct 130 mg/dL (0-129) H 07/26/18 00:40 HDL Cholesterol 114 mg/dL (29-60) H 07/26/18 00:40 Lipase 341 U/L (23-300) H 07/26/18 00:40 Procalcitonin < 0.05 NG/ML (0.19-0.49) L 07/27/18 06:40 Free T4 1.07 ng/dL (0.78-2.19) 07/26/18 00:40 TSH 3rd Generation 1.48 mIU/mL (0.46-4.68) 07/26/18 00:40 Venous Blood Potassium 3.7 mmol/L (3.6-5.2) 07/25/18 16:00 Urine Color Yellow (YELLOW) 07/25/18 17:00 Urine Appearance Clear (CLEAR) 07/25/18 17:00 Urine pH 6.5 (4.7-8.0) 07/25/18 17:00 Ur Specific [place] 1.015 (1.005-1.035) 07/25/18 17:00 Urine Protein Trace mg/dL (<30 mg/dL) H 07/25/18 17:00 Urine Glucose (UA) Negative mg/dL (NEGATIVE) 07/25/18 17:00 Urine Ketones 15 mg/dL (NEGATIVE) H 07/25/18 17:00 Urine Blood Trace-lysed (NEGATIVE) H 07/25/18 17:00 Urine Nitrate Negative (NEGATIVE) 07/25/18 17:00 Urine Bilirubin Negative (NEGATIVE) 07/25/18 17:00 Urine Urobilinogen 0.2 E.U./dL (<1 E.U./dL) 07/25/18 17:00 Ur Leukocyte Esterase Negative Mohini/uL (NEGATIVE) 07/25/18 17:00 Urine RBC 1 - 3 /hpf (0-2) H 07/25/18 17:00 Urine WBC 2 - 5 /hpf (0-6) 07/25/18 17:00 Ur Epithelial Cells 6 - 8 /hpf (0-5) H 07/25/18 17:00 Urine Bacteria Mod /hpf (NONE) 07/25/18 17:00 Urine Opiates Screen Negative (NEGATIVE) 07/27/18 16:09 Urine Methadone Screen Negative (NEGATIVE) 07/27/18 16:09 Ur Barbiturates Screen Negative (NEGATIVE) 07/27/18 16:09 Ur Phencyclidine Scrn Negative (NEGATIVE) 07/27/18 16:09 Ur Amphetamines Screen Negative (NEGATIVE) 07/27/18 16:09 U Benzodiazepines Scrn Negative (NEGATIVE) 07/27/18 16:09 U Oth Cocaine Metabols Negative (NEGATIVE) 07/27/18 16:09 U Cannabinoids Screen Negative (NEGATIVE) 07/27/18 16:09 RPR Nonreactive (NONREACTIVE) 07/27/18 06:40 Hepatitis A IgM Ab Negative (NEGATIVE) 07/26/18 00:40 Hep Bs Antigen Negative (NEGATIVE) 07/26/18 00:40 Hep B Core IgM Ab Negative (NEGATIVE) 07/26/18 00:40 Hepatitis C Antibody Negative (NEGATIVE) 07/26/18 00:40 HIV 1&2 Ag/Ab, 4th Gen Nonreactive (Nonreactive) 07/27/18 07:00 Attending/Attestation - Attestation I have personally seen and examined this patient.: Yes I have fully participated in the care of the patient.: Yes I have reviewed all pertinent clinical information, including history, physical exam and plan: Yes Notes (Text): 07/28/18 15:03 48 year old female with past medical history of UTI, pyelonephritis, bacteremia, uterine fibroids s/p myomectomy, ovarian cysts, and substance abuse who presented with complaint of right flank pain and intractable nausea/vomiting. CT abd/pelvis showed enlarged uterus with bilateral adnexal cysts; no evidence of pyelonephritis; possible ureteritis. Pelvis sonogram showed fibroid uterus and bilateral adnexal cysts. Renal ultrasound was negative. Patient was started on antibiotics by ID. GC/Ch study was sent but pending. During hospital stay she reported intractable nausea and vomiting. Vomiting was not corroborated with staff. She also reported intractable flank pain requesting pain medications. Patient was again seen this afternoon and explained the negative studies as above including renal ultrasound today to explain her flank pain. Explained to patient she should follow up with pet ambassador which she is agreeable to. Discharged on motrin, protonix and antibiotics as per ID. Follow up with pmd and pet ambassador. Shun Tarango MD Hospitalist.
[2018-07-28 15:40] VITALS: BP 153/94; PULSE 79; RESP 20; TEMP 98.1
--- NOTE | 2018-07-28 22:18 | PN ---
DATE: 07/28/2018 SUBJECTIVE: The patient is seen in bed, in no acute distress. The patient states she is still having some pain and continues to have pain, but she appears to be comfortable. OBJECTIVE: VITAL SIGNS: Temperature is 98, blood pressure is 150/90, and respiratory rate of 18. HEENT: Unremarkable. NECK: Supple. LUNGS: Have decreased breath sounds. HEART: Normal S1 and S2. ABDOMEN: Soft. LABORATORY EXAMINATION: Reveals the patient to have a white count of 4.8, hemoglobin of 12, and platelets of 271. Urinalysis is noted. Toxicology is noted. Serology is reviewed. The patient had a renal ultrasound, which was negative. Urine and blood cultures are negative. ASSESSMENT AND PLAN: This is a 48-year-old female who was admitted with right flank pain and had a CAT scan of the abdomen left-sided community-acquired pneumonia, which she could not explain the cause of the right-sided flank pain, thus far most of the workup is negative. Waiting for Chlamydia and GC. Dino Hills MD
--- NOTE | 2018-07-30 09:35 | PN ---
DATE: 07/27/2018 SUBJECTIVE: The patient is in bed, in no acute distress, nontoxic. PHYSICAL EXAMINATION: VITAL SIGNS: Temperature is 98, blood pressure is 120/70 and respiratory rate is 16. HEENT: Unremarkable. NECK: Supple. LUNGS: Decreased breath sounds. HEART: Normal S1 and S2. ABDOMEN: Soft. LABORATORY DATA: Reveals a white count of 4.5 and hemoglobin 11. Chemistries are normal. Two procalcitonin is negative. Urinalysis is unremarkable. Toxicology is negative. Serology is negative. Microbiology reveals blood cultures have no growth. Urine culture is pending. REVIEW OF ORDERS: Reveals the patient to be on doxycycline and ceftriaxone and Dr. Tarango's note is reviewed. The patient's CAT scan reveals questionable left-sided infiltrate was not explained, her right-sided pelvic pain. ASSESSMENT AND PLAN: This is a 48-year-old female admitted with right flank pain, CAT scan with questionable left-sided community-acquired pneumonia. Culture is negative. On doxycycline and Rocephin. Urine cultures pending. We will follow with you. The patient was seen early this morning in room 566, bed 1. Dino Hills MD
== END 2018-07-28 17:49 | disposition home or self-care (01) | DRG 369 ==
LOC: ED 13:15 → ERH 21:09 → 5RNO 22:40 → OBSVTOIN 07-27 15:45
PROVIDERS: ADMIT Hospitalist; ATTEND Internal Medicine
DX: D25.9 Leiomyoma of uterus, unspecified (principal); N83.202 Unspecified ovarian cyst, left side; N83.201 Unspecified ovarian cyst, right side; N92.6 Irregular menstruation, unspecified; I10 Essential (primary) hypertension; Z87.440 Personal history of urinary (tract) infections; Z87.891 Personal history of nicotine dependence; F12.90 Cannabis use, unspecified, uncomplicated; Z87.892 Personal history of anaphylaxis; Z91.013 Allergy to seafood; Z98.51 Tubal ligation status; Z86.19 Personal history of other infectious and parasitic diseases; N28.89 Other specified disorders of kidney and ureter